=== PATIENT | female | born 1955 | race Caucasian/White ===

== ENCOUNTER 2024-04-05 13:51 | Emergency (ER) | payer MEDICARE, MEDICAID, SELFPAY ==
[2024-04-05] VITALS (39 sets, daily range): BP systolic 152–223; BP diastolic 64–164; PULSE 86–104; RESP 12–23; TEMP 37.2; O2SAT 88–97
--- NOTE | 2024-04-05 14:00 | RT.EKG_ITS ---
APPROVED REPORT Exam: Resting ECG Reason for Exam: General malaise Patient Location: E HR:95 bpm ECG Measurements Heart Rate 95 AXIS UT 147 P 59 QRSd 90 QRS -21 QT 387 T 25 QTc 485 Conclusion Sinus rhythm Rate 95 No STEMI
--- NOTE | 2024-04-05 14:08 | ED.GENADUL_ITS ---
Discharge Plan Disposition Patient Disposition: Home Condition: Stable Discharge Details Clinical Impression: Hypertension, Acute UTI, Candidal vulvovaginitis, Diabetes Primary Care Provider: Unknown,Unknown ED Provider: Bhumi Philip Home Meds and New Rx's Prescriptions: New cephalexin 500 mg capsule 500 mg PO QID 7 Days Qty: 28 0RF lisinopril 5 mg tablet 5 mg PO DAILY Qty: 30 0RF No Action CELEXA 40 MG tablet 40 mg PO DAILY Qty: 30 DESYREL 100 MG tablet 100 mg PO HS Qty: 30 GLUCOTROL 5 MG tablet 5 mg PO DAILY Qty: 30 GLUCOTROL 5 MG tablet 5 mg PO DAILY Qty: 30 HYDRODIURIL 25 MG tablet 25 mg PO DAILY Qty: 30 LEVOTHROID 125 MCG tablet 125 mcg PO DAILY Qty: 30 VALTREX 500 MG tablet 500 mg PO VALTREX 500 MG tablet 500 mg PO ZANTAC 150 MG capsule 150 mg PO ZANTAC 150 MG tablet 150 mg PO BID Qty: 30 ZESTRIL 20 MG tablet 20 mg PO DAILY Qty: 30 ZOCOR 20 MG tablet 20 mg PO HS Qty: 30 DETROL 1 MG tablet 1 mg PO BID Qty: 60 Discharge Instructions Instructions: Urinary tract infection - Discharge instructions Additional Instructions: You were seen in the emergency department today for vaginal discharge and urinary changes and were found to have have a vaginal yeast infection as well as a urinary tract infection. You also have uncontrolled diabetes and hypertension, though there was no evidence of damage to your heart or your kidneys on your workup today. You were provided with medications to treat your yeast infection, as well as the first dose of antibiotics for your urinary tract infection. You need to take all the antibiotics as prescribed, and take them until they are gone, even if you start to feel better. I have prescribed you lisinopril to start taking for your blood pressure, but you need to follow-up with your prima ry care provider in the next few days to discuss this visit and any symptoms that change, worsen, or persist. They will likely make changes to your medication regimen to get your blood pressure and diabetes back under control. You were given resources on aging from our care management team, and should utilize those as they are helpful to you. Thank you for allowing us to be part of your care. Discharge Data Discharge Date/Time-TO BE ENTERED AT DEPARTURE: 04/05/24 17:42 HPI General Mode of arrival: ambulatory . Date/Time Provider Initiated Documentation: 04/05/24 13:59 . Limitations to Documentation: no limitations . Information obtained by: patient, EMS and old records reviewed . HPI Narrative: MDM: This is a 68-year-old female patient presenting for evaluation of poor social supports and difficulty accessing the healthcare system, as well as vaginal discharge and blood from the perineum. My differential includes but is not limited to UTI, vaginitis/vaginosis, certainly considered sexually transmitted diseases, GI bleed/bloody stools including hemorrhoidal disease, diverticular bleed, AVM, colon cancer, diverticulitis. I considered metabolic electrolyte derangements, kidney injury, liver disease, anemia, poor nutritional status and dehydration. The patient's blood pressure is certainly quite elevated though she has no headache, changes in vision, neurodeficits to suggest CVA or intracranial hemorrhage, and no chest pain to suggest ACS. I also considered respiratory disease including pneumonia and upper respiratory sym ptoms, though the patient is without shortness of breath or new oxygen requirement to strongly suggest these etiologies. We will obtain laboratory studies to include CBC, CMP, magnesium, troponin, ur inalysis, and a vaginal pathogen's panel and GC/CT swab. We will obtain an EKG. I anticipate that this patient will require a care management consult pending completion of her workup given the poor living situation at home. ED Course: I independently interpreted the laboratory studies, which show no significant leukocytosis, anemia, or thrombocytopenia. The chemistry panel is without evidence of electrolyte abnormality, kidney dysfunction, or liver injury, with the exception of an elevated blood glucose of 362 and a low magnesium of 1.1. The patient's urinalysis is frankly positive with many bacteria, pyuria, and nitrites. I provided her with a dose of ceftriaxone and she will have a prescription for Keflex sent to her pharmacy. Her vaginal pathogen's panel was also positive for yeast, and she received a one-time dose of 150 mg fluconazole. Troponin was negative and I reviewed the EKG, which is nonischemic, and I have a low concern for endorgan damage after this workup due to her uncontrolled hypertension and diabetes. I did provide her with a dose of lisinopril, 10 mg, for management of her blood pressure as well as a prescription for this medication to be taken in the home environment. Care management met with the patient and provided her with resources on aging, and referral was placed to the [facility] for establishment of primary care. At this time, the patient has had a full medical evaluation and is safe for discharge to home. They are hemodynamically stable, ambulatory, and tolerating PO. They are understanding of the follow-up plan and return precautions. They left our facility without incident. Bhumi Philip MD HPI: This is a 68-year-old female patient with a past medical history significant for hypertension, hypothyroidism, presenting for evaluation of general malaise and vaginal discharge. The patient reports that she has been unable to access the healthcare system successfully for approximately 18 months. She is residing at a home with poor social supports, states that she has not been able to clean her home, clean herself, make it to medical appointments or access her prescriptions. She has noted for the past several months that sometimes when she wipes herself after using the bathroom she notes some blood, but is not sure if it is coming from her stool or from her vagina. She has noted a foul vaginal odor as well as new vaginal discharge and is concerned for a yeast infection. She reports that she is also unsure if she has a UTI. The patient reports that she is supposed to be cared for by her daughter, but states that her daughter is unwell. Her son, who resides in [place], plans to take her home after her visit to the hospital today. The patient specifically denies physical abuse or neglect in the outpatient environment. The patient reports that she just does not feel well but does not have any specific symptoms. Specifically she denies headache, chest pain, shortness of breath, abdominal pain, nausea or vomiting. She received 500 cc of fluid from EMS prior to arrival. The patient was noted to have a low-grade elevation in temperature to 99, no true fevers measured, and was hypertensive. Exam: Gen: Awake and alert, disheveled appearing adult patient with notable poor hygiene HEENT: Non-icteric sclera, pupils equal and reactive Neck: Supple Lungs: No apparent respiratory distress, normal respiratory effort. CV: Appears well perfused, strong and symmetrical distal pulses Abdomen: Non-distended, soft, nontender MSK: Moves 4 extremities without apparent limitation in ROM Skin: Visualized skin without rashes, cyanosis. Neuro: Slow but steady gait, no obvious focal deficits or facial asymmetry. Speaks in full, clear sentences. Psych: Appropriate for situation. Related Data Home Medications ?Medication ?Instructions ?Recorded ?Confirmed Celexa 40 mg PO DAILY ##30 09/16/12 Desyrel 100 mg PO HS ##30 09/16/12 Detrol 1 mg PO BID ##60 09/16/12 Glucotrol 5 mg PO DAILY ##30 09/16/12 Glucotrol 5 mg PO DAILY ##30 09/16/12 Hydrodiuril 25 mg PO DAILY ##30 09/16/12 Levothroid 125 mcg PO DAILY ##30 09/16/12 Valtrex 500 mg PO 09/16/12 Valtrex 500 mg PO 09/16/12 Zantac 150 mg PO 09/16/12 Zantac 150 mg PO BID ##30 09/16/12 Zestril 20 mg PO DAILY ##30 09/16/12 Zocor 20 mg PO HS ##30 09/16/12 cephalexin 500 mg capsule 500 mg PO QID 7 days #28 caps 04/05/24 lisinopril 5 mg tablet 5 mg PO DAILY #30 tabs 04/05/24 Previous Rx's ?Medication ?Instructions ?Recorded cephalexin 500 mg capsule 500 mg PO QID 7 days #28 caps 04/05/24 lisinopril 5 mg tablet 5 mg PO DAILY #30 tabs 04/05/24 General Stated Complaint: Urinary ADDY: 3 Course Vital Signs Vital signs: Vital Signs Temperature 37.2 C 04/05/24 13:50 Pulse 104 H 04/05/24 13:50 Respiratory Rate 20 04/05/24 13:50 Blood Pressure 196/91 H 04/05/24 13:50 Pulse Oximetry 95 04/05/24 13:50 Temperature 37.2 C 04/05/24 13:57 Temperature Source Oral 04/05/24 13:57 Pulse 104 H 04/05/24 13:57 Respiratory Rate 20 04/05/24 13:57 Respiratory Effort Normal 04/05/24 13:57 Blood Pressure 196/91 H 04/05/24 13:57 Blood Pressure Position Sitting 04/05/24 13:57 Pulse Oximetry 95 04/05/24 13:57 Oxygen Delivery Method Room Air 04/05/24 13:57 Oxygen Flow Rate 0 04/05/24 13:50 Pain Level 0 04/05/24 13:50 Medical Decision Making Quality:SDOH Health Related Social Needs: No Data to Display PFSH All Active Problems (Updated 04/05/24 @ 15:59 by Bhumi Philip MD) Diabetes (Chronic) Candidal vulvovaginitis (Acute) Acute UTI (Acute) Hypertension (Chronic) Social History Smoking risk assessment performed?: No
[2024-04-05 14:18] LABS: Abs Immature Grans 0.04 10^3/uL (0.0-0.06); Absolute Basophil Count 0.06 10^3/uL (0.0-0.2); Absolute Eosinophil Count 0.17 10^3/uL (0.0-0.7); Absolute Monocyte Count 0.76 10^3/uL (0.1-0.8); Absolute Neutrophil Count 5.78 10^3/uL (1.2-6.7); Basophils % 0.6 %; Eosinophils % 1.6 %; HGB 13.3 g/dL (11.2-15.7); Immature Grans % 0.4 %; Lymphocytes % 35.2 %; MCH 28.5 pg (27.0-33.0); MCHC 31.7 % (32.0-36.0); MCV 90 fL (80-95); MPV 9.6 fL (8.0-11.0); Monocytes % 7.2 %; Platelet Count 243 10^3/uL (130-400); RBC 4.66 10^6/uL (3.93-5.22); RDW 12.8 % (11.7-14.6); RDW-SD 42.4 fL; WBC 10.51 10^3/uL (4.4-10.8)
[2024-04-05 14:37] LABS: ALT 26 U/L (14-59); AST 13 U/L (15-37); Albumin 3.5 g/dL (3.4-5.0); Alkaline Phosphatase 155 U/L (46-116); BUN 12 mg/dL (7-18); Bilirubin, Total 0.56 mg/dL (0.2-1.0); CREATININE 0.9 mg/dL (0.55-1.02); Chloride 99 mmol/L (98-107); Estimated GFR 68.77 (mL/min/1.73m2); Glucose 362 mg/dL (74-106); Magnesium 1.1 mg/dL (1.8-2.4); Potassium 3.5 mmol/L (3.5-5.1); Sodium 136 mmol/L (136-145); Total Protein 7.6 g/dL (6.4-8.2); Troponin I < 50 ng/L (< or =60)
[2024-04-05 14:43] LABS: Bilirubin Negative (Negative); Blood Trace-intact (Negative); Clarity Cloudy (Clear); Glucose >=1000 mg/dL (Negative); Ketones Trace mg/dL (Negative); Leukocyte Esterase Negative (Negative); Nitrite Positive (Negative); Urobilinogen 0.2 mg/dL (Up to 0.2); pH 5.5 (5-8)
[2024-04-05] MEDS: MAGNESIUM SULFATE 2 GM/50 ML BAG IVINF (14:47)
[2024-04-05 14:49] LABS: Bacteria Many HPF (Negative); C & S Indicated? Yes; Crystals Negative HPF (Negative); Epithelial Cells Rare HPF (Negative); Mucus Negative (Negative)
[2024-04-05] MEDS: Fluconazole 150 MG TAB PO (16:16)
[2024-04-05] MEDS: Lisinopril 10 MG TAB PO (16:17)
--- NOTE | 2024-04-05 16:42 | NUR.NOTE ---
Referral faxed to [facility]; Graciela Justin managed care liaison for telephone call; needs PCP. Establish care, diabetes, HTN, within 1 week. Nursing Note:
[2024-04-05] MEDS: cefTRIAXone 1 GM/50 ML BAG IVPB (16:50)
[2024-04-07 12:55] LABS: Chlamydia Result Negative (Negative); GC Result Negative (Negative)
== END 2024-04-05 17:42 | disposition home or self-care (01) ==
LOC: ER 17:16
PROVIDERS: Emergency Medicine; Emergency Provider Emergency Medicine
DX: R53.1 Weakness; N39.0 Urinary tract infection, site not specified; B37.31 Acute candidiasis of vulva and vagina; I10 Essential (primary) hypertension; E11.9 Type 2 diabetes mellitus without complications; E03.9 Hypothyroidism, unspecified; Z79.899 Other long term (current) drug therapy
CPT/HCPCS: 36415; 80053; 87077; 87491; 87591; 93005; 96365; 96366; 96375; 99284; 81003; 81015; 83735; 84484; 85025; 87086; 87186; 87480; 87510; 87660; 93010; J0696; J3475

== ENCOUNTER 2024-04-08 16:58 | Outpatient (REF) | payer MEDICARE, MEDICAID, SELFPAY ==
[2024-04-08 17:42] LABS: Magnesium 1.2 mg/dL (1.8-2.4); TSH (W/Ref FT4) 8.94 uIU/mL (0.36-3.74)
[2024-04-08 18:05] LABS: FREE T4 1.26 ng/dL (0.76-1.46)
== END 2024-04-08 16:59 | disposition home or self-care (01) ==
LOC: NCHCN 16:58
PROVIDERS: Visit Provider Family Medicine
DX: E03.9 Hypothyroidism, unspecified (principal); E83.42 Hypomagnesemia
CPT/HCPCS: 83735; 84439; 84443

== ENCOUNTER 2024-04-28 17:58 | Outpatient (REF) | payer MEDICARE, MEDICAID, SELFPAY | END 2024-04-28 17:59 | disposition home or self-care (01) | LOC: NCHCN 17:58 | PROVIDERS: PCP Family Medicine; Visit Provider Family Medicine | DX: R31.9 Hematuria, unspecified (principal); R82.89 Other abnormal findings on cytological and histological examination of urine | CPT/HCPCS: 87077; 87086; 87186 ==

== ENCOUNTER 2024-06-18 11:31 | Outpatient (REF) | payer MEDICARE, MEDICAID, SELFPAY ==
[2024-06-18 14:54] LABS: Abs Immature Grans 0.03 10^3/uL (0.0-0.06); Absolute Basophil Count 0.05 10^3/uL (0.0-0.2); Absolute Eosinophil Count 0.17 10^3/uL (0.0-0.7); Absolute Lymphocyte Count 3.23 10^3/uL (1.2-3.4); Absolute Monocyte Count 0.73 10^3/uL (0.1-0.8); Absolute Neutrophil Count 6.14 10^3/uL (1.2-6.7); Basophils % 0.5 %; Eosinophils % 1.6 %; HCT 39.7 % (36.0-46.0); HGB 12.5 g/dL (11.2-15.7); Immature Grans % 0.3 %; Lymphocytes % 31.2 %; MCH 27.3 pg (27.0-33.0); MCHC 31.5 % (32.0-36.0); MCV 87 fL (80-95); MPV 10.1 fL (8.0-11.0); Monocytes % 7.1 %; Neutrophils % 59.3 %; Platelet Count 315 10^3/uL (130-400); RBC 4.58 10^6/uL (3.93-5.22); RDW 12.6 % (11.7-14.6); RDW-SD 39.6 fL; WBC 10.35 10^3/uL (4.4-10.8)
[2024-06-18 15:22] LABS: Magnesium 1.6 mg/dL (1.8-2.4); TSH (W/Ref FT4) 3.76 uIU/mL (0.36-3.74)
[2024-06-18 15:48] LABS: FREE T4 1.22 ng/dL (0.76-1.46)
== END 2024-06-18 11:32 | disposition home or self-care (01) ==
LOC: NCHCN 11:31
PROVIDERS: PCP Family Medicine; Visit Provider Family Medicine
DX: E03.9 Hypothyroidism, unspecified (principal)
CPT/HCPCS: 83735; 84439; 84443; 85025

== ENCOUNTER 2024-06-28 01:15 | Outpatient (CLI) | payer MEDICARE, MEDICAID, SELFPAY ==
--- NOTE | 2024-06-28 | DI.US_ITS ---
Exam(s) US PELVIS TRANSVAGINAL EXAM: US PELVIS TRANSVAGINAL CLINICAL HISTORY: Abnl uterine and vaginal bleeding, N93.9 TECHNIQUE: Transabdominal and transvaginal imaging was performed using standard protocol. COMPARISON: No exams were available for comparison FINDINGS: The exam is limited by patient body habitus. UTERUS: Anteverted. 9.1 x 4.7 x 5.7 cm Endometrium: Grossly thickened, proximally 2.1 mm. The endometrial borders are not well-defined. Myometrium: 5 centimeter fibroid near the fundus. Cervix: Unremarkable. OVARIES: Right: Cyst or mass: None. Left: Not visualized. CUL-DE-SAC: Free fluid: None. IMPRESSION: Ill-defined, thickened heterogeneous endometrium. MRI could be performed for further evaluation. 5 centimeter fibroid. Right ovary is grossly unremarkable. Left ovary not visualized. DATA REPOSITORY:
== END 2024-06-28 01:35 ==
PROVIDERS: PCP Family Medicine; Visit Provider Family Medicine
DX: N93.9 Abnormal uterine and vaginal bleeding, unspecified (principal)
CPT/HCPCS: 76830; 76856

== ENCOUNTER 2024-08-17 17:01 | Outpatient (REF) | payer MEDICARE, MEDICAID, SELFPAY ==
[2024-08-17 15:48] LABS: Abs Immature Grans 0.02 10^3/uL (0.0-0.06); Absolute Eosinophil Count 0.21 10^3/uL (0.0-0.7); Absolute Lymphocyte Count 3.31 10^3/uL (1.2-3.4); Absolute Monocyte Count 0.76 10^3/uL (0.1-0.8); Absolute Neutrophil Count 6.87 10^3/uL (1.2-6.7); Basophils % 0.4 %; Eosinophils % 1.9 %; HCT 41.2 % (36.0-46.0); HGB 12.8 g/dL (11.2-15.7); Immature Grans % 0.2 %; Lymphocytes % 29.5 %; MCH 27.1 pg (27.0-33.0); MCHC 31.1 % (32.0-36.0); MCV 87 fL (80-95); MPV 10.6 fL (8.0-11.0); Monocytes % 6.8 %; Neutrophils % 61.2 %; Platelet Count 261 10^3/uL (130-400); RBC 4.72 10^6/uL (3.93-5.22); RDW 13.4 % (11.7-14.6); RDW-SD 42.9 fL; WBC 11.22 10^3/uL (4.4-10.8)
[2024-08-17 15:52] LABS: Absolute Basophil Count 0.04 10^3/uL (0.0-0.2)
[2024-08-17 16:08] LABS: ALT 18 U/L (14-59); AST 13 U/L (15-37); Albumin 3.8 g/dL (3.4-5.0); Alkaline Phosphatase 143 U/L (46-116); Anion Gap 8.7 mmol/L (3-11); BUN 20 mg/dL (7-18); Bilirubin, Total 0.23 mg/dL (0.2-1.0); CO2 29.3 mmol/L (21.0-32.0); CREATININE 0.8 mg/dL (0.55-1.02); Calcium 9.8 mg/dL (8.5-10.1); Calculated LDL 71 mg/dL (<100); Chloride 107 mmol/L (98-107); Cholesterol 154 mg/dL (<200); Estimated GFR 78.72 (mL/min/1.73m2); Glucose 186 mg/dL (74-106); HDL Cholesterol 41 mg/dL (40-60); Magnesium 1.5 mg/dL (1.8-2.4); Potassium 3.7 mmol/L (3.5-5.1); Sodium 145 mmol/L (136-145); TSH (W/Ref FT4) 4.43 uIU/mL (0.36-3.74); Total Protein 7.6 g/dL (6.4-8.2); Triglyceride 212 mg/dL (<150)
[2024-08-17 16:38] LABS: FREE T4 1.07 ng/dL (0.76-1.46)
== END 2024-08-17 17:02 | disposition home or self-care (01) ==
LOC: NCHCN 17:01
PROVIDERS: PCP Family Medicine; Visit Provider Family Medicine
DX: E03.9 Hypothyroidism, unspecified (principal); N93.9 Abnormal uterine and vaginal bleeding, unspecified
CPT/HCPCS: 80053; 80061; 83735; 84439; 84443; 85025

== ENCOUNTER 2024-08-26 22:52 | Outpatient (REF) | payer MEDICARE, MEDICAID, SELFPAY ==
[2024-08-26 16:19] LABS: Bilirubin Negative (Negative); Blood Moderate (Negative); Clarity Cloudy (Clear); Glucose Negative (Negative); Ketones Negative (Negative); Leukocyte Esterase Trace (Negative); Nitrite Negative (Negative); Specific Gravity >= 1.030 (1.005-1.025); Urobilinogen 0.2 mg/dL (Up to 0.2); pH 5.5 (5-8)
[2024-08-26 17:16] LABS: Bacteria Many HPF (Negative); C & S Indicated? C&S Done As Ordered; Casts Negative LPF (Negative); Crystals Negative HPF (Negative); Epithelial Cells Many HPF (Negative); Mucus Negative (Negative)
== END 2024-08-26 22:53 | disposition home or self-care (01) ==
LOC: NCHCN 22:52
PROVIDERS: PCP Family Medicine; Visit Provider Nurse Practitioner Family
DX: R82.90 Unspecified abnormal findings in urine (principal)
CPT/HCPCS: 81003; 81015; 87086

== ENCOUNTER 2024-09-07 15:36 | Outpatient (REF) | payer MEDICARE, MEDICAID, SELFPAY ==
--- NOTE | 2024-09-07 15:00 | ENDOMET_PTH ---
PATIENT: Stephanie العراقي LOC: [facility] U#:[id number] AGE/SX: 69/F ROOM: RE09/07/[address]: Doris Mcbride MD : [id number] BED: DIS: 09/07/2024 SPEC #: [id number] RECD: 09/07/24 16:47 STATUS: AMBER REQ #: [id number] NANI: 09/07/24 15:[address]: Doris Mcbride DEPT: Surgical Specimen RECD BY: Michelle Malik ENTERED: 09/07/24 16:47 SP TYPE: Endomet OTHR DR: Kika Norman Tissues: 1 - ENDOMETRIUM BX/SALENA Procedures: GROSS AND MICRO LEVEL 4 IMMUNOPEROXIDASE STAIN Comments: [id number] (PLEASE [facility])
== END 2024-09-07 15:37 | disposition home or self-care (01) ==
LOC: LBN 15:36
PROVIDERS: PCP Family Medicine; Visit Provider Obstetrics & Gynecology
DX: N95.0 Postmenopausal bleeding (principal); C55 Malignant neoplasm of uterus, part unspecified
CPT/HCPCS: 88305; 88361

== ENCOUNTER 2024-10-03 18:12 | Inpatient (IN) | payer MEDICARE, MEDICAID, SELFPAY ==
[2024-10-03] VITALS (49 sets, daily range): BP systolic 100–206; BP diastolic 52–103; PULSE 94–138; RESP 16–33; TEMP 39.5; O2SAT 90–99
--- NOTE | 2024-10-03 18:00 | RT.EKG_ITS ---
APPROVED REPORT Exam: Resting ECG Reason for Exam: Increased Heart Rate Patient Location: E HR:129 bpm ECG Measurements Heart Rate 129 AXIS NC 145 P 67 QRSd 77 QRS -20 QT 312 T 56 QTc 458 Conclusion Sinus tachycardia...rate> 99 Probable LVH with secondary repol abnrm...multiple LVH criteria I have reviewed and interpreted ECG and agree with software generated interpretation. There are no significant changes compared to prior EKG performed on 04/05/2024 at 14:35.
--- NOTE | 2024-10-03 18:06 | W.ED.GENAD ---
Discharge Plan Disposition Condition: Stable Discharge Details Chief Complaint: RespSymp Clinical Impression: Serous carcinoma of body of uterus, Endometritis, Altered mental status, Severe sepsis Primary Care Provider: Kika Norman [facility] Prescriptions: No Action lisinopril 5 mg tablet 20 mg PO DAILY aspirin [Adult Aspirin Regimen] 81 mg tablet,delayed release (DR/EC) 81 mg PO DAILY glipizide 10 mg tablet 10 mg PO DAILY Januvia 100 mg tablet 100 mg PO DAILY levothyroxine 125 mcg capsule 125 mcg PO DAILY pantoprazole 40 mg tablet,delayed release (DR/EC) 40 mg PO DAILY simvastatin 20 mg tablet 20 mg PO DAILY tolterodine 1 mg tablet 1 mg PO BID citalopram 40 mg tablet 40 mg PO DAILY tolterodine [Detrol] 1 mg tablet 1 mg PO BID Januvia 100 mg tablet 100 mg PO DAILY magnesium oxide 400 mg magnesium tablet 400 mg PO DAILY (DME) Prevail Brief Large Misc See Rx Instructions .Route Qty: 64 6RF Rx Instructions: As directed ibuprofen 600 mg tablet 600 mg PO Q6H PRN (Reason: pain) Qty: 60 0RF HPI General Mode of arrival: EMS. Date/Time Provider Initiated Documentation: 10/03/24 18:20. Limitations to Documentation: no limitations. Information obtained by: patient, family, RN notes reviewed and old records reviewed. HPI Narrative: Patient presenting to ED from home with fever, chills, altered mental status. Patient apparently woke up this morning not feeling right. She has become worse over the course of today. She is reporting lower abdominal pain. Denies having a cough, chest pain, shortness of breath. Son reporting that she is not at her baseline mentally and seems very off. No report of any trauma. Patient without headache. Related Data Home Medications ?Medication ?Instructions ?Recorded ?Confirmed aspirin 81 mg tablet,delayed 81 mg PO DAILY 09/07/24 10/03/24 release (Adult Aspirin Regimen) citalopram 40 mg tablet 40 mg PO DAILY 09/07/24 10/03/24 glipizide 10 mg tablet 10 mg PO DAILY 09/07/24 10/03/24 levothyroxine 125 mcg capsule 125 mcg PO DAILY 09/07/24 10/03/24 lisinopril 5 mg tablet 20 mg PO DAILY 09/07/24 10/03/24 magnesium oxide 400 mg PO DAILY 09/07/24 10/03/24 pantoprazole 40 mg tablet,delayed 40 mg PO DAILY 09/07/24 10/03/24 release simvastatin 20 mg tablet 20 mg PO DAILY 09/07/24 10/03/24 sitagliptin phosphate 100 mg 100 mg PO DAILY 09/07/24 10/03/24 tablet (Januvia) sitagliptin phosphate 100 mg 100 mg PO DAILY 09/07/24 10/03/24 tablet (Januvia) tolterodine 1 mg tablet 1 mg PO BID 09/07/24 10/03/24 tolterodine 1 mg tablet (Detrol) 1 mg PO BID 09/07/24 10/03/24 diaper,brief,adult,disposable #64 ea 09/30/24 (Prevail Brief Large) ibuprofen 600 mg tablet 600 mg PO Q6H PRN pain #60 tabs 09/30/24 10/03/24 Previous Rx's ?Medication ?Instructions ?Recorded diaper,brief,adult,disposable #64 ea 09/30/24 (Prevail Brief Large) ibuprofen 600 mg tablet 600 mg PO Q6H PRN pain #60 tabs 09/30/24 Allergies Allergy/AdvReac Type Severity Reaction Status Date / Time sulfamethoxazole (From Allergy Hives Verified 10/03/24 18:19 Bactrim) trimethoprim (From Bactrim) Allergy Hives Verified 10/03/24 18:19 General ADDY: 3 Exam Narrative Exam Narrative: Const: WDWN elderly female in NAD. VS per triage. HEENT: NC/AT. Normal facial exam. Neck: Supple. Trachea midline. Lungs: Normal respiratory effort. Lungs are clear. Cor: RRR without murmur. Good radial pulses. GI: Soft/ND/NT. Neuro: A+O x 3. Normal speech. Cranial nerves II - XII grossly intact. No gross motor or sensory deficit. Ext: No C/C/E. Medical Decision Making Patient presenting to ED from home with fever and altered mental status. She is restless and per the son not at baseline but does not appear overly confused. Complains of low abdominal pain. 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 Complains of abdominal pain but appears to have a benign abdomen. IV is in place but she is received very minimal fluid during transport. She is tachycardic and febrile here. Blood pressures are soft but not truly hypotensive. Second IV established and laboratory studies sent. Blood cultures and nasal swab obtained. Straight cath urine ordered. Initial fluid bolus of 1500 total ordered. Patient's lactate came back elevated greater than 4. Second liter of fluids to be given for a total of 2500 mL, just under the 30 cc/kg range. She was given IV acetaminophen for fever. Her white count is elevated to 14. Chemistries unremarkable except for slight gap of 15 and a glucose of almost 300. Magnesium is low and has been previously. She will be repleted as she is 1.3 today. Liver function and lipase are fine. Urinalysis with red cells but no evidence of infection. Nasal swab has returned negative. Currently pending CT scans which are difficult to obtain due to restlessness. Will try IV lorazepam to help with obtaining images. Only able to obtain CT head which was limited but negative per preliminary radiology read. Has also not received much of her fluid bolus due to repeatedly bending her arm. 14-gauge ultrasound-guided IV placed by nursing. Will resume fluid bolus. Will give 2.5 mg haloperidol IV in an attempt to obtain CT of the body given negative urine and negative swab. Able to obtain CT after Haldol. Received a call directly from radiologist. Patient has noted to have an enlarged uterus with evidence of debris and air in the endometrium and uterus itself highly suggestive of infection. No other findings noted. Patient started on IV Zosyn. Heart rate and blood pressure improved with fluid bolus which is still ongoing. Discussed with Dr. Wheat from [facility] here. Recommend transfer to higher level of care. Call placed to [facility]. Discussed with patient and family who is aware of diagnosis and need for transfer and consents to same. Repeat lactate now normal after fluids and heart rate/BP now normal. [facility] is at capacity and cannot take patient. [facility] has been contacted. Care turned over to Dr. Card pending transfer. Medical Records Medical records reviewed: Yes I reviewed the patient's medical records. Medical records narrative: Supervisor Mails notes/Pathology Report Lab Data Lab results reviewed: Yes I reviewed the patient's lab results. Lab results narrative: see [facility] ECG Data Attestation: I personally reviewed and interpreted this ECG (s) as follows: Prior ECG tracings: available for review Interpretation: see EKG/MDM Critical Care Time Critical Care Time Critical Care Time: Yes Total Critical Care Time: 60 Attestation: Upon my evaluation, this patient had a high probability of imminent or life-threatening deterioration, which required my direct attention, intervention, and personal management. I have personally provided 60 minutes of critical care time exclusive of time spent on separately billable procedures. Time includes monitoring for potential decompensation, ordering of tests and medications, review of laboratory and radiology results, discussion with consultants and documentation . Interventions were performed as documented above in procedures. PFSH All Active Problems (Updated 10/03/24 @ 21:46 by Sebastien Hensley MD) Severe sepsis (Acute) Altered mental status (Acute) Endometritis (Acute) Serous carcinoma of body of uterus (Acute) Endometrial cancer determined by uterine biopsy (Acute) Postmenopausal bleeding (Acute) thickened endometrium Endo bx 09/07/24 Medical History Psoriasis Vitamin D deficiency Anemia Steatosis of liver Hypomagnesemia Panic disorder Urinary incontinence Diplegic cerebral palsy GERD (gastroesophageal reflux disease) Hypothyroidism Hyperlipidemia Diabetes Hypertension Social History Smoking/Tobacco Use Status: Never Smoking risk assessment performed?: Yes Alcohol Intake: former Substance use type: does not use Female Reproductive History Menstrual Age of Menarche: 8 History History Para 8 Hx # Term Pregnancies Multiple births Hx # Pregnancies Ectopic pregnancies AB induced Hx Number of Living Children AB spontaneous
--- NOTE | 2024-10-03 18:20 | DI.CT_ITS ---
Exam(s) CT CHEST/ABD/PEL W EXAM: CT CHEST/ABD/PEL W CLINICAL HISTORY: fever, abdominal pain. TECHNIQUE: Imaging Protocol: Axial computed tomography images with coronal and sagittal reformatted images were created and reviewed. Computer aided detection (CAD) was utilized. CONTRAST MATERIAL: Intravenous: Omnipaque 350 Contrast volume:100 ml Oral: no COMPARISON: Pelvic ultrasound 28 June 2024 FINDINGS: CHEST: Tracheobronchial tree: Patent. Pulmonary parenchyma: No consolidation or dominant measurable mass. Dependent changes. Pleura: No effusion or pneumothorax. Mediastinum: Small hiatal hernia. Aorta: Thoracic portion non-dilated. Pulmonary arteries: Not dilated. No visible emboli. Heart: No pericardial effusion. Bones: Prominent endplate osteophytes. No lytic or blastic lesions.No compression fractures. Soft tissues: Unremarkable. ABDOMEN and PELVIS: Liver: Normal density. No measurable mass. Gallbladder and biliary tract: Not visualized. No biliary dilatation. Pancreas: Normal density, no abnormal calcifications or inflammatory process. Spleen: Normal. Kidneys: Normal size, contour and axis. Tiny nonobstructing stone lower pole left kidney. No obstruc tive uropathy. No suspicious masses seen. Adrenal glands: No masses seen. Aorta: Abdominal portion non-dilated. Lymph nodes: Within normal limits. Soft tissues: Unremarkable. Bladder: Nearly empty. Unremarkable. Bowel: No obstruction or bowel wall thickening. Peritoneal cavity: No ascites. No focal collection. No mesenteric inflammatory response. No free ai r. Bones: Degenerative changes and mild scoliosis. Reproductive organs: The endometrium is markedly thickened up to 5 cm. There is heterogeneous high a ttenuation material which could represent hemorrhage. The endometrium was thickened on the prior ult rasound and was ill-defined. There is also air suspicious for infection. Small contour deformity an terior lower uterine segment could represent a small fibroid. IMPRESSION: No acute abnormality in the chest. Marked endometrial thickening high-density and air which could indicate infection and hemorrhage.. P rior pelvic ultrasound also show marked endometrial thickening. Findings are suspicious for underlyi ng malignancy. Unexpected findings RADIATION DOSE DELIVERED: 544.58mGy.cm Total DLP DATA REPOSITORY: All CT scans at this facility are submitted to the National Radiology Data Registry (NRDR) Dose Index Registry (DIR) with the [employer] ([employer]). RADIATION OPTIMIZATION: All CT scans at this facility use at least one of these dose optimization te chniques: automated exposure control; mA and/or kV adjustment per patient size (includes targeted exa ms where dose is matched to clinical indication); or iterative reconstruction.
[2024-10-03 18:36] LABS: Absolute Basophil Count 0.07 10^3/uL (0.0-0.2); Absolute Eosinophil Count 0.08 10^3/uL (0.0-0.7); Absolute Monocyte Count 0.38 10^3/uL (0.1-0.8); Basophils % 0.5 %; Eosinophils % 0.6 %; HCT 37.2 % (36.0-46.0); HGB 11.5 g/dL (11.2-15.7); Immature Grans % 0.7 %; Lactate 4.6 mmol/L (<or=2.0); Lymphocytes % 11.4 %; MCH 26.9 pg (27.0-33.0); MCHC 30.9 % (32.0-36.0); MCV 87 fL (80-95); MPV 8.9 fL (8.0-11.0); Monocytes % 2.7 %; Neutrophils % 84.1 %; Platelet Count 347 10^3/uL (130-400); RBC 4.27 10^6/uL (3.93-5.22); RDW 14.4 % (11.7-14.6); RDW-SD 46.2 fL; WBC 13.99 10^3/uL (4.4-10.8)
[2024-10-03 18:37] LABS: Absolute Lymphocyte Count 1.59 10^3/uL (1.2-3.4); Absolute Neutrophil Count 11.77 10^3/uL (1.2-6.7)
[2024-10-03 18:52] LABS: ALT 39 U/L (14-59); AST 25 U/L (15-37); Albumin 3.3 g/dL (3.4-5.0); Alkaline Phosphatase 179 U/L (46-116); BUN 12 mg/dL (7-18); Bilirubin, Total 0.32 mg/dL (0.2-1.0); Calcium 9.6 mg/dL (8.5-10.1); Chloride 100 mmol/L (98-107); Estimated GFR 60.23 (mL/min/1.73m2); Glucose 298 mg/dL (74-106); Lipase 25 U/L (<78); Magnesium 1.3 mg/dL (1.8-2.4); Potassium 4.3 mmol/L (3.5-5.1); Sodium 138 mmol/L (136-145); Total Protein 8.2 g/dL (6.4-8.2)
[2024-10-03 18:55] LABS: Bilirubin Negative (Negative); Blood Large (Negative); Clarity Clear (Clear); Glucose 500 mg/dL (Negative); Ketones Negative (Negative); Leukocyte Esterase Negative (Negative); Nitrite Negative (Negative); Specific Gravity 1.025 (1.005-1.025); Urobilinogen 0.2 mg/dL (Up to 0.2); pH 5.5 (5-8)
--- NOTE | 2024-10-03 19:00 | DI.CT_ITS ---
Exam(s) CT HEAD WO EXAM: CT HEAD WO CLINICAL HISTORY: AMS. TECHNIQUE: Imaging Protocol: Axial computed tomography images with coronal and sagittal reformatted images were created and reviewed COMPARISON: CT HEAD WITHOUT CONTRAST from 03/04/2011 FINDINGS: The exam is significantly limited by motion. Ventricles and Extra axial spaces: Normal in size and morphology for the patient's age. Hemorrhage: No large hemorrhage. Cerebral parenchyma: No gross evidence of acute infarct or mass. Midline shift: None. Brainstem/Cerebellum: Normal. Calvarium: Normal. Visualized Paranasal sinuses:Clear. Mastoids: Clear. Soft Tissues: Unremarkable. ORBITS: Unremarkable. PITUITARY: Not enlarged. IMPRESSION: Extremely limited exam. No gross evidence of an acute intracranial process. RADIATION DOSE DELIVERED: 2,114.26mGy.cm Total DLP DATA REPOSITORY: All CT scans at this facility are submitted to the National Radiology Data Registry (NRDR) Dose Index Registry (DIR) with the [employer] (A[employer]). RADIATION OPTIMIZATION: All CT scans at this facility use at least one of these dose optimization te chniques: automated exposure control; mA and/or kV adjustment per patient size (includes targeted exa ms where dose is matched to clinical indication); or iterative reconstruction.
[2024-10-03 19:01] LABS: Bacteria Negative HPF (Negative); C & S Indicated? No; Crystals Negative HPF (Negative); Epithelial Cells Moderate HPF (Negative); Mucus Negative (Negative); RBC 20-50 HPF (0-2)
[2024-10-03] MEDS: LORazepam 2 MG/ML VIAL 0.5 MG IVP ×2 (19:20→19:52)
[2024-10-03 19:27] LABS: COVID-19 PCR Negative (Negative); Influenza A PCR Negative (Negative); Influenza B PCR Negative (Negative); RSV PCR Negative (Negative)
[2024-10-03 19:28] LABS: Source NASOPHARYNX
[2024-10-03] MEDS: Acetaminophen 500 MG TAB 1000 MG PO (19:50)
[2024-10-03] MEDS: Normal Saline 500 ML IV (19:50)
[2024-10-03] MEDS: Normal Saline 1,000 ML 1000 ML IV (20:30)
[2024-10-03] MEDS: MAGNESIUM SULFATE 2 GM/50 ML BAG IV_INF (20:30)
[2024-10-03] MEDS: Haloperidol 5 MG/ML VIAL 2.5 MG IV (20:33)
--- NOTE | 2024-10-03 20:36 | DI.VRAD_ITS ---
PROCEDURE INFORMATION: Exam: CT Head Without Contrast Exam date and time: 10/03/2024 7:17 PM Age: 69 years old Clinical indication: Other: AMS; Additional info: Multiple attempts made for head CT, all images sent, best possible TECHNIQUE: Imaging protocol: Computed tomography of the head without contrast. COMPARISON: No relevant prior studies available. FINDINGS: Brain: Motion significantly limits the exam. There is no gross intracranial hemorrhage. Cisterns and sulci appear intact without significant mass effect. No evidence for ventricular distension. Cerebral ventricles: See Brain finding. Paranasal sinuses: Visualized sinuses are unremarkable. No fluid levels. Mastoid air cells: Visualized mastoid air cells are well aerated. Bones: Unremarkable. No acute fracture. Soft tissues: Unremarkable. IMPRESSION: Limited exam. No gross acute abnormality evident. Dictated and Authenticated by: Cristal Wright MD. Orderin Ayden Crowe MD
[2024-10-03] MEDS: Omnipaque 350 MG/ML 100 ML BTL IJ (20:59)
[2024-10-03] MEDS: Normal Saline - Diluent 50 ML VIAL IJ (20:59)
--- NOTE | 2024-10-03 21:23 | DI.VRAD_ITS ---
PROCEDURE INFORMATION: Exam: CT Chest With Contrast; Diagnostic Exam date and time: 10/03/2024 8:53 PM Age: 69 years old Clinical indication: Other: Fever, abdominal pain TECHNIQUE: Imaging protocol: Diagnostic computed tomography of the chest with contrast. 3D rendering (Not supervised by radiologist): MIP and/or 3D reconstructed images were created by the technologist. Contrast material: 350; Contrast volume: 100 ml; Contrast route: INTRAVENOUS (IV); COMPARISON: No relevant prior studies available. FINDINGS: Lungs: Unremarkable. No consolidation. No masses. Pleural spaces: Unremarkable. No pneumothorax. No pleural effusion. Heart: Unremarkable. No cardiomegaly. No pericardial effusion. Lymph nodes: Unremarkable. No enlarged lymph nodes. Vasculature: Unremarkable. No aortic aneurysm. Diaphragm: Small hiatal hernia. Bones/joints: Unremarkable. No acute fracture. Soft tissues: Unremarkable. Other findings: Impression new no evidence for acute abnormality in the chest. IMPRESSION: PROCEDURE INFORMATION: Exam: CT Abdomen And Pelvis With Contrast Exam date and time: 10/03/2024 8:53 PM Age: 69 years old Clinical indication: Other: Fever, abdominal pain TECHNIQUE: Imaging protocol: Computed tomography of the abdomen and pelvis with contrast. 3D rendering (Not supervised by radiologist): MIP and/or 3D reconstructed images were created by the technologist. Contrast material: 350; Contrast volume: 100 ml; Contrast route: INTRAVENOUS (IV); COMPARISON: US PELVIS TRANSVAGINAL 06/28/2024 2:04 PM FINDINGS: Liver: Normal. No mass. Gallbladder and biliary ducts: Gallbladder absent. Pancreas: Normal. No ductal dilation. Spleen: Normal. No splenomegaly. Adrenal glands: Normal. No mass. Kidneys and ureters: Small bilateral renal cysts. Renal perfusion is symmetric without hydronephrosis or hydroureter. Stomach and bowel: Unremarkable. No obstruction. No mucosal thickening. Appendix: No evidence of appendicitis. Intraperitoneal space: Unremarkable. No free air. No significant fluid collection. Vasculature: Unremarkable. No abdominal aortic aneurysm. Lymph nodes: Unremarkable. No enlarged lymph nodes. Urinary bladder: The bladder is not well distended. Reproductive: The uterus is enlarged. The endometrium is markedly thickened measuring up to 5.6 cm. The uterus measures up to 12.7 cm cc and nearly 9 cm transverse. Small amounts of air as well as high density material are present within the uterus of concern for possible hemorrhage and anaerobic infection. Appreciated on coronal evaluation series 11 image 250 there is the suggestion for possible mass at the lower uterine segment measuring up to 3.6 cm. Bones/joints: There is heterotopic bone adjacent to both hips, left worse than right suggesting prior trauma. Soft tissues: Unremarkable. IMPRESSION: Markedly abnormal uterine findings of concern for endometrial outlet obstruction, superimposed infection, probable blood products and possible underlying neoplasm. I discussed case findings with HANNY KENDRICK 10/03/2024 9:20 PM EST. Dictated and Authenticated by: Cristal Wright MD. Orderin Ayden Crowe MD
[2024-10-03] MEDS: Lactated Ringers 1,000 ML 1000 ML IV (21:27)
[2024-10-03 22:48] LABS: Lactate 1.7 mmol/L (<or=2.0)
[2024-10-04] VITALS (27 sets, daily range): BP systolic 121–150; BP diastolic 53–89; PULSE 82–100; RESP 12–23; TEMP 36.1–36.8; O2SAT 92–98
--- NOTE | 2024-10-04 01:39 | ED.PROG_ITS ---
Date of service: 10/04/24 Time of Service: 01:39 Medical Decision Making Patient was signed out to me by Antonio Hensley. Please refer to his HPI, physical exam, assessment and plan. Prior to signout the following occurred, patient has known endometrial cancer, she came in today feeling unwell and was noted to be i n severe sepsis with heart rate in the 140s, low blood pressure at 100 systolic, elevated white count and a lactate greater than 4. She was resuscitated with IV fluids, Zosyn, and medically managed. She had a notable medical improvement, heart rate came down to the 80s to low 90s, blood pressure increased to the 150 systolic, mental status improved. Elevated lactate completely resolved and it i s now 1.7. COVID flu and RSV negative. CT of the chest negative for acute process, CT of the abdomen pelvis shows evidence of endometritis, which Dr. Hensley felt this appropriately to be the source of the symptoms and sepsis. He did contact Dr. Wheat, who recommended further discussion with [facility]. Both of these facilities are at capacity, however there [facility] oncology services spoke with Dr. Hensley, specifically Dr. Stark spoke with Dr. Hensley and stated that she did not believe that the patient required surgical intervention immediately at this time, but rather needed to be medically managed. She recommended admission at our facility for continued medical management and then subsequent outpatient gynecological oncology follow-up. We discussed this with Dr. Wheat, and she is happy to be on consult as needed. We discussed this with the hospitalist Dr. Siddiqui, and he accepts the patient for admission. At this time with the patient's complete improvement of vital signs, she does not necessitate ICU admission currently. As she has demonstrated notable improvement and now shows hemodynamic stability. Patient will be placed on [facility] with telemetry for continued admission and medical management. I did place admission orders on Dr. Tate's behalf at his request. Patient states that she is also full code. I have extensively reviewed the treatment plan with the patient. I have addressed all patient concerns at this time. I have also discussed the plan with the admitting physician and they agree with the current assessment and plan and have agreed to assume responsibility for the patient. All parties demonstrate verbal understanding and agreement with our assessment and plan at this time. The documentation in this chart was dictated using [employer] dictation software. Please excuse any dictation errors. Quality:SDHI Health Related Social Needs: No Data to Display Discharge Plan Disposition Patient Disposition: Admit to [facility] Condition: Improving Discharge Details Chief Complaint: RespSymp Clinical Impression: Serous carcinoma of body of uterus, Endometritis, Altered mental status, Severe sepsis Primary Care Provider: Kika Norman ED Provider: Sebastien Hensley Parkin Damien and New Rx's Prescriptions: No Action lisinopril 5 mg tablet 20 mg PO DAILY aspirin [Adult Aspirin Regimen] 81 mg tablet,delayed release (DR/EC) 81 mg PO DAILY glipizide 10 mg tablet 10 mg PO DAILY Januvia 100 mg tablet 100 mg PO DAILY levothyroxine 125 mcg capsule 125 mcg PO DAILY pantoprazole 40 mg tablet,delayed release (DR/EC) 40 mg PO DAILY simvastatin 20 mg tablet 20 mg PO DAILY tolterodine 1 mg tablet 1 mg PO BID citalopram 40 mg tablet 40 mg PO DAILY tolterodine [Detrol] 1 mg tablet 1 mg PO BID Januvia 100 mg tablet 100 mg PO DAILY magnesium oxide 400 mg magnesium tablet 400 mg PO DAILY (DME) Prevail Brief Large Misc See Rx Instructions .Route Qty: 64 6RF Rx Instructions: As directed ibuprofen 600 mg tablet 600 mg PO Q6H PRN (Reason: pain) Qty: 60 0RF
--- NOTE | 2024-10-04 01:46 | W.PM.HP.N ---
Date of service: 10/04/24 Time of Service: 01:46 Assessment and Plan Assessment and plan (1) Severe sepsis: Status: Acute Assessment and plan: Positive SIRs- with endometritis source. Treated with Sepsis bundle including 2.5 L crystaliod & Zosyn in ED. (see endometritis below). (2) Altered mental status: Status: Acute Assessment and plan: Acute, from severe sepsis- greatly improved in ED with Sepsis treatment. (3) Endometritis: Status: Acute Assessment and plan: Evidenced on CT A/P. Neg Chest CT. Associated with endometrial CA. Zosyn & IVF (see also severe sepsis above). (4) Serous carcinoma of body of uterus: Status: Acute Assessment and plan: Prior dx by biopsy. (5) Diplegic cerebral palsy: Assessment and plan: Complicates care. History of Present Illness Narrative: 73 yo wf with a PMH that includes diplegia cerebral palsy, panic disorder, DM, HTN, HLD, Hepatic steatosis, psoriasis, GERD presents with chief complaint of altered mental status. Patient noted by son to have altered mental status, so he brought her to the emergency room. This is associated with fever and chills and generally not feeling right, that was first noted upon awakening this morning, and has been progressive throughout the day. She reports associated lower abdominal pain. Son notes that this is an acute change from her baseline, and seems very confused today. Denies any known trauma, head injury, loss of consciousness. No known vomiting. Denies chest pain, shortness of breath, URI symptoms. Workup in emergency room revealed CT of the chest abdomen pelvis showing findings consistent with serous carcinoma of the body of the uterus, acute endometritis with a thickened endometrial stripe associated with inflammation and air, and severe sepsis. Again the lower abdomin was tender to palpation. She was found to have an white blood cell count of 13.9 and a lactate of over 4. Negative UA. Blood pressure 100/74 with a pulse in the 140s. After 2.5 L of crystalloid, patient's systolic blood pressure increased to 140, and her pulse dropped to the 80s, and she was noted to be feeling better. Attempts were made to transfer the patient to [facility] and [facility], both of which refused patient's based on no capacity. Patient was started on Zosyn and affirmed her full CODE STATUS wishes. She was recommended for inpatient admission. Negative VRP. Review of Systems Narrative: Review of Systems See also HPI above. Const: Positive for fever, chills. HENT: Negative for acute hearing changes. Eyes: Negative for acute visual disturbance. Resp: Positive for shortness of breath- initially, anxiety-related according to patient. CV: Negative for chest pain. Abd: Positive for abdominal pain. GI: Negative for bowel changes. : Negative for changes in urination. MSK: Positive for chronic, unchanged focal weakness (cerebral palsy). Skin: Negative for rash. Neuro: Negative for numbness. Heme: Negative for leg edema. PFSH All Active Problems Severe sepsis (Acute) Altered mental status (Acute) Endometritis (Acute) Serous carcinoma of body of uterus (Acute) Endometrial cancer determined by uterine biopsy (Acute) Postmenopausal bleeding (Acute) thickened endometrium Endo bx 09/07/24 Medical History Psoriasis Vitamin D deficiency Anemia Steatosis of liver Hypomagnesemia Panic disorder Urinary incontinence Diplegic cerebral palsy GERD (gastroesophageal reflux disease) Hypothyroidism Hyperlipidemia Diabetes Hypertension Surgical History History of cholecystectomy Social History Smoking/Tobacco Use Status: Never Smoking risk assessment performed?: Yes Alcohol Intake: former Substance use type: does not use Female Reproductive History Menstrual Age of Menarche: 8 History History Para 8 Hx # Term Pregnancies Multiple births Hx # Pregnancies Ectopic pregnancies AB induced Hx Number of Living Children AB spontaneous Meds Allergies and Home Medications Allergies Allergy/AdvReac Type Severity Reaction Status Date / Time sulfamethoxazole (From Allergy Hives Verified 10/03/24 18:19 Bactrim) trimethoprim (From Bactrim) Allergy Hives Verified 10/03/24 18:19 Home Medications ?Medication ?Instructions ?Recorded ?Confirmed ?Type aspirin 81 mg tablet,delayed 81 mg PO DAILY 09/07/24 10/03/24 History release (Adult Aspirin Regimen) citalopram 40 mg tablet 40 mg PO DAILY 09/07/24 10/03/24 History glipizide 10 mg tablet 10 mg PO DAILY 09/07/24 10/03/24 History levothyroxine 125 mcg capsule 125 mcg PO DAILY 09/07/24 10/03/24 History lisinopril 5 mg tablet 20 mg PO DAILY 09/07/24 10/03/24 History magnesium oxide 400 mg PO DAILY 09/07/24 10/03/24 History pantoprazole 40 mg tablet,delayed 40 mg PO DAILY 09/07/24 10/03/24 History release simvastatin 20 mg tablet 20 mg PO DAILY 09/07/24 10/03/24 History sitagliptin phosphate 100 mg 100 mg PO DAILY 09/07/24 10/03/24 History tablet (Januvia) sitagliptin phosphate 100 mg 100 mg PO DAILY 09/07/24 10/03/24 History tablet (Januvia) tolterodine 1 mg tablet 1 mg PO BID 09/07/24 10/03/24 History tolterodine 1 mg tablet (Detrol) 1 mg PO BID 09/07/24 10/03/24 History diaper,brief,adult,disposable #64 ea 09/30/24 10/04/24 Rx (Prevail Brief Large) ibuprofen 600 mg tablet 600 mg PO Q6H PRN pain #60 tabs 09/30/24 10/03/24 Rx Exam Narrative Exam Narrative: Constitutional: NAD. Head/Face: NCAT. Eyes: PERRL. Nl appearing eyes. ENT: Nl appearing external ears, nose, and oropharynx. No exudates. Mallampati 4. Neck: Supple, non-tender to palpation. No obvious mass. Chest: Chest wall non-tender to palpation. Resp: CTAB. Equal BS. No wheezes, rhonchi, crackles, rales. CV: RRR. No rubs, or gallops. Abd/GI: Soft, mild supra-pubic tenderness. No rebound, guarding, rigidity. No organomegaly or masses palpated. Back/: No spinal tenderness. No CVA tenderness. Skin: Warm & dry. No clinically significant rash noted on exposed skin. MSK/Ext: GUDINO. Non-tender. 4/5 motor in LE ext bilaterally. Heme/Lymph: No leg edema. Neuro: A&O. Nl speech. Sensory grossly intact. Capacity intact. Appropriate judgment. Psych: Appropriate mood, manner, and affect. SIRS Screen: Positive SIRS Criteria (at least 2 of the following): Temp (+ mode) (>101 (38.3), <96.8 (36))- Positive Pulse (>90/min)- Positive (or) Resp (>20/min)- Negative (or) WBC (>12K, <4K) or Bandemia (>10%)- Positive Source of Infection?: Yes- uterus. Antibiotics Indicated?: Yes- Zosyn. Results Imaging Abdomen CT scan report/results: report reviewed Labs 10/03/24 18:25 10/03/24 18:25 Labs: Laboratory Results - last 24 hr 10/03/24 10/03/24 10/03/24 18: 18:46 22:45 WBC 13.99 H RBC 4.27 Hgb 11.5 Hct 37.2 MCV 87 MCH 26.9 L MCHC 30.9 L RDW 14.4 Plt Count 347 MPV 8.9 Immature Gran % 0.7 Neutrophils % 84.1 Lymphocytes % 11.4 Monocytes % 2.7 Eosinophils % 0.6 Basophils % 0.5 Nucleated RBC % 0.0 Absolute Neutrophils 11.77 H Absolute Lymphocytes 1.59 Absolute Monocytes 0.38 Absolute Eosinophils 0.08 Absolute Basophils 0.07 VBG Lactate 4.6 H* 1.7 Sodium 138 Potassium 4.3 Chloride 100 Carbon Dioxide 23.0 Anion Gap 15.0 H BUN 12 Creatinine 1.0 Est GFR (CKD-EPI 2020) 60.23 Glucose 298 H Calcium 9.6 Magnesium 1.3 L Total Bilirubin 0.32 AST 25 ALT 39 Alkaline Phosphatase 179 H Total Protein 8.2 Albumin 3.3 L Lipase 25 Urine Color Yellow Urine Clarity Clear Urine pH 5.5 Ur Specific [place] 1.025 Urine Protein >=300 H Urine Ketones Negative Urine Blood Large H Urine Nitrite Negative Urine Bilirubin Negative Urine Urobilinogen 0.2 Ur Leukocyte Esterase Negative Urine RBC 20-50 H Urine WBC 3-5 Ur Epithelial Cells Moderate Urine Crystals Negative Urine Bacteria Negative Urine Mucus Negative Ur Culture Indicated? No Urine Glucose 500 H COVID-19 Source NASOPHARYNX SARS-CoV-2 (PCR) Negative Influenza Type A (PCR) Negative Influenza Type B (PCR) Negative RSV (PCR) Negative Last Vital Signs Temp 39.5 C H 10/03/24 21:28 Pulse 98 H 10/04/24 01:31 Resp 14 02/24/25 01:31 BP 150/68 H 10/04/24 01:30 Pulse Ox 96 10/04/24 01:31 Time Spent Time spent with Patient: >75 minutes Time was spent: preparing to see the patient(eg.review tests), obtaining and/or reviewing separately otained hiistory, ordering medications,tests, procedures, referring, communicating with other health career professional, indepentently interpreting results, counseling the patient, care coordination and other
--- NOTE | 2024-10-04 04:31 | W.PC.ACHO ---
Registration Status: Primary Language: Preferred Language: ED Information & Data Chief Complaint RespSymp 10/03/24 21:28 Chief Complaint RespSymp 10/03/24 18:13 Triage Note started today shaking chills 10/03/24 18:13 , vomited, cough, hurts when voiding, temp at home, heavy bleeding HX ovarian CA with vag bleeding Medical / Surgical History (Last Reviewed 10/03/24 @ 19:33 by Sebastien Hensley MD) Psoriasis Vitamin D deficiency Anemia Steatosis of liver Hypomagnesemia Panic disorder Urinary incontinence Diplegic cerebral palsy GERD (gastroesophageal reflux disease) Hypothyroidism Hyperlipidemia Diabetes Hypertension Most Recent Vital Signs Temperature 39.5 C H 10/03/24 21:28 Temperature Source Temporal Artery Scan 10/03/24 18:13 Pulse 82 10/04/24 02:30 Pulse 85 10/04/24 02:01 Respiratory Rate 20 10/04/24 02:30 Respiratory Effort Normal, Non-Labored 10/03/24 21:28 Blood Pressure 141/66 H 10/04/24 02:30 Blood Pressure Mean 71 10/04/24 02:01 Pulse Oximetry 96 10/04/24 02:30 Oxygen Delivery Method Nasal Cannula 10/04/24 02:30 Oxygen Flow Rate 2 10/04/24 02:30 Comment 2lpm nc 10/04/24 01:31 Allergies sulfamethoxazole (From Bactrim) Allergy (Verified 10/03/24 18:19) Hives trimethoprim (From Bactrim) Allergy (Verified 10/03/24 18:19) Hives Precautions Isolation PUI 10/03/24 21:28 Active Medications Generic Name Dose Route Start Last Admin Trade Name Stuartq PRN Reason Stop Dose Admin Iohexol 100 ml 10/03/24 21:00 10/03/24 20:59 Omnipaque 350 Mg/Ml 100 Ml Btl IJ 11/02/24 23:59 100 ml DIRECTED DARLING Administration Sodium Chloride 50 ml 10/03/24 21:00 10/03/24 20:59 Normal Saline - Diluent 50 Ml Vial IJ 50 ml .FOR DI USE DARLING Administration IV IV Catheter Type [Right Upper Saline Lock arm] IV Catheter Type [Left Peripheral IV Antecubital] IV Catheter Type [Right Peripheral IV Antecubital] IV Catheter Gauge [Right Upper 14 arm] IV Catheter Gauge [Left 18 Antecubital] IV Catheter Gauge [Right 18 Antecubital] Diagnostics 10/03/24 10/03/24 10/03/24 Range/Units 22:45 18:46 18:25 WBC 13.99 H (4.4-10.8) 10^3/uL RBC 4.27 (3.93-5.22) 10^6/uL Hgb 11.5 (11.2-15.7) g/dL Hct 37.2 (36.0-46.0) % MCV 87 (80-95) fL MCH 26.9 L (27.0-33.0) pg MCHC 30.9 L (32.0-36.0) % RDW 14.4 (11.7-14.6) % Plt Count 347 (130-400) 10^3/uL MPV 8.9 (8.0-11.0) fL Immature Gran % 0.7 % Neutrophils % 84.1 % Lymphocytes % 11.4 % Monocytes % 2.7 % Eosinophils % 0.6 % Basophils % 0.5 % Nucleated RBC % 0.0 (0.0-0.3) % Absolute Neutrophils 11.77 H (1.2-6.7) 10^3/uL Absolute Lymphocytes 1.59 (1.2-3.4) 10^3/uL Absolute Monocytes 0.38 (0.1-0.8) 10^3/uL Absolute Eosinophils 0.08 (0.0-0.7) 10^3/uL Absolute Basophils 0.07 (0.0-0.2) 10^3/uL VBG Lactate 1.7 4.6 H* (<or=2.0) mmol/L Sodium 138 (136-145) mmol/L Potassium 4.3 (3.5-5.1) mmol/L Chloride 100 (98-107) mmol/L Carbon Dioxide 23.0 (21.0-32.0) mmol/L Anion Gap 15.0 H (3-11) mmol/L BUN 12 (7-18) mg/dL Creatinine 1.0 (0.55-1.02) mg/dL Est GFR (CKD-EPI 2020) 60.23 (mL/min/1.73m2) Glucose 298 H (74-106) mg/dL Calcium 9.6 (8.5-10.1) mg/dL Magnesium 1.3 L (1.8-2.4) mg/dL Total Bilirubin 0.32 (0.2-1.0) mg/dL AST 25 (15-37) U/L ALT 39 (14-59) U/L Alkaline Phosphatase 179 H (46-116) U/L Total Protein 8.2 (6.4-8.2) g/dL Albumin 3.3 L (3.4-5.0) g/dL Lipase 25 (<78) U/L Urine Color Yellow (Yellow) Urine Clarity Clear (Clear) Urine pH 5.5 (5-8) Ur Specific [place] 1.025 (1.005-1.025) Urine Protein >=300 H (Neg-Trace) mg/dL Urine Ketones Negative (Negative) mg/dL Urine Blood Large H (Negative) Urine Nitrite Negative (Negative) Urine Bilirubin Negative (Negative) Urine Urobilinogen 0.2 (Up to 0.2) mg/dL Ur Leukocyte Esterase Negative (Negative) Urine RBC 20-50 H (0-2) HPF Urine WBC 3-5 (0-5) HPF Ur Epithelial Cells Moderate (Negative) HPF Urine Crystals Negative (Negative) HPF Urine Bacteria Negative (Negative) HPF Urine Mucus Negative (Negative) Ur Culture Indicated? No Urine Glucose 500 H (Negative) mg/dL COVID-19 Source NASOPHARYNX SARS-CoV-2 (PCR) Negative (Negative) Influenza Type A (PCR) Negative (Negative) Influenza Type B (PCR) Negative (Negative) RSV (PCR) Negative (Negative) 10/03/24 18:27 Blood Culture - Pending Blood 10/03/24 18:25 Blood Culture - Pending Blood Intake and Output - 24 Hour Total 10/03/24 17:57 thru 10/03/24 22:20 Intake Total 2670 Balance 2670 Weight 95.6 kg Intake: IV 2670 Falls Risk Assessment History of Falls Previous History 10/03/24 21:28 Contributing Factors Confusion,Unstable 10/03/24 21:28 Ambulatory Aids Uses ambulatory device + 10/03/24 21:28 Tubes/Lines With any additional score 10/03/24 21:28 Gait Evaluation W/any additional score 10/03/24 21:28 Cognition Cognitive impairment 10/03/24 21:28 Fall Total Score 106 10/03/24 21:28 Level of Risk Maximum Risk 10/03/24 21:28 Problems (Last Reviewed 10/03/24 @ 19:33 by Sebastien Hensley MD) Severe sepsis (Acute) Altered mental status (Acute) Endometritis (Acute) Serous carcinoma of body of uterus (Acute) v v v v v v v v v Sending and/or Receiving Nurses: Please use comment section below to note any information pertinent to the patient hand-off not included above. Information / Comments: Report received from: William Murguia x 4, who came in the ER from home. she lives at home with her son and nephew with tod dennis patient. came in to the er w/ c/o fever, A[place], [place]. [place] 27653 ml, zosyn.patient is able to Lactic is improving from10/02. offered fluids and drinks. call jonas within reach.
[2024-10-04] MEDS: Levothyroxine 25 MCG TAB PO (05:56)
[2024-10-04] MEDS: Levothyroxine 100 MCG TAB PO (05:57)
--- NOTE | 2024-10-04 09:36 | INITIAL_ITS ---
Date of service: 10/04/24 Time of Service: 09:36 Care Management Initial Assmt Initial Assessment Reason for Hospitalization: severe sepsis Functional Status/Living Situation Patient Presentation: Stephanie was lying in bed when CM met with her. She had been dozing but woke up to the sound of her name. Initially she stated she was really tired and had spent most of the morning asleep. As the conversation progressed however, she engaged well and was more alert and talkative. Stephanie was admitted with sever sepsis. She recently had an endometrial biopsy which showed she has endometrial cancer. On imaging she was found to have endometritis which is likely the cause of her sepsis. Her WBC is 13.99, her lactate is 4.6 and she had a fever of 39.5 last evening. Stephanie is now receiving IV antibiotics (Zosyn) and has been afebrile today. She lives in a mobile home in [place] with her son Gee and her nephew Skylar. She has 8 children in all, but is only close to 2 of her sons, Gee and Hamzah. She is essentially estranged from the rest and does not even know where some of them are living. Stephanie has cerebral palsy and has been disabled since the age of 16. She can stand and pivot to her chair but is mostly wheelchair bound. She has an essential person who provides services daily. The amount of time he spends is dependent on what Stephanie needs for the day. He helps with harness preparer, such as dishes and laundry and is usually there for 6-8 hours a day. Stephanie has a wheelchair, crutches, a commode and a shower chair. She relies on friends and family for transportation. Stephanie commented to that she would like to change her Healthcare Agent. She currently has Gee designated as her HCA but would like to change it to Hamzah. She shared that she feels he would be better able to honor her healthcare wishes. Town of Residence: [place] Resides with: Child (son Gee and nephew Skylar) Significant Other/Family: Local Natural Supports: sons Hamzah and Gee Employment Status: Disabled Instrumental Activities of Daily Living (ADLs): Requires support Medications Medication Management: No Issues/Barriers identified Physical Functioning/Mobility Assistive Device: w/c, crutches, commode, shower chair Advance Directives Advance Directives: Do you have an Advance Directive: Y 02/12/13 11:16 AD On File at [facility]: Y 11/03/12 17:42 Date Asked 09/03/24 10/04/24 07:41 AD Date Reviewed 10/04/24 10/04/24 02:16 COLST On File at [facility] COLST Date Scanned Code Status Resuscitation Status Full Code Portal Pt does not currently have a portal and education provided: Yes Insurance Coverage/Financial Issues Insurance: Medicare Part B Medicaid Care Team Visit Care Team Role Provider Type Janina Cobos NP MD [facility] STAFF PHYSICIAN Kiak Norman Primary Care Provider NON-[facility] STAFF PHYSICIAN Sebastien Hensley MD Emergency Provider [facility] STAFF PHYSICIAN Bull Avila MD Admit Provider [facility] STAFF PHYSICIAN Attending Provider Discharge Potential Discharge Needs: PCP F/U Appt Anticipated Barriers to Discharge: None Identified Patient/Family Education Needs: Review discharge instructions, discuss Ask Me Three Transportation: Private vehicle Plan: Anticipate Stephanie will be discharged home with no new services when medically stable. Her essential person will resume services upon her discharge.She will follow up with her PCP and plan of care and transport with family. CM will follow and continue to assess for discharge concerns. Social Determinants of Health Screening Social Determinants of Health last assessed: 10/04/24 Will the Patient Participate in the Screening?: Yes Do you worry about having a steady place to live?: no Problems where you live: no known problems In the past 12 months, have you had to go without electric, gas, oil or water in your home?: no Have you or anyone in your house had to go without enough food to eat?: no Has lack of transportation kept you from medical appointments or from doing things needed for daily living?: no Has anyone in your life made you feel unsafe or unsupported?: no How hard is it for you to pay for the very basics like food, housing, medical care, and heating? 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) Endometrial cancer determined by uterine biopsy (Acute) Postmenopausal bleeding (Acute) thickened endometrium Endo bx 09/07/24 Medical History Psoriasis Vitamin D deficiency Anemia Steatosis of liver Hypomagnesemia Panic disorder Urinary incontinence Diplegic cerebral palsy GERD (gastroesophageal reflux disease) Hypothyroidism Hyperlipidemia Diabetes Hypertension Surgical History History of cholecystectomy Social History Smoking/Tobacco Use Status: Never Smoking risk assessment performed?: Yes Alcohol Intake: former Substance use type: does not use Housing: other Female Reproductive History Menstrual Age of Menarche: 8 History History Para 8 Hx # Term Pregnancies Multiple births Hx # Pregnancies Ectopic pregnancies AB induced Hx Number of Living Children AB spontaneous
[2024-10-04] MEDS: Lisinopril 5 MG TAB 20 MG PO (10:42)
[2024-10-04] MEDS: SITagliptin 100 MG TAB PO (10:43)
[2024-10-04] MEDS: glipiZIDE 10 MG TAB PO (10:43)
[2024-10-04] MEDS: Simvastatin 20 MG TAB PO (10:44)
[2024-10-04] MEDS: Magnesium Oxide 400 MG TAB PO (10:44)
[2024-10-04] MEDS: Citalopram 20 MG TAB 40 MG PO (10:44)
[2024-10-04] MEDS: Normal Saline Flush 10 ML SYR IVP ×2 (10:45→20:28)
[2024-10-04] MEDS: PIPERACILLIN/TAZO 4.5 GM in Normal Saline 100 ML IVPB ×2 (12:06→18:35)
[2024-10-04] MEDS: Insulin Aspart 300 UNITS/3 ML PEN SC ×2 (12:33→20:51)
--- NOTE | 2024-10-04 16:03 | OBCE_ITS ---
Date of service: 10/04/24 Time of Service: 15:30 Assessment and Plan Assessment and plan (1) Serous carcinoma of body of uterus: Status: Acute Assessment and plan: Spoke to box worker/onc at [facility] and arranged for pt to have an appt Thurs at 1pm. She insists her son can bring her and she does not need transportation there. (2) Postmenopausal bleeding: Status: Acute Assessment and plan: Bleeding is not too heavy right now. Had nausea with aygestin in the past. If heavier bleeding can consider trying norethindrone. Please feel free to reach out with further questions. (3) Severe sepsis: Status: Acute Assessment and plan: Pt seems to be doing better today, afebrile with wbc down a tad, lactate back to normal. On IV zosyn. Continue plan per the medicine team who are also managing her other comorbidities such as DM. History of Present Illness History of Present Illness Chief Complaint: Endometrial cancer Narrative: Stephanie was admitted to the hospitalist service through the ED last night. Sales Planning Coordinator was consulted because she has biopsy confirmed endometrial cancer and suspected endometritis as a source of sepsis. She was brought to the ED due to altered mental status. Last night she was febrile but has been afebrile today. She is having some vaginal bleeding but nothing very heavy. She reports only mild abdominal pain today but better then it was. She denies having blood in her stool anymore - she thinks it was just one day when she ate too much licorice. It is uncertain how long she has been bleeding for but she was first referred to box worker from [facility] in June, no showed 2 appts with box worker and then when she was finally seen, had an endometrial biopsy that confirmed serous carcinoma. She was unable to make her box worker/onc appt about 2wks ago due to transportation issues. She has been difficult to reach from our office but we finally spoke with her last week and assured her that we can get her transportation if that is an issue again. She insists that her son can bring her to an appt. She did not yet call to reschedule her appt. Last week she was having more significant abdominal cramping but that seems to have improved. Several weeks ago she talked to Dr. Wheat about her bleeding and cramping and was started on aygesting. However, she felt nauseous with it and so she stopped. She says she is not bleeding that much, sometimes just dark discharge. Today she is feeling much better then when she came in. No fever/chills. 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) Postmenopausal bleeding (Acute) thickened endometrium Endo bx 09/07/24 Medical History (Updated 10/04/24 @ 17:20 by Doris Mcbride MD) Psoriasis Vitamin D deficiency Anemia Steatosis of liver Hypomagnesemia Panic disorder Urinary incontinence Diplegic cerebral palsy GERD (gastroesophageal reflux disease) Hypothyroidism Hyperlipidemia Diabetes Hypertension Surgical History History of cholecystectomy Social History Smoking/Tobacco Use Status: Never Smoking risk assessment performed?: Yes Alcohol Intake: former Substance use type: does not use Housing: other Female Reproductive History Menstrual Age of Menarche: 8 History History 2 Para 8 Hx # Term Pregnancies Multiple births Hx # Pregnancies Ectopic pregnancies AB induced Hx Number of Living Children AB spontaneous Exam Narrative Exam Narrative: Pt sitting up in chair by the bed Const General: cooperative, healthy appearing and no acute distress HENMT Head: normocephalic and atraumatic Ears: hearing grossly normal bilaterally Resp Effort & Inspection: normal respiratory effort and able to speak in complete sentences Neuro General: patient alert and patient awake Psych Appearance: grossly normal Mental Status: mental status grossly normal Speech and Movement: speech and movement normal Affect: normal affect Attitude: cooperative Thought Process: normal Thought Content: normal Results Last Vital Signs Temp 98.2 F 10/04/24 15:17 Pulse 97 H 10/04/24 15:17 Resp 17 10/04/24 15:17 BP 139/72 10/04/24 15:17 Pulse Ox 95 10/04/24 15:17 Labs 10/03/24 18:25 10/03/24 18:25 Labs: Laboratory Results - last 24 hr 10/03/24 10/03/24 10/03/24 18:25 18:46 22:45 WBC 13.99 H RBC 4.27 Hgb 11.5 Hct 37.2 MCV 87 MCH 26.9 L MCHC 30.9 L RDW 14.4 Plt Count 347 MPV 8.9 Immature Gran % 0.7 Neutrophils % 84.1 Lymphocytes % 11.4 Monocytes % 2.7 Eosinophils % 0.6 Basophils % 0.5 Nucleated RBC % 0.0 Absolute Neutrophils 11.77 H Absolute Lymphocytes 1.59 Absolute Monocytes 0.38 Absolute Eosinophils 0.08 Absolute Basophils 0.07 VBG Lactate 4.6 H* 1.7 Sodium 138 Potassium 4.3 Chloride 100 Carbon Dioxide 23.0 Anion Gap 15.0 H BUN 12 Creatinine 1.0 Est GFR (CKD-EPI 2020) 60.23 Glucose 298 H Calcium 9.6 Magnesium 1.3 L Total Bilirubin 0.32 AST 25 ALT 39 Alkaline Phosphatase 179 H Total Protein 8.2 Albumin 3.3 L Lipase 25 Urine Color Yellow Urine Clarity Clear Urine pH 5.5 Ur Specific [place] 1.025 Urine Protein >=300 H Urine Ketones Negative Urine Blood Large H Urine Nitrite Negative Urine Bilirubin Negative Urine Urobilinogen 0.2 Ur Leukocyte Esterase Negative Urine RBC 20-50 H Urine WBC 3-5 Ur Epithelial Cells Moderate Urine Crystals Negative Urine Bacteria Negative Urine Mucus Negative Ur Culture Indicated? No Urine Glucose 500 H COVID-19 Source NASOPHARYNX SARS-CoV-2 (PCR) Negative Influenza Type A (PCR) Negative Influenza Type B (PCR) Negative RSV (PCR) Negative
[2024-10-04 16:20] LABS: Abs Immature Grans 0.07 10^3/uL (0.0-0.06); Absolute Basophil Count 0.05 10^3/uL (0.0-0.2); Absolute Eosinophil Count 0.09 10^3/uL (0.0-0.7); Absolute Lymphocyte Count 2.09 10^3/uL (1.2-3.4); Absolute Monocyte Count 1.09 10^3/uL (0.1-0.8); Basophils % 0.4 %; Eosinophils % 0.7 %; HGB 10.8 g/dL (11.2-15.7); Immature Grans % 0.6 %; Lymphocytes % 16.5 %; MCH 26.9 pg (27.0-33.0); MCHC 30.9 % (32.0-36.0); MCV 87 fL (80-95); Monocytes % 8.6 %; Neutrophils % 73.2 %; Platelet Count 291 10^3/uL (130-400); RBC 4.02 10^6/uL (3.93-5.22); RDW 14.6 % (11.7-14.6); RDW-SD 47.1 fL; WBC 12.69 10^3/uL (4.4-10.8)
[2024-10-04 16:34] LABS: Absolute Neutrophil Count 9.29 10^3/uL (1.2-6.7)
[2024-10-04 16:55] LABS: C-Reactive Protein 17.82 mg/dL (<or=0.5); Magnesium 1.7 mg/dL (1.8-2.4)
[2024-10-04 16:57] LABS: ALT 36 U/L (14-59); AST 23 U/L (15-37); Albumin 2.8 g/dL (3.4-5.0); Alkaline Phosphatase 142 U/L (46-116); BUN 14 mg/dL (7-18); Bilirubin, Total 0.25 mg/dL (0.2-1.0); CREATININE 0.7 mg/dL (0.55-1.02); Calcium 9.6 mg/dL (8.5-10.1); Chloride 104 mmol/L (98-107); Estimated GFR 92.41 (mL/min/1.73m2); Glucose 130 mg/dL (74-106); Sodium 139 mmol/L (136-145); Total Protein 7.4 g/dL (6.4-8.2)
--- NOTE | 2024-10-04 19:53 | PGE_ITS ---
Date of Service Date of service: 10/04/24 Time of Service: 19:53 Assessment and Plan Assessment and plan (1) Serous carcinoma of body of uterus: Status: Acute Assessment and plan: Consulted waiter/waitress tavern here - they spoke with [facility] and arranged for pt to have an appt at 1pm. She insists her son can bring her and she does not need transportation there. bleeding duration is uncertain, but she was first referred to head concierge in June, missed two appointments, and was later diagnosed with serous carcinoma via biopsy. She missed a head concierge/onc appointment two weeks ago due to transportation issues but assures us her son can assist with future visits. She has not yet rescheduled the appointment. (2) Postmenopausal bleeding: Status: Acute Assessment and plan: Bleeding is currently not too heavy. The patient experienced nausea with aygestin in the past and discontinued it. If bleeding increases, norethindrone can be considered. Please contact waiter/waitress tavern for further guidance. (3) Severe sepsis: Status: Acute Assessment and plan: The patient appears improved today, afebrile with a slight decrease in WBC and lactate levels returning to normal. She is on IV Zosyn. Discussed with Dr Mcbride ([facility]) Discussed with Dr Orr Subjective Subjective Patient reports: no new complaints, tolerating liquids well, tolerating a regular diet, voiding w/o difficulty, bowel movement and afebrile; denies diarrhea, nausea, vomiting or shortness of breath Interval history since last seen: awake, alert, pleasant. Seen in consult by [employer] - they spoke with tar pot man/onc at [facility] and arranged for pt to have an appt 10/07 at 1pm. She insists her son can bring her and she does not need transportation there. Patient reports feeling better today. She has not had fever and labs are improving. Exam Narrative Exam Narrative: * General: Elderly female of stated age, no acute distress. * Head: Atraumatic. * Eyes: Non-icteric, non-injected. * Oral Mucosa: Moist. * Neck: Supple, full range of motion, no jugular venous distention . * Respiratory: Even and unlabored respirations, no wheezing no rales * Cardiovascular: Regular rate and rhythm. * Abdomen: Benign. * Extremities: No edema, moves all extremities. * Neurologic: Awake, alert, oriented, no focal deficits. * Psychiatric: Appropriate mood and affect. * Skin: No rashes or lesions. Objective Last Vital Signs Temp 36.1 C L 10/04/24 19:45 Pulse 87 10/04/24 19:45 Resp 17 10/04/24 19:45 BP 132/72 10/04/24 19:45 Pulse Ox 95 10/04/24 19:45 Laboratory Results - last 24 hr 10/03/24 10/04/24 22:45 16:12 WBC 12.69 H RBC 4.02 Hgb 10.8 L Hct 35.0 L MCV 87 MCH 26.9 L MCHC 30.9 L RDW 14.6 Plt Count 291 MPV 9.0 Immature Gran % 0.6 Neutrophils % 73.2 Lymphocytes % 16.5 Monocytes % 8.6 Eosinophils % 0.7 Basophils % 0.4 Nucleated RBC % 0.0 Absolute Neutrophils 9.29 H Absolute Lymphocytes 2.09 Absolute Monocytes 1.09 H Absolute Eosinophils 0.09 Absolute Basophils 0.05 VBG Lactate 1.7 Sodium 139 Potassium 4.0 Chloride 104 Carbon Dioxide 27.0 Anion Gap 8.0 BUN 14 Creatinine 0.7 Est GFR (CKD-EPI 2020) 92.41 Glucose 130 H Calcium 9.6 Magnesium 1.7 L Total Bilirubin 0.25 AST 23 ALT 36 Alkaline Phosphatase 142 H C-Reactive Protein 17.82 H Total Protein 7.4 Albumin 2.8 L Time Spent with Patient Time Spent with Patient: 25-34 minutes Time was spent: preparing to see the patient(eg.review tests), ordering medications,tests, procedures, referring, communicating with other health critical care unit manager, indepentently interpreting results, counseling the patient and care coordination
[2024-10-04] MEDS: Calcium Carbonate *TUMS* 500 MG CHEW 1000 MG PO (20:26)
[2024-10-04] MEDS: MAGNESIUM SULFATE 1 GM/100 ML BAG IV_INF (20:27)
[2024-10-05] MEDS: Acetaminophen 325 MG TAB 650 MG PO ×3 (00:23→17:37)
[2024-10-05] MEDS: PIPERACILLIN/TAZO 4.5 GM in Normal Saline 100 ML IVPB ×4 (00:37→18:11)
[2024-10-05 04:00] VITALS: BP 142/91; PULSE 73; RESP 19; TEMP 35.5; O2SAT 97
[2024-10-05] MEDS: Levothyroxine 25 MCG TAB PO (06:13)
[2024-10-05] MEDS: Levothyroxine 100 MCG TAB PO (06:13)
[2024-10-05 07:05] LABS: Abs Immature Grans 0.08 10^3/uL (0.0-0.06); Absolute Basophil Count 0.05 10^3/uL (0.0-0.2); Absolute Eosinophil Count 0.22 10^3/uL (0.0-0.7); Absolute Lymphocyte Count 3.76 10^3/uL (1.2-3.4); Absolute Monocyte Count 1.12 10^3/uL (0.1-0.8); Absolute Neutrophil Count 7.11 10^3/uL (1.2-6.7); Basophils % 0.4 %; Eosinophils % 1.8 %; HCT 32.7 % (36.0-46.0); HGB 10.2 g/dL (11.2-15.7); Immature Grans % 0.6 %; Lymphocytes % 30.5 %; MCH 27.1 pg (27.0-33.0); MCHC 31.2 % (32.0-36.0); MCV 87 fL (80-95); MPV 9.4 fL (8.0-11.0); Monocytes % 9.1 %; Neutrophils % 57.6 %; Platelet Count 316 10^3/uL (130-400); RBC 3.77 10^6/uL (3.93-5.22); RDW 14.7 % (11.7-14.6); RDW-SD 47.4 fL; WBC 12.34 10^3/uL (4.4-10.8)
[2024-10-05 07:21] LABS: Anion Gap 6.7 mmol/L (3-11); BUN 14 mg/dL (7-18); C-Reactive Protein 12.69 mg/dL (<or=0.5); CO2 27.3 mmol/L (21.0-32.0); CREATININE 0.8 mg/dL (0.55-1.02); Calcium 9.4 mg/dL (8.5-10.1); Chloride 106 mmol/L (98-107); Estimated GFR 78.72 (mL/min/1.73m2); Glucose 177 mg/dL (74-106); Magnesium 1.9 mg/dL (1.8-2.4); Sodium 140 mmol/L (136-145)
[2024-10-05 07:55] VITALS: BP 124/78; PULSE 83; RESP 18; TEMP 37; O2SAT 94
[2024-10-05] MEDS: Insulin Aspart 300 UNITS/3 ML PEN SC ×4 (09:00→22:06)
[2024-10-05] MEDS: SITagliptin 100 MG TAB PO (09:01)
[2024-10-05] MEDS: Lisinopril 5 MG TAB 20 MG PO (09:01)
[2024-10-05] MEDS: glipiZIDE 10 MG TAB PO (09:01)
[2024-10-05] MEDS: Normal Saline Flush 10 ML SYR IVP ×2 (09:01→19:12)
[2024-10-05] MEDS: Citalopram 20 MG TAB 40 MG PO (09:02)
[2024-10-05] MEDS: Simvastatin 20 MG TAB PO (09:02)
[2024-10-05] MEDS: Pantoprazole 40 MG TABCR PO (09:02)
[2024-10-05] MEDS: Magnesium Oxide 400 MG TAB PO (09:03)
[2024-10-05 11:51] VITALS: BP 130/68; PULSE 68; RESP 20; TEMP 36.6; O2SAT 95
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
[2024-10-05 14:49] VITALS: BP 145/56; PULSE 70; RESP 20; TEMP 36.4; O2SAT 96
--- NOTE | 2024-10-05 15:51 | CHAPLAIN ---
I had a brief visit with Stephanie, who was sitting up in the chair when I visited. She started to tell me about her recent diagnosis when her physician from [facility] arrived. I will plan to visit again tomorrow.
--- NOTE | 2024-10-05 16:39 | W.PM.PROGNOT ---
Date of Service Date of service: 10/05/24 Time of Service: 16:39 Assessment and Plan Assessment and plan (1) Serous carcinoma of body of uterus: Status: Acute Assessment and plan: Consulted aeronautical engineer here - they spoke with [facility] and arranged for pt to have an appt at 1pm. She insists her son can bring her and she does not need transportation there. Seen by NURSES SUPERVISOR again today - see their note (2) Postmenopausal bleeding: Status: Acute Assessment and plan: Bleeding is currently not too heavy. The patient experienced nausea with aygestin in the past and discontinued it. If bleeding increases, norethindrone can be considered. Please contact aeronautical engineer for further guidance. (3) Severe sepsis: Status: Acute Assessment and plan: The patient appears improved today, afebrile with a slight decrease in WBC and lactate levels returning to normal. She is on IV Zosyn. BC + gm - rods and gm + cocci - afebrile for 24h+' continue zosyn Discussed with Dr Mcbride ([facility]) Discussed with Dr rOr Subjective Subjective Patient reports: no new complaints, voiding w/o difficulty, bowel movement and afebrile; denies flatus, diarrhea, nausea, vomiting or shortness of breath Interval history since last seen: Stephanie states she has some cramping that is relieved by tylenol. She continues to state her son will bring her to [facility] on . Objective Last Vital Signs Temp 36.4 C L 10/05/24 14:49 Pulse 70 10/05/24 14:49 Resp 20 10/05/24 14:49 BP 145/56 H 10/05/24 14:49 Pulse Ox 96 10/05/24 14:49 Laboratory Results - last 24 hr 10/04/24 10/05/24 16:12 05:50 WBC 12.34 H RBC 3.77 L Hgb 10.2 L Hct 32.7 L MCV 87 MCH 27.1 MCHC 31.2 L RDW 14.7 H Plt Count 316 MPV 9.4 Immature Gran % 0.6 Neutrophils % 57.6 Lymphocytes % 30.5 Monocytes % 9.1 Eosinophils % 1.8 Basophils % 0.4 Nucleated RBC % 0.0 Absolute Neutrophils 7.11 H Absolute Lymphocytes 3.76 H Absolute Monocytes 1.12 H Absolute Eosinophils 0.22 Absolute Basophils 0.05 Sodium 139 140 Potassium 4.0 4.0 Chloride 104 106 Carbon Dioxide 27.0 27.3 Anion Gap 8.0 6.7 BUN 14 14 Creatinine 0.7 0.8 Est GFR (CKD-EPI 2020) 92.41 78.72 Glucose 130 H 177 H Calcium 9.6 9.4 Magnesium 1.7 L 1.9 Total Bilirubin 0.25 AST 23 ALT 36 Alkaline Phosphatase 142 H C-Reactive Protein 17.82 H 12.69 H Total Protein 7.4 Albumin 2.8 L Time Spent with Patient Time Spent with Patient: 25-34 minutes Time was spent: preparing to see the patient(eg.review tests), ordering medications,tests, procedures, referring, communicating with other health outdoor emergency care technician, indepentently interpreting results, counseling the patient and care coordination
--- NOTE | 2024-10-05 17:01 | CMPROGNOTE_ITS ---
Date of service: 10/05/24 Time of Service: 17:01 Care Management Progress Note Progress Note Text Progress Note Text: Stephanie was sitting in a chair when CM met with her. CM will check in with Stephanie at a later time, as she needed assistance from the CHIEF PORT DIRECTOR. Fortunately, she was able to meet with palliative this afternoon. Per Dr. Encarnacion, pt may want to add an alternate agent to the Adv. Directives she did yesterday. CM will follow and let the CM that assisted with the forms know. Discharge Potential Discharge Needs: PCP F/U Appt Anticipated Barriers to Discharge: None Identified Patient/Family Education Needs: Review discharge instructions, discuss Ask Me Three Transportation: Private vehicle Plan: Anticipate Stephanie will be discharged home with no new services when medically stable. Her essential person will resume services upon her discharge.She will follow up with her PCP and plan of care and transport with family. CM will follow and continue to assess for discharge concerns. Social Determinants of Health Screening Social Determinants of Health last assessed: 10/05/24 Will the Patient Participate in the Screening?: Yes Do you worry about having a steady place to live?: no Problems where you live: no known problems In the past 12 months, have you had to go without electric, gas, oil or water in your home?: no Have you or anyone in your house had to go without enough food to eat?: no Has lack of transportation kept you from medical appointments or from doing things needed for daily living?: no Has anyone in your life made you feel unsafe or unsupported?: no How hard is it for you to pay for the very basics like food, housing, medical care, and heating? Would you say it is:: Not hard at all Do you want help finding or keeping work or a job?: I do not need or want help If for any reason you need help with day-to-day activities such as bathing, preparing meals, shopping, managing finances, etc., do you get the help you need?: I don?t need any help How often do you feel lonely or isolated from those around you?: Never Do you speak a language other than Greenlandic at home?: No Does the patient want assistance with any of the above?: No
--- NOTE | 2024-10-05 17:04 | PGE_ITS ---
Date of Service Date of service: 10/05/24 Time of Service: 13:00 Assessment and Plan Assessment and plan (1) Serous carcinoma of body of uterus: Status: Acute Assessment and plan: Pt's training and quality manager/onc appt moved to Friday at 13:00. She is aware to contact allergy nurse if she needs any assistance with transportation. Bleeding is very minimal at this time. No significant pain. Contact training and quality manager if further consult necessary. (2) Severe sepsis: Status: Acute Assessment and plan: Pt stable. Blood cultures positive but she seems to be responding well to the zosyn, remaining afebrile >24hrs now. Continue management per hospitalist team. Subjective Subjective Interval history since last seen: Pt says she is having less bleeding today then yesterday, mostly darker. Very minimal pain. Feeling ok overall. She says that [facility] called her and had to reschedule her appt to next friday at 1. She insists that she has transportation there. Exam Const General: cooperative, healthy appearing and no acute distress HENMN Head: normocephalic and atraumatic Ears: hearing grossly normal bilaterally Resp Effort & Inspection: normal respiratory effort and able to speak in complete sentences Neuro General: patient alert and patient awake Psych Appearance: grossly normal Mental Status: mental status grossly normal Speech and Movement: speech and movement normal Affect: normal affect Attitude: cooperative Thought Process: normal Thought Content: normal Objective Last Vital Signs Temp 97.5 F L 10/05/24 14:49 Pulse 70 10/05/24 14:49 Resp 20 10/05/24 14:49 BP 145/56 H 10/05/24 14:49 Pulse Ox 96 10/05/24 14:49 Laboratory Results - last 24 hr 10/05/24 05:50 WBC 12.34 H RBC 3.77 L Hgb 10.2 L Hct 32.7 L MCV 87 MCH 27.1 MCHC 31.2 L RDW 14.7 H Plt Count 316 MPV 9.4 Immature Gran % 0.6 Neutrophils % 57.6 Lymphocytes % 30.5 Monocytes % 9.1 Eosinophils % 1.8 Basophils % 0.4 Nucleated RBC % 0.0 Absolute Neutrophils 7.11 H Absolute Lymphocytes 3.76 H Absolute Monocytes 1.12 H Absolute Eosinophils 0.22 Absolute Basophils 0.05 Sodium 140 Potassium 4.0 Chloride 106 Carbon Dioxide 27.3 Anion Gap 6.7 BUN 14 Creatinine 0.8 Est GFR (CKD-EPI 2020) 78.72 Glucose 177 H Calcium 9.4 Magnesium 1.9 C-Reactive Protein 12.69 H Time Spent with Patient Time Spent with Patient: <25 minutes Time was spent: preparing to see the patient(eg.review tests), referring, communicating with other health child caregiver and counseling the patient
[2024-10-05 19:40] VITALS: BP 138/62; PULSE 69; RESP 17; TEMP 36.1; O2SAT 95
[2024-10-05 23:06] VITALS: BP 139/74; PULSE 71; RESP 14; TEMP 36.4; O2SAT 95
[2024-10-06] MEDS: PIPERACILLIN/TAZO 4.5 GM in Normal Saline 100 ML IVPB ×4 (00:30→18:32)
[2024-10-06] MEDS: Melatonin 3 MG TAB 9 MG PO ×2 (02:33→21:52)
[2024-10-06 03:23] VITALS: BP 128/75; PULSE 72; RESP 18; TEMP 36; O2SAT 96
[2024-10-06] MEDS: Levothyroxine 100 MCG TAB PO (06:01)
[2024-10-06] MEDS: Levothyroxine 25 MCG TAB PO (06:01)
[2024-10-06 06:52] VITALS: BP 129/71; PULSE 65; RESP 16; TEMP 35.8; O2SAT 95
[2024-10-06 07:05] LABS: Abs Immature Grans 0.07 10^3/uL (0.0-0.06); Absolute Basophil Count 0.05 10^3/uL (0.0-0.2); Absolute Lymphocyte Count 3.93 10^3/uL (1.2-3.4); Absolute Monocyte Count 0.85 10^3/uL (0.1-0.8); Absolute Neutrophil Count 7.06 10^3/uL (1.2-6.7); Basophils % 0.4 %; HCT 32.5 % (36.0-46.0); HGB 10.2 g/dL (11.2-15.7); Immature Grans % 0.6 %; Lymphocytes % 32.2 %; MCH 26.9 pg (27.0-33.0); MCHC 31.4 % (32.0-36.0); MCV 86 fL (80-95); MPV 9.4 fL (8.0-11.0); Neutrophils % 57.8 %; Platelet Count 325 10^3/uL (130-400); RBC 3.79 10^6/uL (3.93-5.22); RDW 14.6 % (11.7-14.6); WBC 12.21 10^3/uL (4.4-10.8)
[2024-10-06 07:14] LABS: Absolute Eosinophil Count 0.24 10^3/uL (0.0-0.7)
[2024-10-06 07:21] LABS: Anion Gap 10.3 mmol/L (3-11); BUN 16 mg/dL (7-18); CO2 26.7 mmol/L (21.0-32.0); Calcium 9.4 mg/dL (8.5-10.1); Chloride 103 mmol/L (98-107); Estimated GFR 60.23 (mL/min/1.73m2); Glucose 248 mg/dL (74-106); Magnesium 1.6 mg/dL (1.8-2.4); Potassium 3.9 mmol/L (3.5-5.1); Sodium 140 mmol/L (136-145)
[2024-10-06] MEDS: SITagliptin 100 MG TAB PO (08:41)
[2024-10-06] MEDS: Simvastatin 20 MG TAB PO (08:41)
[2024-10-06] MEDS: Lisinopril 5 MG TAB 20 MG PO (08:41)
[2024-10-06] MEDS: Pantoprazole 40 MG TABCR PO (08:41)
[2024-10-06] MEDS: Insulin Aspart 300 UNITS/3 ML PEN SC ×4 (08:41→21:48)
[2024-10-06] MEDS: Magnesium Oxide 400 MG TAB PO (08:41)
[2024-10-06] MEDS: Citalopram 20 MG TAB 40 MG PO (08:42)
[2024-10-06] MEDS: glipiZIDE 10 MG TAB PO (08:42)
[2024-10-06] MEDS: Normal Saline Flush 10 ML SYR IVP ×4 (08:42→18:31)
--- NOTE | 2024-10-06 09:44 | DM INPTCON_ITS ---
Date of service: 10/06/24 Time of Service: 09:45 Diabetes Inpatient Consult Reason for Visit: received consult request re: diabetes mgt/education DESCRIPTION/ASSESSMENT: Pt is a 69yo female who came in after chills,vomiting, cough, temp at home. Admitted and being treated for sever sepsis, bleeding associated with dx of ovarian ca/endometriosis. Ordered for heart health, consistent carb diet with normal consistencies with good reported intake this admission. Weight hx appears fairly stable. Last recorded A1C was 6.6% february 2015. Fasting glucose 248 this morning, 177 yesterday. mealtime capillary glucose jumping around 129 to high 250's. Home diabetes meds include 10mg glipizide daily, sitagliptin 100mg daily. sensitive sliding scale with novolog ordered at meals and 2200 Lytes wnl today with magnesium at 1.6 - she is currently ordered for 400MgO d aily. 10/04 total protein wnl with albumin at 2.8 - more reflective of inflammation than protein status. PT lives at home with someone who cares takes care of most of her needs. INTERVENTION: REcommend curent A1c would recommend vtiamin D lab considering geographical location in winter and pt age and not supplementing or recent labwork. With high fasting glucose would consider adding/titrating insulin glargine starting at 10u HS. PLAN: will monitor weight, po intake, labs/glucose mgt. Time Spent in Nutritional Counseling and Treatment: 5
[2024-10-06] MEDS: MAGNESIUM SULFATE 1 GM/100 ML BAG IV_INF (10:48)
[2024-10-06] MEDS: Acetaminophen 325 MG TAB 650 MG PO ×2 (11:02→20:03)
[2024-10-06 11:31] VITALS: BP 125/73; PULSE 64; RESP 15; TEMP 36.7; O2SAT 97
--- NOTE | 2024-10-06 14:08 | PDOC.CMDIS ---
Date of service: 10/06/24 Time of Service: 14:08 LACE Index Scoring Tool Questions: Length of Stay (in days): 2 Was the patient admitted via the E.D.?: Yes Comorbidities: Diabetes w/o Complication, Any Tumor and Liver or Renal Disease E.D. Visits: 2 Answers: Total Score: 12 Risk of Readmission: High Risk Care Management Discharge Plan Reason for Hospitalization: sepsis Discharge Plan: Stephanie will be discharged home with no new services. Her essential person will resume services upon her discharge. She will follow up with her PCP and plan of care and transport with family. Stephanie is scheduled to have a hysterectomy at [facility] on Friday10/11/24 at 1300. Patient/Family Education Needs: Review discharge instructions, limitations, follow up plan and discuss Ask Me Three Services Needed at Discharge: Homemaking Services SDOH Health Related Social Needs: No Data to Display
[2024-10-06 15:34] VITALS: BP 123/62; PULSE 63; RESP 15; TEMP 36.6; O2SAT 95
--- NOTE | 2024-10-06 19:20 | PDOC.CMPRO ---
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 Her original surgery date was for tomorrow, 10/07/24. She was notified that it has been rescheduled for Friday10/11/24. There was some discussion that she would be able to go home for the weekend but unfortunately she now has positive blood cultures and cannot be discharged until more is known. When colby Nugent met with Stephanie she stated that she really wante to go home., She is disappointed that this cannnote happen at this time. Stephanie continues to have vaginal bleeding, however her H&H remain stable at 10.2/32.5. Discharge Potential Discharge Needs: PCP F/U Appt Anticipated Barriers to Discharge: Medical Status Patient/Family Education Needs: Review discharge instructions, discuss Ask Me Three Transportation: Other (to be determined) Plan: 11/02. Social Determinants of Health Screening Social Determinants of Health last assessed: 10/06/24 Will the Patient Participate in the Screening?: Yes Do you worry about having a steady place to live?: no Problems where you live: no known problems In the past 12 months, have you had to go without electric, gas, oil or water in your home?: no Have you or anyone in your house had to go without enough food to eat?: no Has lack of transportation kept you from medical appointments or from doing things needed for daily living?: no Has anyone in your life made you feel unsafe or unsupported?: no How hard is it for you to pay for the very basics like food, housing, medical care, and heating? Would you say it is:: Not hard at all Do you want help finding or keeping work or a job?: I do not need or want help If for any reason you need help with day-to-day activities such as bathing, preparing meals, shopping, managing finances, etc., do you get the help you need?: I don?t need any help How often do you feel lonely or isolated from those around you?: Never Do you speak a language other than Italian at home?: No Does the patient want assistance with any of the above?: No
[2024-10-06 19:29] VITALS: BP 138/67; PULSE 67; RESP 19; TEMP 36; O2SAT 94
--- NOTE | 2024-10-06 20:24 | PGE_ITS ---
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 She insists her son can bring her and she does not need transportation there. Seen by ANSWERING SERVICE AGENT again today - see their note (3) Postmenopausal bleeding: Status: Acute Assessment and plan: Bleeding is currently not too heavy. The patient experienced nausea with aygestin in the past and discontinued it. If bleeding increases, norethindrone can be considered. Please contact duplicate maker for further guidance. (4) Severe sepsis: Status: Acute Assessment and plan: The patient appears improved today, afebrile with a slight decrease in WBC and lactate levels returning to normal. She is on IV Zosyn. BC + gm - rods and gm + cocci - afebrile for 24h+' continue zosyn BC rechecked Continue abx as planned with bacteremia -- consult ID @ [facility] on 10/[address] Mcbride ([facility]) Discussed with Dr Orr (5) Hypomagnesemia: Status: Acute Assessment and plan: 1.6 repleted - trend Subjective Subjective Patient reports: no new complaints, pain is less, tolerating liquids well, tolerating a regular diet, voiding w/o difficulty, bowel movement and afebrile; denies flatus, diarrhea, nausea or vomiting Interval history since last seen: Alert, sitting in the chair in the room, patient reports [facility] called and changed her appt from this to Next October 11 @ 1PM Exam Narrative Exam Narrative: * General: Elderly female of stated age, no acute distress. * Head: Atraumatic. * Eyes: Non-icteric, non-injected. * Oral Mucosa: Moist. * Neck: Supple, full range of motion, no jugular venous distention . * Respiratory: Even and unlabored respirations, no wheezing no rales * Cardiovascular: Regular rate and rhythm. * Abdomen: Benign. * Extremities: No edema, moves all extremities. * Neurologic: Awake, alert, oriented, no focal deficits. * Psychiatric: Appropriate mood and affect. * Skin: No rashes or lesions. Objective Last Vital Signs Temp 36 C L 10/06/24 19:29 Pulse 67 10/06/24 19:29 Resp 19 10/06/24 19:29 BP 138/67 10/06/24 19:29 Pulse Ox 94 10/06/24 19:29 Laboratory Results - last 24 hr 10/06/24 06:11 WBC 12.21 H RBC 3.79 L Hgb 10.2 L Hct 32.5 L MCV 86 MCH 26.9 L MCHC 31.4 L RDW 14.6 Plt Count 325 MPV 9.4 Immature Gran % 0.6 Neutrophils % 57.8 Lymphocytes % 32.2 Monocytes % 7.0 Eosinophils % 2.0 Basophils % 0.4 Nucleated RBC % 0.0 Absolute Neutrophils 7.06 H Absolute Lymphocytes 3.93 H Absolute Monocytes 0.85 H Absolute Eosinophils 0.24 Absolute Basophils 0.05 Sodium 140 Potassium 3.9 Chloride 103 Carbon Dioxide 26.7 Anion Gap 10.3 BUN 16 Creatinine 1.0 Est GFR (CKD-EPI 2020) 60.23 Glucose 248 H Calcium 9.4 Magnesium 1.6 L Time Spent with Patient Time Spent with Patient: 35-49 minutes Time was spent: preparing to see the patient(eg.review tests), ordering medications,tests, procedures, referring, communicating with other health daytime caregiver, indepentently interpreting results, counseling the patient and care coordination
[2024-10-06 22:53] VITALS: BP 134/77; PULSE 72; RESP 17; TEMP 35.2; O2SAT 95
[2024-10-07] MEDS: PIPERACILLIN/TAZO 4.5 GM in Normal Saline 100 ML IVPB ×4 (00:23→17:32)
[2024-10-07 03:03] VITALS: BP 123/70; PULSE 65; RESP 17; TEMP 35.5; O2SAT 97
[2024-10-07] MEDS: Levothyroxine 25 MCG TAB PO (06:12)
[2024-10-07] MEDS: Levothyroxine 100 MCG TAB PO (06:12)
[2024-10-07 06:53] LABS: Abs Immature Grans 0.07 10^3/uL (0.0-0.06); Absolute Basophil Count 0.05 10^3/uL (0.0-0.2); Absolute Eosinophil Count 0.24 10^3/uL (0.0-0.7); Absolute Monocyte Count 0.73 10^3/uL (0.1-0.8); Absolute Neutrophil Count 6.55 10^3/uL (1.2-6.7); Basophils % 0.4 %; Eosinophils % 2.1 %; HCT 32.6 % (36.0-46.0); HGB 10.3 g/dL (11.2-15.7); Immature Grans % 0.6 %; Lymphocytes % 33.8 %; MCH 26.8 pg (27.0-33.0); MCHC 31.6 % (32.0-36.0); MCV 85 fL (80-95); MPV 9.1 fL (8.0-11.0); Monocytes % 6.3 %; Neutrophils % 56.8 %; Platelet Count 344 10^3/uL (130-400); RBC 3.85 10^6/uL (3.93-5.22); RDW 14.5 % (11.7-14.6); RDW-SD 44.6 fL; WBC 11.54 10^3/uL (4.4-10.8)
[2024-10-07 07:23] LABS: Anion Gap 7.6 mmol/L (3-11); BUN 16 mg/dL (7-18); C-Reactive Protein 3.48 mg/dL (<or=0.5); CO2 27.4 mmol/L (21.0-32.0); CREATININE 1.1 mg/dL (0.55-1.02); Calcium 9.9 mg/dL (8.5-10.1); Chloride 105 mmol/L (98-107); Estimated GFR 53.72 (mL/min/1.73m2); Glucose 160 mg/dL (74-106); Magnesium 1.8 mg/dL (1.8-2.4); Potassium 4.1 mmol/L (3.5-5.1); Sodium 140 mmol/L (136-145)
[2024-10-07 07:46] LABS: Procalcitonin 2.21 ng/mL
[2024-10-07 08:03] VITALS: BP 148/64; PULSE 60; RESP 19; TEMP 36.7; O2SAT 95
[2024-10-07] MEDS: Pantoprazole 40 MG TABCR PO (08:53)
[2024-10-07] MEDS: Magnesium Oxide 400 MG TAB PO (08:53)
[2024-10-07] MEDS: SITagliptin 100 MG TAB PO (08:53)
[2024-10-07] MEDS: Lisinopril 5 MG TAB 20 MG PO (08:54)
[2024-10-07] MEDS: Citalopram 20 MG TAB 40 MG PO (08:54)
[2024-10-07] MEDS: glipiZIDE 10 MG TAB PO (08:54)
[2024-10-07] MEDS: Simvastatin 20 MG TAB PO (08:55)
[2024-10-07] MEDS: Insulin Aspart 300 UNITS/3 ML PEN SC ×4 (08:55→21:34)
[2024-10-07] MEDS: Normal Saline Flush 10 ML SYR IVP ×5 (08:56→21:33)
[2024-10-07] MEDS: Melatonin 3 MG TAB 9 MG PO (09:30)
[2024-10-07 11:43] VITALS: BP 127/70; PULSE 69; RESP 19; TEMP 36; O2SAT 96
[2024-10-07 14:59] VITALS: BP 133/66; PULSE 63; RESP 19; TEMP 36.7; O2SAT 94
[2024-10-07] MEDS: Acetaminophen 325 MG TAB 650 MG PO (15:11)
--- NOTE | 2024-10-07 17:27 | CMPROGNOTE_ITS ---
Date of service: 10/07/24 Time of Service: 17:27 Care Management Progress Note Progress Note Text Progress Note Text: Stephanie was sitting up in a chair when CM met with her. She was pleasant in manner and easily engaged with CM. Stephanie was again hoping to be able to be discharged today however the bacteria in her blood cultures have not been identified and susceptibilities are not known. Repeat blood cultures were drawn yesterday which are negative at 24 hours. Stephanie is currently receiving Zosyn . She remqains afebrile and her vital signs are stable. Stephanie is scheduled to have a hysterectomy at [facility] on Friday. The fact that she has positive blood cultures may affect that plan. CM will follow. Yesterday Stephanie asked for assistance with the revision of her Healthcare Agent Forms. The forms were revised and appropriately witnessed and faxed to the [place] [employer]. This morning Stephanie asked if she could add one of her sons, so the forms were redone. Discharge Potential Discharge Needs: PCP F/U Appt Anticipated Barriers to Discharge: Medical Status Patient/Family Education Needs: Review discharge instructions, discuss Ask Me Three Transportation: Private vehicle Plan: Anticipate Stephanie will be discharged home, possibly with home health services, when medically cleared. She will follow up with her community providers and plan of care and transport with family. Stephanie is scheduled to have a hysterectomy at [facility] on Friday. The fact that she is bacteremic may affect that plan. CM will continue to assess for discharge needs. Social Determinants of Health Screening Social Determinants of Health last assessed: 10/07/24 Will the Patient Participate in the Screening?: Yes Do you worry about having a steady place to live?: no Problems where you live: no known problems In the past 12 months, have you had to go without electric, gas, oil or water in your home?: no Have you or anyone in your house had to go without enough food to eat?: no Has lack of transportation kept you from medical appointments or from doing things needed for daily living?: no Has anyone in your life made you feel unsafe or unsupported?: no How hard is it for you to pay for the very basics like food, housing, medical care, and heating? Would you say it is:: Not hard at all Do you want help finding or keeping work or a job?: I do not need or want help If for any reason you need help with day-to-day activities such as bathing, preparing meals, shopping, managing finances, etc., do you get the help you need?: I don?t need any help How often do you feel lonely or isolated from those around you?: Never Do you speak a language other than Icelandic at home?: No Does the patient want assistance with any of the above?: No
--- NOTE | 2024-10-07 19:44 | W.PM.PROGNOT ---
Date of Service Date of service: 10/07/24 Time of Service: 10:00 Assessment and Plan Assessment and plan (1) Bacteremia: Status: Acute Assessment and plan: Gram-positive cocci and gram-negative rods following blood on 10/05/2024 Will continue continue pip meliza; trend WBC Awaiting further result from initial blood cultures to be more specific on antibiotic Will consult with [facility] ID in a.m. 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 She insists her son can bring her and she does not need transportation there. Seen by STATISTICAL METHODS TEACHER again today - see their note (3) Postmenopausal bleeding: Status: Acute Assessment and plan: Ongoing bleeding is currently not too heavy. Trend H&H The patient experienced nausea with aygestin in the past and discontinued it. Consider norethindrone if increased bleeding And contact refrigerating engineer for further guidance. (4) Hypomagnesemia: Status: Acute Assessment and plan: Resolved magnesium level 1.8 - trend (5) Severe sepsis: Status: Acute Assessment and plan: The patient appears improved today, afebrile with a slight decrease in WBC and lactate levels returning to normal. She is on IV Zosyn. BC + gm - rods and gm + cocci - afebrile for 24h+' continue zosyn BC rechecked Continue abx as planned with bacteremia --still no further detail on species of GNR and GPC, we will contact consult ID @ [facility] with further results available Previous discussion with Dr Mcbride ([facility]) Plan to DC on oral antibiotic on Sunday 10/[address] Orr Subjective Subjective Patient reports: no new complaints, feels better, tolerating liquids well, tolerating a regular diet and voiding w/o difficulty (Seems to be incontinent of urine and as a brief with reported vaginal bleed due to CA); denies diarrhea, blood in stool, nausea, vomiting, shortness of breath or fever Exam Narrative Exam Narrative: Alert and oriented x 4, nonfocal, S1-S2, no murmur, clear lungs, abdomen is nondistended soft nontender, no CVA tenderness moves all 4 extremities Objective Last Vital Signs Temp 36.7 C 10/07/24 14:59 Pulse 63 02/27/25 14:59 Resp 19 10/07/24 14:59 BP 133/66 10/07/24 14:59 Pulse Ox 94 10/07/24 14:59 Laboratory Results - last 24 hr 10/07/24 06:08 WBC 11.54 H RBC 3.85 L Hgb 10.3 L Hct 32.6 L MCV 85 MCH 26.8 L MCHC 31.6 L RDW 14.5 Plt Count 344 MPV 9.1 Immature Gran % 0.6 Neutrophils % 56.8 Lymphocytes % 33.8 Monocytes % 6.3 Eosinophils % 2.1 Basophils % 0.4 Nucleated RBC % 0.0 Absolute Neutrophils 6.55 Absolute Lymphocytes 3.90 H Absolute Monocytes 0.73 Absolute Eosinophils 0.24 Absolute Basophils 0.05 Sodium 140 Potassium 4.1 Chloride 105 Carbon Dioxide 27.4 Anion Gap 7.6 BUN 16 Creatinine 1.1 H Est GFR (CKD-EPI 2020) 53.72 Glucose 160 H Calcium 9.9 Magnesium 1.8 C-Reactive Protein 3.48 H Procalcitonin 2.21 Time Spent with Patient Time Spent with Patient: >50 minutes Time was spent: preparing to see the patient(eg.review tests), obtaining and/or reviewing separately otained hiistory, ordering medications,tests, procedures, referring, communicating with other health care connector, indepentently interpreting results, counseling the patient and care coordination
[2024-10-08] MEDS: PIPERACILLIN/TAZO 4.5 GM in Normal Saline 100 ML IVPB ×3 (00:55→12:27)
[2024-10-08 01:39] VITALS: BP 121/60; PULSE 61; RESP 18; TEMP 36.5; O2SAT 96
[2024-10-08 05:27] VITALS: BP 119/53; PULSE 61; RESP 16; TEMP 36.3; O2SAT 95
[2024-10-08] MEDS: Levothyroxine 25 MCG TAB PO (05:28)
[2024-10-08] MEDS: Levothyroxine 100 MCG TAB PO (05:28)
[2024-10-08 06:26] LABS: Abs Immature Grans 0.11 10^3/uL (0.0-0.06); Absolute Basophil Count 0.07 10^3/uL (0.0-0.2); Absolute Lymphocyte Count 3.92 10^3/uL (1.2-3.4); Absolute Monocyte Count 0.88 10^3/uL (0.1-0.8); Basophils % 0.6 %; HCT 31.7 % (36.0-46.0); Immature Grans % 0.9 %; MCH 26.7 pg (27.0-33.0); MCHC 31.5 % (32.0-36.0); MCV 85 fL (80-95); MPV 9.1 fL (8.0-11.0); Monocytes % 7.2 %; Neutrophils % 57.3 %; Platelet Count 359 10^3/uL (130-400); RBC 3.74 10^6/uL (3.93-5.22); RDW 14.4 % (11.7-14.6); RDW-SD 44.7 fL; WBC 12.25 10^3/uL (4.4-10.8)
[2024-10-08 06:27] LABS: Absolute Eosinophil Count 0.25 10^3/uL (0.0-0.7); Absolute Neutrophil Count 7.02 10^3/uL (1.2-6.7)
[2024-10-08 06:37] LABS: Anion Gap 7.2 mmol/L (3-11); BUN 19 mg/dL (7-18); CO2 27.8 mmol/L (21.0-32.0); Calcium 9.4 mg/dL (8.5-10.1); Chloride 104 mmol/L (98-107); Estimated GFR 60.23 (mL/min/1.73m2); Glucose 172 mg/dL (74-106); Magnesium 1.7 mg/dL (1.8-2.4); Sodium 139 mmol/L (136-145)
[2024-10-08 06:55] LABS: Iron 40 ug/dL (50-170); Total Iron Binding Capacity 345 ug/dL (250-450); Transferrin Sat 12 % (15-50)
[2024-10-08] MEDS: SITagliptin 100 MG TAB PO (07:58)
[2024-10-08] MEDS: Citalopram 20 MG TAB 40 MG PO (07:58)
[2024-10-08] MEDS: glipiZIDE 10 MG TAB PO (07:58)
[2024-10-08] MEDS: Magnesium Oxide 400 MG TAB PO (07:58)
[2024-10-08] MEDS: Lisinopril 5 MG TAB 20 MG PO (07:58)
[2024-10-08] MEDS: Pantoprazole 40 MG TABCR PO (07:58)
[2024-10-08] MEDS: Simvastatin 20 MG TAB PO (07:59)
[2024-10-08] MEDS: Insulin Aspart 300 UNITS/3 ML PEN SC ×2 (07:59→12:28)
[2024-10-08] MEDS: Normal Saline Flush 10 ML SYR IVP (07:59)
[2024-10-08 08:08] VITALS: BP 169/84; PULSE 81; RESP 16; TEMP 36.8; O2SAT 98
--- NOTE | 2024-10-08 09:41 | PDOC.CMPRO ---
Date of service: 10/08/24 Time of Service: 09:41 Care Management Progress Note Discharge Potential Discharge Needs: PCP F/U Appt Anticipated Barriers to Discharge: None Identified Patient/Family Education Needs: Review discharge instructions, discuss Ask Me Three Transportation: Private vehicle Plan: Anticipate Stephanie will be discharged home, possibly with home health services, when medically cleared. She will follow up with her community providers and plan of care and transport with family. Stephanie is scheduled to have a hysterectomy at [facility] on Friday. The fact that she is bacteremic may affect that plan. CM will continue to assess for discharge needs. Social Determinants of Health Screening Social Determinants of Health last assessed: 10/08/24 Will the Patient Participate in the Screening?: Yes Do you worry about having a steady place to live?: no Problems where you live: no known problems In the past 12 months, have you had to go without electric, gas, oil or water in your home?: no Have you or anyone in your house had to go without enough food to eat?: no Has lack of transportation kept you from medical appointments or from doing things needed for daily living?: no Has anyone in your life made you feel unsafe or unsupported?: no How hard is it for you to pay for the very basics like food, housing, medical care, and heating? Would you say it is:: Not hard at all Do you want help finding or keeping work or a job?: I do not need or want help If for any reason you need help with day-to-day activities such as bathing, preparing meals, shopping, managing finances, etc., do you get the help you need?: I don?t need any help How often do you feel lonely or isolated from those around you?: Never Do you speak a language other than Armenian at home?: No Does the patient want assistance with any of the above?: No
--- NOTE | 2024-10-08 10:46 | DSE_ITS ---
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: Status: Acute (3) Postmenopausal bleeding: Status: Acute (4) Hypomagnesemia: (5) Severe sepsis: Status: Resolved Discharge Plan Disposition Patient Disposition: Home Condition: Improving Discharge Details Reason For Visit: Severe Sepsis Admit Date/Time: 10/04/24 01:34 Admit Provider: Bull Avila Attending Provider: Bull Avila Primary Care Provider: Kika Norman Hospital Course Hospital Course: This 73-year-old female patient with a past medical history cerebral palsy disorder, diabetes, hypertension, hyperlipidemia, hepatic steatosis, psoriasis, GERD presented to the ED for evaluation of altered mental status with lower abdominal pain, fevers, chills. Workup in the ED revealed a CT of the chest abdomen pelvis with findings serous carcinoma of the body of the uterus) with thickening of the endometrial stripe associated with inflammation and air and severe sepsis. Blood work revealed leukocytosis at 13.9 and a lactate over 4. At the time the patient had a blood pressure of 100/74 responding to IV crystalloid resuscitation. At that made for transfer to [facility] were not successful due to capacity. Treatment was initiated with piperacillin/tazobactam and the patient was admitted to the hospitalist service for evaluation and management of severe sepsis with pending blood culture results. Consultation with EDIPHONE OPERATOR at [facility] which was completed resulting in an appointment at [facility] on Friday, October 11, 2024 for surgical intervention. Initial blood cultures grew anaerobic GNR and GPC with repeated blood cultures on subsequent day were negative. The patient was transitioned to oral Flagyl and Augmentin. H&H remained stable with moderate vaginal bleeding. [facility] ID consult: Anaerobes GNR and GPC since 10/05/24 unable to differentiate at this time d/t slow growth- repeat blood cultures negative > 24hours. [facility] infectious disease consulted and in agreement with plan for discharging patient on oral Flagyl and Augmentin to complete the 10-day course of treatment s/p negative blood cultures. They are also recommending source control mostly if endometrial cancer lesion was thought to be the source of the bacteremia. The patient might need further cultures from ciro-operative specimen and prolonged course of antibiotics. The patient will need to follow-up with her primary care practitioner within 7 days of discharge. discussed with Dr Orr Home Meds and New Rx's Prescriptions: New amoxicillin-pot clavulanate 875-125 mg Tablet 1 tab PO BID Qty: 16 0RF metronidazole 500 mg Tablet 500 mg PO Q8H Qty: 24 0RF Continued lisinopril 5 mg tablet 20 mg PO DAILY aspirin [Adult Aspirin Regimen] 81 mg tablet,delayed release (DR/EC) 81 mg PO DAILY glipizide 10 mg tablet 10 mg PO DAILY Januvia 100 mg tablet 100 mg PO DAILY levothyroxine 125 mcg capsule 125 mcg PO DAILY pantoprazole 40 mg tablet,delayed release (DR/EC) 40 mg PO DAILY simvastatin 20 mg tablet 20 mg PO DAILY tolterodine 1 mg tablet 1 mg PO BID citalopram 40 mg tablet 40 mg PO DAILY tolterodine [Detrol] 1 mg tablet 1 mg PO BID Januvia 100 mg tablet 100 mg PO DAILY magnesium oxide 400 mg magnesium tablet 400 mg PO DAILY (DME) Prevail Brief Large Misc See Rx Instructions .Route Qty: 64 6RF Rx Instructions: As directed ibuprofen 600 mg tablet 600 mg PO Q6H PRN (Reason: pain) Qty: 60 0RF Discharge Instructions Stand Alone Forms: Nursing Discharge Form Referrals: EDIPHONE OPERATOR,[facility] [OTHER] - 10/11/24 (Please call to clarify appointment time.) Kika Norman [Primary Care Provider] - (Please call to schedule a follow-up appointment for 1 week post DC.) Activity:: Activity as Tolerated Equipment/Supplies:: No Equipment Needed Diet:: Heart healthy diabetic Discharge Orders Discharge Orders: Discharge Order (Routine); Ordered 10/08/24 Ordered By: Allyson Zurita Discharge Data Discharge Date/Time-TO BE ENTERED AT DEPARTURE: 10/08/24 18:48 DS: Summary Time Spent with Patient providing and/or coordinating discharge services: Greater than 30 minutes Status at Discharge Functional status at discharge: independent ambulation Overall status at discharge: patient is progressing back to baseline Mental Status: mental status grossly normal Speech and Movement: speech and movement normal Mood: congruent mood Affect: normal affect Quality:SDOH Health Related Social Needs: No Data to Display Exam Narrative Exam Narrative: Alert and oriented x 4, nonfocal, S1-S2, no murmur, clear lungs, abdomen is nondistended soft nontender, no CVA tenderness moves all 4 extremities Psych Mental Status: mental status grossly normal Speech and Movement: speech and movement normal Mood: congruent mood Affect: normal affect DS: Data Vitals/I&O Vitals and I&O: Vital Signs Temperature 36.8 C 10/08/24 08:08 Temperature Source Temporal Artery Scan 10/08/24 08:08 Pulse 81 10/08/24 08:08 Pulse Rhythm Regular 10/04/24 03:45 Pulse 85 10/04/24 02:01 Respiratory Rate 16 10/08/24 08:08 Respiratory Effort Normal 10/04/24 03:45 Respiratory Depth Normal 10/04/24 03:45 Respiratory Pattern Normal 10/04/24 03:45 Blood Pressure 169/84 H 10/08/24 08:08 Blood Pressure Mean 71 10/04/24 02:01 Pulse Oximetry 98 10/08/24 08:08 Oxygen Delivery Method Room Air 10/08/24 08:08 Oxygen Flow Rate 0 10/08/24 08:08 Pain Level 0 10/08/24 09:37 Comment 2lpm nc 10/04/24 01:31 Intake & Output 10/07/24 10/07/24 10/08/24 11:59 23:59 11:59 Intake Total 320 / 760 440 / 760 450 / 450 Balance 320 / 760 440 / 760 450 / 450 Intake: IV 200 / 400 200 / 400 210 / 210 Oral 120 / 360 240 / 360 240 / 240 Other: Urine Color Delaplaine Delaplaine Yellow Urine Appearance Clear Clear Clear Urine Odor Normal Normal Comment INCONTINENT OVERNIGHT mixed with blood Stool Size Moderate Stool Characteristics Soft Formed Brown Data Completed and Pending Labs on day of discharge: Labs from last 24 hours 10/08/24 10/08/24 05:42 05:35 WBC 12.25 H RBC 3.74 L Hgb 10.0 L Hct 31.7 L MCV 85 MCH 26.7 L MCHC 31.5 L RDW 14.4 Plt Count 359 MPV 9.1 Immature Gran % 0.9 Neutrophils % 57.3 Lymphocytes % 32.0 Monocytes % 7.2 Eosinophils % 2.0 Basophils % 0.6 Nucleated RBC % 0.0 Absolute Neutrophils 7.02 H Absolute Lymphocytes 3.92 H Absolute Monocytes 0.88 H Absolute Eosinophils 0.25 Absolute Basophils 0.07 Sodium 139 Potassium 4.0 Chloride 104 Carbon Dioxide 27.8 Anion Gap 7.2 BUN 19 H Creatinine 1.0 Est GFR (CKD-EPI 2020) 60.23 Glucose 172 H Calcium 9.4 Magnesium 1.7 L Iron 40 L TIBC 345 Transferrin % Sat 12 L Preliminary micro results at discharge 10/06/24 15:15 Blood Culture - Preliminary Blood NO GROWTH 24 HOURS 10/06/24 15:08 Blood Culture - Preliminary Blood NO GROWTH 24 HOURS 10/03/24 18:25 Blood Culture - Preliminary Blood Gram positive cocci Gram negative rosalind 10/03/24 18:27 Blood Culture - Preliminary Blood Gram negative rosalind Gram positive cocci PFSH All Active Problems (Updated 10/09/24 @ 00:01 by LOUISE LARKIN) Bacteremia (Acute) Endometritis (Acute) Serous carcinoma of body of uterus (Acute) Postmenopausal bleeding (Acute) thickened endometrium Endo bx 09/07/24 Medical History (Updated 10/09/24 @ 00:01 by LOUISE LARKIN) Advanced care planning/counseling discussion Palliative care encounter Hypomagnesemia Psoriasis Vitamin D deficiency Anemia Steatosis of liver Panic disorder Urinary incontinence Diplegic cerebral palsy GERD (gastroesophageal reflux disease) Hypothyroidism Hyperlipidemia Diabetes Hypertension Surgical History History of cholecystectomy Social History Smoking/Tobacco Use Status: Never Smoking risk assessment performed?: Yes Alcohol Intake: former Substance use type: does not use Housing: other Female Reproductive History Menstrual Age of Menarche: 8 History History Para 8 Hx # Term Pregnancies Multiple births Hx # Pregnancies Ectopic pregnancies AB induced Hx Number of Living Children AB spontaneous Time Spent with Patient Time Spent with Patient: 45-69 minutes Time was spent: preparing to see the patient(eg.review tests), referring, communicating with other health health care facilities inspector, indepentently interpreting results, counseling the patient and care coordination
[2024-10-08 11:35] VITALS: BP 125/84; PULSE 68; RESP 16; TEMP 37; O2SAT 95
[2024-10-08] MEDS: metroNIDAZOLE 500 MG TAB PO (14:28)
[2024-10-08 16:26] VITALS: BP 134/82
--- NOTE | 2024-10-08 18:52 | CMDISCH_ITS ---
Date of service: 10/08/24 Time of Service: 18:52 LACE Index Scoring Tool Questions: Length of Stay (in days): 4 - 6 Was the patient admitted via the E.D.?: Yes Comorbidities: Diabetes w/o Complication, Any Tumor and Liver or Renal Disease E.D. Visits: 2 Answers: Total Score: 14 Risk of Readmission: High Risk Care Management Discharge Plan Reason for Hospitalization: severe sepsis Discharge Plan: Stephanie will be discharged home and her essential person will resume services. Stephanie will follow up with her PCP and plan of care and transport with family. She is scheduled to have a hysterectomy at [facility] on Friday. Patient/Family Education Needs: Review discharge instructions, limitations, follow up plan and discuss Ask Me Three [facility] Health Related Social Needs: No Data to Display
== END 2024-10-08 18:48 | disposition home or self-care (01) | DRG 872 ==
LOC: ER 10-04 02:16 → MS 10-04 03:20
PROVIDERS: Nurse Practitioner Family; Admitting Provider Emergency Medicine; Emergency Provider Emergency Medicine; PCP Family Medicine; Responsible Provider Nurse Practitioner Acute Care; Visit Provider Emergency Medicine
DX: A41.9 Sepsis, unspecified organism (principal); N71.0 Acute inflammatory disease of uterus; R65.20 Severe sepsis without septic shock; R41.82 Altered mental status, unspecified; G80.8 Other cerebral palsy; E83.42 Hypomagnesemia; C54.1 Malignant neoplasm of endometrium; F41.0 Panic disorder [episodic paroxysmal anxiety]; E11.9 Type 2 diabetes mellitus without complications; I10 Essential (primary) hypertension; E78.5 Hyperlipidemia, unspecified; K76.0 Fatty (change of) liver, not elsewhere classified; K21.9 Gastro-esophageal reflux disease without esophagitis; L40.9 Psoriasis, unspecified; N95.0 Postmenopausal bleeding; D64.9 Anemia, unspecified; R32 Unspecified urinary incontinence; E03.9 Hypothyroidism, unspecified; Z79.84 Long term (current) use of oral hypoglycemic drugs
CPT/HCPCS: 00123; 36415; 74177; 80048; 80053; 83690; 84145; 87040; 87637; 93005; 94761; 96365; 96366; 96375; 96376; 99291; 70450; 71260; 81003; 81015; 83540; 83550; 83605; 83735; 85025; 86140; 93010; 99223; 99232; 99233; 99239; J1630; J1815; J2060; J2543; J3475; J3490

== ENCOUNTER 2024-11-22 12:13 | Outpatient (REF) | payer MEDICARE, MEDICAID, SELFPAY ==
[2024-11-22 14:40] LABS: HCT 36.2 % (36.0-46.0); HGB 11.3 g/dL (11.2-15.7); MCH 26.4 pg (27.0-33.0); MCHC 31.2 % (32.0-36.0); MCV 85 fL (80-95); MPV 10.2 fL (8.0-11.0); Platelet Count 379 10^3/uL (130-400); RBC 4.28 10^6/uL (3.93-5.22); RDW 13.7 % (11.7-14.6); RDW-SD 42.5 fL; WBC 10.44 10^3/uL (4.4-10.8)
[2024-11-22 15:07] LABS: Hemoglobin A1C 7.4 % (<5.7)
[2024-11-22 15:16] LABS: ALT 27 U/L (14-59); AST 20 U/L (15-37); Albumin 3.7 g/dL (3.4-5.0); Alkaline Phosphatase 155 U/L (46-116); BUN 15 mg/dL (7-18); Bilirubin, Total 0.3 mg/dL (0.2-1.0); CREATININE 0.8 mg/dL (0.55-1.02); Calcium 9.9 mg/dL (8.5-10.1); Chloride 101 mmol/L (98-107); Estimated GFR 78.72 (mL/min/1.73m2); Glucose 189 mg/dL (74-106); Potassium 4.1 mmol/L (3.5-5.1); Sodium 138 mmol/L (136-145); TSH (W/Ref FT4) 39.18 uIU/mL (0.36-3.74); Total Protein 7.9 g/dL (6.4-8.2)
[2024-11-22 16:35] LABS: FREE T4 0.95 ng/dL (0.76-1.46)
== END 2024-11-22 12:14 | disposition home or self-care (01) ==
LOC: NCHCN 12:13
PROVIDERS: PCP Family Medicine; Visit Provider Family Medicine
DX: Z01.818 Encounter for other preprocedural examination (principal); E03.9 Hypothyroidism, unspecified
CPT/HCPCS: 80053; 85027; 83036; 84439; 84443

== ENCOUNTER 2025-01-21 15:48 | Outpatient (REF) | payer MEDICARE, MEDICAID, SELFPAY ==
[2025-01-21 14:12] LABS: TSH (W/Ref FT4) 67.62 uIU/mL (0.36-3.74)
[2025-01-21 14:29] LABS: FREE T4 0.75 ng/dL (0.76-1.46)
== END 2025-01-21 15:49 | disposition home or self-care (01) ==
LOC: LBN 15:48
PROVIDERS: PCP Family Medicine; Visit Provider Family Medicine
DX: E03.9 Hypothyroidism, unspecified (principal)
CPT/HCPCS: 84439; 84443

== ENCOUNTER 2025-01-25 14:53 | Emergency (ER) | payer MEDICARE, MEDICAID, SELFPAY ==
[2025-01-25] VITALS (45 sets, daily range): BP systolic 87–207; BP diastolic 42–125; PULSE 78–104; RESP 8–27; TEMP 36.6; O2SAT 92–98
--- NOTE | 2025-01-25 16:00 | W.ED.GENAD ---
Discharge Plan Disposition Patient Disposition: Home Condition: Stable Discharge Details Clinical Impression: Hypomagnesemia, Hypokalemia, Acute UTI Primary Care Provider: Kika Norman ED Provider: Bhumi Philip Recommendations for Follow Up Recommended tests to be ordered by follow up provider: mag kaylie in 3-5 days Home Meds and New Rx's Prescriptions: New cephalexin 500 mg capsule 500 mg PO QID 7 Days Qty: 28 0RF No Action lisinopril 5 mg tablet 40 mg PO DAILY aspirin [Adult Aspirin Regimen] 81 mg tablet,delayed release (DR/EC) 81 mg PO DAILY glipizide 10 mg tablet 10 mg PO DAILY Januvia 100 mg tablet 100 mg PO DAILY levothyroxine 125 mcg capsule 150 mcg PO DAILY pantoprazole 40 mg tablet,delayed release (DR/EC) 40 mg PO DAILY simvastatin 20 mg tablet 20 mg PO DAILY tolterodine 1 mg tablet 1 mg PO BID citalopram 40 mg tablet 40 mg PO DAILY magnesium oxide 400 mg magnesium tablet 400 mg PO DAILY (DME) Prevail Brief Large Misc See Rx Instructions .Route Qty: 64 6RF Rx Instructions: As directed ibuprofen 600 mg tablet 600 mg PO Q6H PRN (Reason: pain) Qty: 60 0RF Discharge Instructions Instructions: Hypomagnesemia Additional Instructions: You were seen in the emergency department today for evaluation of urinary tract infection symptoms, and were found to have concerning laboratory studies for UTI. You were also found to have very low magnesium and potassium, which were repleted in the emergency department. I recommend that you continue to take your supplementation, you have a magnesium supplement and can use dietary supplementation such as potatoes and bananas for your potassium. You need to be seen in the outpatient environment in the next few days to have your levels rechecked to ensure that they are getting better not worse. You have been prescribed an antibiotic, please take all this medication until it is gone, even if you start to feel better. Please follow-up with your primary care provider in the next few days to discuss this visit and any symptoms that change, worsen, or persist. Thank you for allowing us to be part of your care. HPI General Mode of arrival: ambulatory. Date/Time Provider Initiated Documentation: 01/25/25 15:03. Limitations to Documentation: no limitations. Information obtained by: patient, family and old records reviewed. HPI Narrative: This is a 69-year-old female patient presenting for evaluation given concern for urinary tract infection. She reports that she has noted a bad smell, which happens when she gets urinary tract infections. She also noted that her blood pressure was quite high this morning with home health, over 200 initially and then down to the 160s. She reports that she gets chemotherapy for uterine cancer, last treatment 3 weeks ago. The patient has been tolerating oral intake, and is otherwise in her normal state of health without complaint of chest pain, abdominal pain, nausea or vomiting. Related Data Home Medications ?Medication ?Instructions ?Recorded ?Confirmed aspirin 81 mg tablet,delayed 81 mg PO DAILY 09/07/24 01/25/25 release (Adult Aspirin Regimen) Held on 01/25/25. Instructions: Pt Stopped/Never Started citalopram 40 mg tablet 40 mg PO DAILY 09/07/24 01/25/25 glipizide 10 mg tablet 10 mg PO DAILY 09/07/24 01/25/25 levothyroxine 125 mcg capsule 150 mcg PO DAILY 09/07/24 01/25/25 lisinopril 5 mg tablet 40 mg PO DAILY 09/07/24 01/25/25 magnesium oxide 400 mg PO DAILY 09/07/24 01/25/25 pantoprazole 40 mg tablet,delayed 40 mg PO DAILY 09/07/24 01/25/25 release simvastatin 20 mg tablet 20 mg PO DAILY 09/07/24 01/25/25 sitagliptin phosphate 100 mg 100 mg PO DAILY 09/07/24 01/25/25 tablet (Januvia) tolterodine 1 mg tablet 1 mg PO BID 09/07/24 01/25/25 diaper,brief,adult,disposable #64 ea 09/30/24 01/25/25 (Prevail Brief Large) ibuprofen 600 mg tablet 600 mg PO Q6H PRN pain #60 tabs 09/30/24 01/25/25 cephalexin 500 mg capsule 500 mg PO QID 7 days #28 caps 01/25/25 Previous Rx's ?Medication ?Instructions ?Recorded diaper,brief,adult,disposable #64 ea 09/30/24 (Prevail Brief Large) ibuprofen 600 mg tablet 600 mg PO Q6H PRN pain #60 tabs 09/30/24 cephalexin 500 mg capsule 500 mg PO QID 7 days #28 caps 01/25/25 Allergies Allergy/AdvReac Type Severity Reaction Status Date / Time sulfamethoxazole (From Allergy Hives Verified 01/25/25 14:59 Bactrim) trimethoprim (From Bactrim) Allergy Hives Verified 01/25/25 14:59 General Stated Complaint: GenMedical ADDY: 3 Exam Narrative Exam Narrative: Gen: Awake and alert, in no apparent distress HEENT: Non-icteric sclera Neck: Supple Lungs: No apparent respiratory distress, normal respiratory effort. Lung sounds clear and equal bilaterally CV: Appears well perfused, heart with regular rate and rhythm at the time of this provider's examination Abdomen: Non-distended, soft, nontender MSK: Moves 4 extremities without apparent limitation in ROM, no peripheral edema Skin: Visualized skin without rashes, cyanosis. Neuro: No obvious focal deficits or facial asymmetry from patient's baseline, deferred ambulation as patient typically utilizes crutches due to her cerebral palsy. Speaks in full, clear sentences. Psych: Appropriate for situation. Course Vital Signs Vital signs: Vital Signs Temperature 36.6 C 01/25/25 14:54 Pulse 104 H 01/25/25 14:54 Respiratory Rate 18 01/25/25 14:54 Blood Pressure 122/65 01/25/25 14:54 Pulse Oximetry 94 01/25/25 14:54 Temperature 36.6 C 01/25/25 14:56 Temperature Source Oral 01/25/25 14:54 Pulse 104 H 01/25/25 14:56 Respiratory Rate 18 01/25/25 14:56 Blood Pressure 122/65 01/25/25 14:56 Blood Pressure Position Sitting 01/25/25 14:56 Pulse Oximetry 94 01/25/25 14:56 Oxygen Delivery Method Room Air 01/25/25 14:56 Oxygen Flow Rate 0 01/25/25 14:56 Medical Decision Making This is a 69-year-old female patient presenting for evaluation of foul-smelling urine and high blood pressure. My differential includes but is not limited to urinary tract infection, including pyelonephritis, kidney stone, metabolic electrolyte derangement, dehydration, anemia or liver injury. She is reassuringly afebrile, though I considered neutropenic fever. No systemic symptoms to significantly increase my concern for sepsis or bacteremia other than the slightly high heart rate. The patient's blood pressure has improved on its own, 122/65, and I have a low concern for hypertensive urgency or emergency, ACS, intracranial abnormality, proteinuria. We will obtain laboratory studies to include CBC, CMP, magnesium, troponin, and urinalysis. - I independently interpreted the laboratory studies, which show no significant leukocytosis, anemia, or thrombocytopenia. The chemistry panel is without evidence of kidney dysfunction or liver injury. She is, however, noted to have a slightly low potassium to 3.3, and a very low magnesium of 0.7. She has an elevated blood glucose of 313 without associated decrease in her bicarb to suggest DKA. Troponin was negative and without interval increase on 1 hour recheck. Urinalysis is unfortunately contaminated, but nitrite positive and with pyuria, and in the setting of symptoms I think it is reasonable to initiate treatment. I provided the patient with a dose of ceftriaxone and a course of Keflex was sent to her pharmacy. I gave her oral potassium as well as 4 g of intravenous magnesium. The patient reports that she supplements her magnesium orally, the source of her hypomagnesemia is not entirely clear to me. I recommended admission for this finding and the patient declines, I do not see that this truly represents an AGAINST MEDICAL ADVICE decision as she is without significant cardiac abnormalities, and has the ability to have her magnesium rechecked in the outpatient environment in the next few days. I stressed the importance of outpatient follow-up, and taking off her antibiotics until they are gone, even if she started to feel better. At this time, the patient has had a full medical evaluation and is safe for discharge to home. They are hemodynamically stable, ambulatory, and tolerating PO. They are understanding of the follow-up plan and return precautions. They left our facility without incident. 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) Postmenopausal bleeding (Acute) thickened endometrium Endo bx 09/07/24 Medical History (Updated 06/17/25 @ 18:17 by Bhumi Philip MD) Advanced care planning/counseling discussion Palliative care encounter Hypomagnesemia Psoriasis Vitamin D deficiency Anemia Steatosis of liver Urinary incontinence GERD (gastroesophageal reflux disease) Hyperlipidemia Diabetes Hypertension Surgical History History of cholecystectomy Social History Smoking/Tobacco Use Status: Never Smoking risk assessment performed?: Yes Alcohol Intake: former Drug use: Never Substance use type: does not use Housing: other Do you feel safe at home: Yes Do you feel safe in your relationship?: Yes Female Reproductive History Menstrual Age of Menarche: 8 History History Para 8 Hx # Term Pregnancies Multiple births Hx # Pregnancies Ectopic pregnancies AB induced Hx Number of Living Children AB spontaneous
[2025-01-25 16:05] LABS: Abs Immature Grans 0.01 10^3/uL (0.0-0.06); Absolute Basophil Count 0.02 10^3/uL (0.0-0.2); Absolute Eosinophil Count 0.06 10^3/uL (0.0-0.7); Absolute Lymphocyte Count 2.27 10^3/uL (1.2-3.4); Absolute Monocyte Count 0.49 10^3/uL (0.1-0.8); Absolute Neutrophil Count 2.33 10^3/uL (1.2-6.7); Basophils % 0.4 %; Eosinophils % 1.2 %; HCT 32.7 % (36.0-46.0); Immature Grans % 0.2 %; Lymphocytes % 43.8 %; MCH 25.3 pg (27.0-33.0); MCHC 30.6 % (32.0-36.0); MCV 83 fL (80-95); MPV 9.9 fL (8.0-11.0); Monocytes % 9.5 %; Neutrophils % 44.9 %; Platelet Count 165 10^3/uL (130-400); RBC 3.95 10^6/uL (3.93-5.22); RDW-SD 43.6 fL; WBC 5.18 10^3/uL (4.4-10.8)
[2025-01-25 16:21] LABS: Bilirubin Small (Negative); Blood Negative (Negative); Clarity Clear (Clear); Glucose 500 mg/dL (Negative); Ketones Trace mg/dL (Negative); Leukocyte Esterase Negative (Negative); Nitrite Positive (Negative); Specific Gravity 1.025 (1.005-1.025); Urobilinogen 0.2 mg/dL (Up to 0.2); pH 5.5 (5-8)
[2025-01-25 16:30] LABS: Bacteria Packed HPF (Negative); C & S Indicated? No/Sq. Contamination; Crystals Negative HPF (Negative); Epithelial Cells Moderate HPF (Negative); Mucus Moderate (Negative); RBC 0-2 HPF (0-2); WBC >50 HPF (0-5)
[2025-01-25 16:34] LABS: ALT 28 U/L (14-59); AST 14 U/L (15-37); Albumin 3.5 g/dL (3.4-5.0); Alkaline Phosphatase 131 U/L (46-116); Anion Gap 11.4 mmol/L (3-11); BUN 14 mg/dL (7-18); Bilirubin, Total 0.2 mg/dL (0.2-1.0); CO2 27.6 mmol/L (21.0-32.0); CREATININE 0.8 mg/dL (0.55-1.02); Calcium 8.2 mg/dL (8.5-10.1); Chloride 101 mmol/L (98-107); Estimated GFR 78.72 (mL/min/1.73m2); Glucose 313 mg/dL (74-106); Potassium 3.3 mmol/L (3.5-5.1); Sodium 140 mmol/L (136-145); Total Protein 7.4 g/dL (6.4-8.2); Troponin I 12 ng/L (<or=51)
[2025-01-25 16:40] LABS: Magnesium 0.7 mg/dL (1.8-2.4)
[2025-01-25] MEDS: Potassium Chloride 20 MEQ TABCR 40 MEQ PO (17:05)
[2025-01-25] MEDS: cefTRIAXone 1 GM/50 ML BAG IVPB (17:06)
[2025-01-25] MEDS: MAGNESIUM SULFATE 4 GM/100 ML BAG IV_INF (17:34)
[2025-01-25 18:02] LABS: Troponin I 11 ng/L (<or=51)
--- NOTE | 2025-01-27 13:06 | NUR.NOTE ---
Nursing Note: The patient's son called and stated that he called both Petrona Alfred in [facility] and [place] have not received a prescription for antibiotics for the patient's UTI. I attempted to call but they are closed for lunch so I will call back when they have returned to confirm that they have not received the order and to give them a verbal per the patient's discharge instructions.
== END 2025-01-25 20:03 | disposition home or self-care (01) ==
PROVIDERS: Emergency Provider Emergency Medicine; PCP Family Medicine
DX: N39.0 Urinary tract infection, site not specified (principal); E87.6 Hypokalemia; E83.42 Hypomagnesemia
CPT/HCPCS: 99284 ×2; 51701; 36415; 80053; 96365; 96366; 96367; 81003; 81015; 83735; 84484; 85025; J0696; J3475

== ENCOUNTER 2025-01-28 15:14 | Outpatient (REF) | payer MEDICARE, MEDICAID, SELFPAY ==
[2025-01-28 16:36] LABS: Anion Gap 9.6 mmol/L (3-11); BUN 13 mg/dL (7-18); CO2 28.4 mmol/L (21.0-32.0); CREATININE 0.8 mg/dL (0.55-1.02); Calcium 7.8 mg/dL (8.5-10.1); Chloride 97 mmol/L (98-107); Estimated GFR 78.72 (mL/min/1.73m2); Glucose 306 mg/dL (74-106); Potassium 3.6 mmol/L (3.5-5.1); Sodium 135 mmol/L (136-145)
== END 2025-01-28 15:15 | disposition home or self-care (01) ==
LOC: NCHCN 15:14
PROVIDERS: PCP Family Medicine; Visit Provider Family Medicine
DX: E83.42 Hypomagnesemia (principal)
CPT/HCPCS: 80048; 83735

== ENCOUNTER 2025-02-01 08:57 | Day surgery (SDC) | payer MEDICARE, MEDICAID, SELFPAY ==
--- NOTE | 2025-02-01 | DI.RAD_ITS ---
Exam(s) XR PORTABLE CHEST AP EXAM: XR PORTABLE CHEST AP CLINICAL HISTORY: Rule out pneumothorax after Mediport TECHNIQUE: 2D digital imaging was performed. COMPARISON: CT CT CHEST/ABD/PEL W from 10/03/2024 XA RF LINE PLACEMENT OR from 02/01/2025 FINDINGS: A port has been placed via the right jugular. The tip lies in the lower SVC. LUNGS: Clear. No pleural abnormality seen. HEART: Normal size. AORTA: Normal diameter. BONES: Unremarkable for age. Soft tissues: Unremarkable. IMPRESSION: Satisfactory port placement. No evidence of pneumothorax. DATA REPOSITORY: RADIATION DOSE DELIVERED:
[2025-02-01 09:19] VITALS: BP 164/96; PULSE 98; RESP 18; TEMP 36.6; O2SAT 94
[2025-02-01] MEDS: Lactated Ringers 1,000 ML 80 ML IV (09:32)
--- NOTE | 2025-02-01 10:04 | W.ANESPRE ---
General Info Date of Service Date Performed: 02/01/25 Height: 5 ft 2 in Weight: 91.172 kg Body Mass Index (BMI): 36.7 Surgical Procedure: Operation Date: 02/01/25 10:10 Proposed Procedure Side Surgeon p Medi-port Placement Left Blade Arredondo MD Actual Procedure Side Surgeon p Medi-port Placement Left Blade Arredondo MD Meds Allergies and Home Medications Allergies Allergy/AdvReac Type Severity Reaction Status Date / Time sulfamethoxazole (From Allergy Hives Verified 02/01/25 09:14 Bactrim) trimethoprim (From Bactrim) Allergy Hives Verified 02/01/25 09:14 Home Medication ?Medication ?Instructions ?Recorded aspirin 81 mg tablet,delayed 81 mg PO DAILY 09/07/24 release (Adult Aspirin Regimen) Held on 01/25/25. Instructions: Pt Stopped/Never Started citalopram 40 mg tablet 40 mg PO DAILY 09/07/24 glipizide 10 mg tablet 10 mg PO DAILY 09/07/24 levothyroxine 125 mcg capsule 150 mcg PO DAILY 09/07/24 lisinopril 5 mg tablet 40 mg PO DAILY 09/07/24 magnesium oxide 400 mg PO DAILY 09/07/24 pantoprazole 40 mg tablet,delayed 40 mg PO DAILY 09/07/24 release simvastatin 20 mg tablet 20 mg PO DAILY 09/07/24 Held on 02/01/25. Instructions: Pt Stopped/Never Started sitagliptin phosphate 100 mg 100 mg PO DAILY 09/07/24 tablet (Januvia) tolterodine 1 mg tablet 1 mg PO BID 09/07/24 diaper,brief,adult,disposable #64 ea 09/30/24 (Prevail Brief Large) ibuprofen 600 mg tablet 600 mg PO Q6H PRN pain #60 tabs 09/30/24 Current Visit Medications: Current Medications Generic Name Dose Route Start Last Admin Trade Name Freq PRN Reason Stop Dose Admin Ringer's Solution 1,000 mls @ 80 mls/hr 02/01/25 06:00 02/01/25 09:32 IV 02/01/25 23:59 80 mls/hr INFUSION DARLING Administration Cefazolin Sodium/Dextrose 2 gm in 50 mls @ 100 mls/hr 02/01/25 06:00 Ancef Duplex IVPB 02/01/25 23:59 PREOP DARLING IV Miscellaneous Supplies 1 each 02/01/25 06:00 Iv Access IV 02/01/25 23:59 DIRECTED DARLING Sodium Chloride 0 ml 02/01/25 06:00 Normal Saline Flush 10 Ml Syr IV 02/01/25 23:59 PRN PRN Sodium Chloride 0 ml 02/01/25 06:00 Normal Saline 10 Ml Vial IJ 02/01/25 23:59 DIRECTED PRN Sterile Water 0 ml 02/01/25 06:00 Water,Injection,Sterile 10 Ml Vial IJ 02/01/25 23:59 DIRECTED PRN PFSH Active Problems Active Problems: Problem Status Onset Code Acute UTI Acute N39.0 Hypokalemia Acute E87.6 Hypomagnesemia Acute E83.42 Sleep disturbance Acute G47.9 Palliative care patient Acute Z51.5 Transportation insecurity Acute Z59.82 Panic disorder Acute F41.0 Diplegic cerebral palsy Acute G80.8 Hypothyroidism Chronic E03.9 Type 2 diabetes mellitus Acute E11.9 Bacteremia Acute R78.81 Endometritis Acute N71.9 Serous carcinoma of body of uterus Acute C54.9 Postmenopausal bleeding Acute N95.0 Medical History Medical History Advanced care planning/counseling discussion Palliative care encounter Hypomagnesemia Psoriasis Vitamin D deficiency Anemia Steatosis of liver Urinary incontinence GERD (gastroesophageal reflux disease) Hyperlipidemia Diabetes Hypertension Surgical History Surgical History History of cholecystectomy Tobacco Smoking/Tobacco Use Status: Never Alcohol Alcohol Intake: former Substance Use Substance use: Never Substance use type: does not use Prental History History Para 8 Hx # Term Pregnancies Multiple births Hx # Pregnancies Ectopic pregnancies AB induced Hx Number of Living Children AB spontaneous Vital Signs and Lab Results Vital Signs Most Recent Vital Signs in EMR: Most Recent Vital Signs Temp Pulse Resp BP Pulse Ox 36.6 C 98 H 18 164/96 H 94 02/01/25 09:19 02/01/25 09:19 02/01/25 09:19 02/01/25 09:19 02/01/25 09:19 Point of Care Results Point of Care Results: Finger Stick Blood Glucose 232 02/01/25 09:06 Lab Results Complete Blood Count: WBC, (4.4-10.8) 5.18 10^3/uL 01/25/25, 15:55 RBC, (3.93-5.22) 3.95 10^6/uL 01/25/25, 15:55 Hgb, (11.2-15.7) 10.0 g/dL L 01/25/25, 15:55 Hct, (36.0-46.0) 32.7 % L 01/25/25, 15:55 Plt Count, (130-400) 165 10^3/uL 01/25/25, 15:55 Complete Metabolic Panel: Sodium, (136-145) 135 mmol/L L 01/28/25, 11:40 Potassium, (3.5-5.1) 3.6 mmol/L 01/28/25, 11:40 Chloride, (98-107) 97 mmol/L L 01/28/25, 11:40 Carbon Dioxide, (21.0-32.0) 28.4 mmol/L 01/28/25, 11:40 BUN, (7-18) 13 mg/dL 01/28/25, 11:40 Creatinine, (0.55-1.02) 0.8 mg/dL 01/28/25, 11:40 Est GFR (CKD-EPI 2020), (mL/min/1.73m2) 78.72 01/28/25, 11:40 Magnesium, (1.8-2.4) 1.0 mg/dL L 01/28/25, 11:40 Calcium, (8.5-10.1) 7.8 mg/dL L 01/28/25, 11:40 Albumin, (3.4-5.0) 3.5 g/dL 01/25/25, 15:55 Glucose, (74-106) 306 mg/dL H 01/28/25, 11:40 Liver Function Panel: ALT, (14-59) 28 U/L 01/25/25, 15:55 AST, (15-37) 14 U/L L 01/25/25, 15:55 Cardiac Panel: Troponin I, (<or=51) 11 ng/L 01/25/25 Thyroid Panel: TSH, (0.36-3.74) 67.62 uIU/mL H 01/21/25, 10:55 Anesthesia Assessment and Plan Anesthesia History Personal History: PONV Family History: No Family History of Anesthesia Complications Exercise Tolerance Exercise Tolerance: Metabolic Equivalents>4 Pertinent Negatives Pertinent Negatives: No Symptoms of GERD, No Major Cardiovascular Symptoms or Complaints, No Major Pulmonary Symptoms or Complaints and No History of CVA/TIA Cardiac & Pulmonary Exam Cardiac Exam: Normal S1/S2 Heart Sounds Pulmonary Exam: Clear Bilateral Breath Sounds Implantable Cardiac Device Does patient have a Pacemaker or an ICD?: No Airway Exam Known Difficult Airway: No Mallampati Class: 3 Mouth Opening: Narrow (< 3cm) Thyromental Distance: Greater than 3 cm Neck Range of Motion: Limited ROM Neck Circumference: Normal Teeth Condition: Generalized Poor Dentition ASA Classification ASA Score: ASA 3 Emergency Case?: No NPO Status NPO Status: NPO Clears >2 hours, Solids >8 hours Anesthesia Plan Resuscitation Status: Full Code Anesthesia Technique: General Anesthesia Airway Planned: Natural Airway Monitors Used: Standard Monitors
[2025-02-01 10:05] VITALS: BMI 36.7
--- NOTE | 2025-02-01 10:30 | W.PREOPHP ---
Assessment and Plan Assessment and plan (1) Serous carcinoma of body of uterus: Status: Acute Assessment and plan: We reviewed the plan for insert Tatian of a subcutaneous Mediport catheter for chemotherapy. I explained the risks and benefits of the procedure to Stephanie and her son. I think she has a good understanding of this. She is able to provide informed consent. We can proceed with attempted left subclavian Mediport access as planned. History of Present Illness History of Present Illness Chief Complaint: Uterine cancer Narrative: Stephanie is 69 years old, and she has a new diagnosis of serous carcinoma of the uterus requiring chemotherapy. She needs durable intravenous access. 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) Postmenopausal bleeding (Acute) thickened endometrium Endo bx 09/07/24 Medical History Advanced care planning/counseling discussion Palliative care encounter Hypomagnesemia Psoriasis Vitamin D deficiency Anemia Steatosis of liver Urinary incontinence GERD (gastroesophageal reflux disease) Hyperlipidemia Diabetes Hypertension Surgical History History of cholecystectomy Social History Smoking/Tobacco Use Status: Never Smoking risk assessment performed?: Yes Alcohol Intake: former Drug use: Never Substance use type: does not use Housing: other Do you feel safe at home: Yes Do you feel safe in your relationship?: Yes Female Reproductive History Menstrual Age of Menarche: 8 History History Para 8 Hx # Term Pregnancies Multiple births Hx # Pregnancies Ectopic pregnancies AB induced Hx Number of Living Children AB spontaneous Meds Allergies and Home Medications Allergies Allergy/AdvReac Type Severity Reaction Status Date / Time sulfamethoxazole (From Allergy Hives Verified 02/01/25 09:14 Bactrim) trimethoprim (From Bactrim) Allergy Hives Verified 02/01/25 09:14 Home Medications ?Medication ?Instructions ?Recorded ?Confirmed ?Type aspirin 81 mg tablet,delayed 81 mg PO DAILY 09/07/24 02/01/25 History release (Adult Aspirin Regimen) Held on 01/25/25. Instructions: Pt Stopped/Never Started citalopram 40 mg tablet 40 mg PO DAILY 09/07/24 02/01/25 History glipizide 10 mg tablet 10 mg PO DAILY 09/07/24 02/01/25 History levothyroxine 125 mcg capsule 150 mcg PO DAILY 09/07/24 02/01/25 History lisinopril 5 mg tablet 40 mg PO DAILY 09/07/24 02/01/25 History magnesium oxide 400 mg PO DAILY 09/07/24 02/01/25 History pantoprazole 40 mg tablet,delayed 40 mg PO DAILY 09/07/24 01/25/25 History release simvastatin 20 mg tablet 20 mg PO DAILY 09/07/24 02/01/25 History Held on 02/01/25. Instructions: Pt Stopped/Never Started sitagliptin phosphate 100 mg 100 mg PO DAILY 09/07/24 02/01/25 History tablet (Januvia) tolterodine 1 mg tablet 1 mg PO BID 09/07/24 02/01/25 History diaper,brief,adult,disposable #64 ea 09/30/24 01/25/25 Rx (Prevail Brief Large) ibuprofen 600 mg tablet 600 mg PO Q6H PRN pain #60 tabs 09/30/24 02/01/25 Rx Exam Const General: cooperative and not in acute distress Neck Neck: normal visual inspection, no lymphadenopathy and supple Resp Effort & Inspection: normal respiratory effort Auscultation: clear to auscultation bilaterally Cardio Jugular venous pressure: no JVD Rate: regular rate Rhythm: regular rhythm Heart Sounds: S1 normal and S2 normal Neuro General: patient alert, patient awake and patient oriented x3 Psych Appearance: grossly normal Results Last Vital Signs Temp 97.9 F 02/01/25 09:19 Pulse 98 H 02/01/25 09:19 Resp 18 02/01/25 09:19 BP 164/96 H 02/01/25 09:19 Pulse Ox 94 02/01/25 09:19
--- NOTE | 2025-02-01 10:32 | ROE_ITS ---
Operative Note Operative Note PRE-OP DIAGNOSIS: Cancer requiring Mediport access for chemotherapy POST-OP DIAGNOSIS: same PROCEDURE: Insertion of right internal jugular Mediport SURGEON: Blade Arredondo ANESTHESIA TYPE: Local By Surgeon and General:No Airway Refer to Anesthesia Record ESTIMATED BLOOD LOSS: 10 PATHOLOGY: none sent COMPLICATIONS: None Patient was transported to: same day Patient's condition: stable Implants: Bard 8 Indonesian Port-A-Cath Indications: Stephanie is 69 years old, she was diagnosed with serous uterine carcinoma. She is undergoing chemotherapy, and needs durable central venous access. Procedure Description: I met with Stephanie and her son in the preoperative area, and reviewed the plan for the Port-A-Cath insertion. She was able to provide consent. We moved back to the operating room, she was assisted onto the OR table. She was padded and supported appropriately. Arms were tucked at her side, taking great care to ensure that they were appropriately positioned. I prepped both sides of the neck and chest, and draped out the left IJ and subclavian approach. I then performed a limited ultrasound of the left subclavian. The vein itself is extremely small, and her anatomy appears quite challenging. Therefore, I felt an internal jugular was the safest approach. This was widely patent, and a suitable target for cannulation. Therefore, I anesthetized the skin with local anesthetic, and under the direct vision of the ultrasound, cannulated the base of the left internal jugular. Images were not saved for this. The guidewire was advanced down towards the heart. Fluoroscopy was used to assist with guidance. Unfortunately, despite several attempts at repositioning, the wire continued to coursed into the right subclavian system. I was not able to get it into the atriocaval junction. Therefore, I felt that switching over to a right IJ approach was probably the safest and most efficient course of action. The drape was extended over, and the area was reprepped. Again, local anesthetic was used to anesthetize the base of the right neck, and with the assistance of the ultrasound, I cannulated the base of the right internal jugular vein. Guidewire was advanced down to the atriocaval junction with ease. Positioning was confirmed with fluoroscopy. I anesthetized the skin of the right anterior chest wall for the pocket of the Port-A-Cath. Small skin incision was made, and the pocket was dissected free. Next, the peel-away introducer was advanced over the guidewire, and again confirmed to be in appropriate position with fluoroscopy. The catheter was measured out on the chest wall, and the tunneler was used to deliver the proximal site from the access site to the pocket. Again, great care was taken to ensure appropriate length for positioning. The catheter was flushed with saline, then advanced down through the peel-away introducer which was removed in its entirety. The catheter was then affixed to the access port after flushing the port in accordance with the manufactures instructions. Another fluoroscopic image was obtained. Tip of the catheter appeared towards the atriocaval junction. The port was then aspirated with ease, and flushed with saline once again. It was affixed into the pocket prior to aspiration 1 more time. Again, it aspirated with ease. Finally, the port was flushed with heparin. The overlying skin was reapproximated with interrupted Vicryl sutures, and skin glue was used to close the incision site. Date of Procedure: 02/01/25
--- NOTE | 2025-02-01 10:32 | W.PM.DSUDISC ---
Date of service: 02/01/25 Discharge Plan Disposition Patient Disposition: Home Condition: Good Discharge Details Reason For Visit: Insertion of Mediport Attending Provider: Blade Arredondo Primary Care Provider: Kika Norman Home Meds and New Rx's Prescriptions: Continued lisinopril 5 mg tablet 40 mg PO DAILY aspirin [Adult Aspirin Regimen] 81 mg tablet,delayed release (DR/EC) 81 mg PO DAILY glipizide 10 mg tablet 10 mg PO DAILY Januvia 100 mg tablet 100 mg PO DAILY levothyroxine 125 mcg capsule 150 mcg PO DAILY pantoprazole 40 mg tablet,delayed release (DR/EC) 40 mg PO DAILY simvastatin 20 mg tablet 20 mg PO DAILY tolterodine 1 mg tablet 1 mg PO BID citalopram 40 mg tablet 40 mg PO DAILY magnesium oxide 400 mg magnesium tablet 400 mg PO DAILY (DME) Prevail Brief Large Misc See Rx Instructions .Route Qty: 64 6RF Rx Instructions: As directed ibuprofen 600 mg tablet 600 mg PO Q6H PRN (Reason: pain) Qty: 60 0RF Discharge Instructions Additional Instructions: Stephanie, it was very nice meeting you and your son today, and I hope things go well for you. I did have to place the Mediport on the right side, because of the anatomy of the veins on your left neck and shoulder. We actually started at the bottom portion of your left neck, so you may have some soreness and bruising there, but I was not able to get the guidewire down into the appropriate location from that spot, so I had to switch to the right side. Once we transitioned over, everything sat very nicely. The port withdrawals blood, and flushes with the ease, and hopefully will provide you good access for your chemotherapy. As we talked about beforehand, there is a little lump buried under the skin of your chest wall. You can probably also feel the catheter coming up over your collarbone, and tucking down into the vein at the bottom portion of your neck. This tract will develop some bruising over the next 24 to 48 hours. Do not be alarmed by that. Ice packs will help with swelling and discomfort in the area. And as we talked about beforehand, alternating Tylenol and ibuprofen every 6 hours for the first day or 2 is probably a good strategy. As I mentioned beforehand, the port could be accessed and used tomorrow. If you need anything, or have any questions at all, please feel free to call my office at [phone] Activity:: Activity as Tolerated Shower/Bathe:: 24 hours Diet:: As Tolerated Discharge Orders Discharge Orders: Discharge Order (Routine); Ordered 02/01/25 Ordered By: Blade Arredondo DS: Diagnosis Discharge Diagnosis (1) Serous carcinoma of body of uterus: Status: Acute Asessment and Plan: Status post insertion of right internal jugular Mediport. Okay to use within 24 hours
[2025-02-01] MEDS: ceFAZolin 2 GM/50 ML BAG IVPB (10:48)
[2025-02-01] MEDS: Bupivacaine 0.5% Pres-Free W/EPI 30 ML VIAL (11:02)
--- NOTE | 2025-02-01 11:35 | DI.RAD_ITS ---
Exam(s) RF LINE PLACEMENT OR EXAM: RF LINE PLACEMENT OR CLINICAL HISTORY: mediport placement. TECHNIQUE: 2D and realtime digital imaging was performed. COMPARISON: No exams were available for comparison FINDINGS: Fluoroscopy was provided for Dr. Arredondo for guidance with placing a port. Please see procedure note for details. Fluoro time: 20.3seconds RADIATION DOSE DELIVERED: mi Castro=2.39 mGy
[2025-02-01 11:46] VITALS: BP 98/59; PULSE 80; RESP 18; TEMP 35.9; O2SAT 95
[2025-02-01] MEDS: Heparin 500 UNITS/5 ML SYRINGE (11:54)
[2025-02-01 12:22] VITALS: BP 111/60; PULSE 88; RESP 16; TEMP 36.1; O2SAT 97
--- NOTE | 2025-02-01 14:33 | W.ANESPOSTOP ---
Postoperative Evaluation Date, Time and Location Date Performed: 02/01/25 Time Performed: 14:33 Patient Location: Day Surgery Unit Vital Signs Most Recent Imported Vital Signs: Most Recent Vital Signs Temp Pulse Resp BP Pulse Ox 36.1 C L 88 16 111/60 97 02/01/25 12:22 02/01/25 12:22 02/01/25 12:22 02/01/25 12:22 02/01/25 12:22 Pain Score Most Recent Pain Score: Most Recent Pain Score Pain Level 0 02/01/25 12:22 Assessment Mental Status: Awake (Alert & Oriented to Patient Baseline) Airway and Respiratory Function: Patent airway with normal (patient baseline) respiratory exam Cardiovascular Function: Hemodynamically Stable Hydration Status: Adequately Hydrated Nausea & Vomiting: No Nausea or Vomiting Pain: Pt. Denies Any Pain Peripheral Nerve Block: Patient did not receive a nerve block
== END 2025-02-01 13:09 | disposition home or self-care (01) ==
PROVIDERS: PCP Family Medicine; Visit Provider Surgery
PROC: (CPT 36561; principal; 2025-02-01 10:00)
DX: C54.9 Malignant neoplasm of corpus uteri, unspecified (principal)
CPT/HCPCS: 36561; 77001; 71045; C1788; J0131; J0690; J1642; J2003; J2405; J2704; J3010; J3475

== ENCOUNTER 2025-02-15 03:11 | Outpatient (CLI) | payer MEDICARE, MEDICAID, SELFPAY ==
[2025-02-15 09:54] LABS: Abs Immature Grans 0.03 10^3/uL (0.0-0.06); HCT 34.6 % (36.0-46.0); HGB 10.5 g/dL (11.2-15.7); Immature Grans % 0.4 %; MCH 26.1 pg (27.0-33.0); MCHC 30.3 % (32.0-36.0); MCV 86 fL (80-95); MPV 9.1 fL (8.0-11.0); Platelet Count 428 10^3/uL (130-400); RBC 4.03 10^6/uL (3.93-5.22); RDW 20.3 % (11.7-14.6); RDW-SD 61.8 fL; WBC 8.23 10^3/uL (4.4-10.8)
[2025-02-15 10:15] LABS: Anisocytosis 2+
[2025-02-15 10:39] LABS: ALT 32 U/L (14-59); AST 17 U/L (15-37); Albumin 3.7 g/dL (3.4-5.0); Alkaline Phosphatase 153 U/L (46-116); Anion Gap 12.4 mmol/L (3-11); BUN 27 mg/dL (7-18); Bilirubin, Total 0.2 mg/dL (0.2-1.0); CO2 25.6 mmol/L (21.0-32.0); Calcium 9.8 mg/dL (8.5-10.1); Chloride 100 mmol/L (98-107); Estimated GFR 92.41 (mL/min/1.73m2); Glucose 271 mg/dL (74-106); Potassium 3.7 mmol/L (3.5-5.1); Sodium 138 mmol/L (136-145); TSH 13.14 uIU/mL (0.36-3.74); Total Protein 8.0 g/dL (6.4-8.2)
== END 2025-02-15 03:12 | disposition home or self-care (01) ==
LOC: LBO 03:11
PROVIDERS: PCP Family Medicine; Visit Provider Obstetrics & Gynecology
DX: E03.9 Hypothyroidism, unspecified (principal); C54.9 Malignant neoplasm of corpus uteri, unspecified
CPT/HCPCS: 36415; 80053; 84439; 84443; 85025

== ENCOUNTER 2025-02-28 20:05 | Outpatient (REF) | payer MEDICARE, MEDICAID, SELFPAY ==
[2025-02-28 15:41] LABS: Magnesium 0.9 mg/dL (1.8-2.4); TSH (W/Ref FT4) 17.48 uIU/mL (0.36-3.74)
== END 2025-02-28 20:06 | disposition home or self-care (01) ==
LOC: NCHCN 20:05
PROVIDERS: PCP Family Medicine; Visit Provider Family Medicine
DX: E83.42 Hypomagnesemia (principal); E03.9 Hypothyroidism, unspecified; E11.69 Type 2 diabetes mellitus with other specified complication; R39.9 Unspecified symptoms and signs involving the genitourinary system
CPT/HCPCS: 81003; 82043; 82570; 83735; 84439; 84443

== ENCOUNTER 2025-03-08 10:40 | Outpatient (CLI) | payer MEDICARE, MEDICAID, SELFPAY ==
[2025-03-08 09:37] LABS: Abs Immature Grans 0.07 10^3/uL (0.0-0.06); HCT 31.4 % (36.0-46.0); HGB 9.6 g/dL (11.2-15.7); Immature Grans % 0.6 %; MCH 26.9 pg (27.0-33.0); MCHC 30.6 % (32.0-36.0); MCV 88 fL (80-95); MPV 8.5 fL (8.0-11.0); Platelet Count 276 10^3/uL (130-400); RBC 3.57 10^6/uL (3.93-5.22); RDW 21.8 % (11.7-14.6); RDW-SD 68.9 fL; WBC 12.23 10^3/uL (4.4-10.8)
[2025-03-08 09:53] LABS: Anisocytosis 2+
[2025-03-08 10:12] LABS: ALT 27 U/L (14-59); AST 11 U/L (15-37); Albumin 3.6 g/dL (3.4-5.0); Alkaline Phosphatase 136 U/L (46-116); Anion Gap 15.3 mmol/L (3-11); BUN 20 mg/dL (7-18); Bilirubin, Total 0.2 mg/dL (0.2-1.0); CO2 21.7 mmol/L (21.0-32.0); Chloride 101 mmol/L (98-107); Estimated GFR 60.23 (mL/min/1.73m2); Glucose 264 mg/dL (74-106); Potassium 3.4 mmol/L (3.5-5.1); Sodium 138 mmol/L (136-145); TSH 6.50 uIU/mL (0.36-3.74); Total Protein 7.5 g/dL (6.4-8.2)
[2025-03-08 10:17] LABS: Calcium 9.1 mg/dL (8.5-10.1)
[2025-03-08 11:42] LABS: Magnesium 1.0 mg/dL (1.8-2.4)
== END 2025-03-08 10:41 | disposition home or self-care (01) ==
LOC: LBO 10:41
PROVIDERS: Nurse Practitioner Family; PCP Family Medicine; Visit Provider Obstetrics & Gynecology
DX: C54.9 Malignant neoplasm of corpus uteri, unspecified (principal); E03.9 Hypothyroidism, unspecified
CPT/HCPCS: 36415; 80053; 83735; 84439; 84443; 85025

== ENCOUNTER 2025-03-25 10:53 | Outpatient (CLI) | payer MEDICARE, MEDICAID, SELFPAY ==
[2025-03-25 10:56] LABS: Abs Immature Grans 0.02 10^3/uL (0.0-0.06); HCT 31.3 % (36.0-46.0); HGB 9.8 g/dL (11.2-15.7); Immature Grans % 0.3 %; MCH 28.5 pg (27.0-33.0); MCHC 31.3 % (32.0-36.0); MCV 91 fL (80-95); MPV 8.8 fL (8.0-11.0); Platelet Count 186 10^3/uL (130-400); RBC 3.44 10^6/uL (3.93-5.22); RDW 21.2 % (11.7-14.6); RDW-SD 69.3 fL; WBC 7.41 10^3/uL (4.4-10.8)
[2025-03-25 11:11] LABS: Anisocytosis 2+; Polychromasia Present
[2025-03-25 11:25] LABS: Hemoglobin A1C 8.6 % (<5.7)
[2025-03-25 12:12] LABS: ALT 34 U/L (14-59); AST 20 U/L (15-37); Albumin 3.6 g/dL (3.4-5.0); Alkaline Phosphatase 140 U/L (46-116); Anion Gap 13.2 mmol/L (3-11); BUN 15 mg/dL (7-18); Bilirubin, Total 0.3 mg/dL (0.2-1.0); CO2 23.8 mmol/L (21.0-32.0); Calcium 8.8 mg/dL (8.5-10.1); Chloride 103 mmol/L (98-107); Estimated GFR 92.41 (mL/min/1.73m2); Glucose 212 mg/dL (74-106); Potassium 4.1 mmol/L (3.5-5.1); Sodium 140 mmol/L (136-145); Total Protein 7.4 g/dL (6.4-8.2)
== END 2025-03-25 10:54 | disposition home or self-care (01) ==
LOC: LBO 10:54
PROVIDERS: PCP Family Medicine; Visit Provider Obstetrics & Gynecology
DX: C54.9 Malignant neoplasm of corpus uteri, unspecified (principal); E13.65 Other specified diabetes mellitus with hyperglycemia
CPT/HCPCS: 36415; 80053; 83036; 85025

== ENCOUNTER 2025-04-27 03:21 | Outpatient (RCR) | payer MEDICARE, MEDICAID, SELFPAY ==
[2025-04-27] MEDS: Normal Saline Flush 10 ML SYR IVP (10:28)
[2025-04-27 10:46] LABS: Abs Immature Grans 0.05 10^3/uL (0.0-0.06); HCT 33.5 % (36.0-46.0); HGB 10.5 g/dL (11.2-15.7); Immature Grans % 0.5 %; MCH 28.8 pg (27.0-33.0); MCHC 31.3 % (32.0-36.0); MCV 92 fL (80-95); MPV 9.6 fL (8.0-11.0); Platelet Count 277 10^3/uL (130-400); RBC 3.64 10^6/uL (3.93-5.22); RDW 14.4 % (11.7-14.6); RDW-SD 48.5 fL; WBC 9.57 10^3/uL (4.4-10.8)
[2025-04-27 11:02] LABS: Magnesium 1.0 mg/dL (1.8-2.4)
[2025-04-27 11:16] LABS: ALT 25 U/L (14-59); AST 18 U/L (15-37); Albumin 3.7 g/dL (3.4-5.0); Alkaline Phosphatase 134 U/L (46-116); Anion Gap 11.8 mmol/L (3-11); BUN 15 mg/dL (7-18); Bilirubin, Total 0.3 mg/dL (0.2-1.0); CO2 25.2 mmol/L (21.0-32.0); Calcium 9.4 mg/dL (8.5-10.1); Chloride 101 mmol/L (98-107); Glucose 200 mg/dL (74-106); Potassium 3.7 mmol/L (3.5-5.1); Sodium 138 mmol/L (136-145); TSH 2.33 uIU/mL (0.36-3.74); Total Protein 7.5 g/dL (6.4-8.2)
== END 2025-05-10 23:59 | disposition home or self-care (01) ==
LOC: INF 03:21
PROVIDERS: Obstetrics & Gynecology; PCP Family Medicine; Visit Provider Nurse Practitioner Family
DX: C54.9 Malignant neoplasm of corpus uteri, unspecified (principal); E03.9 Hypothyroidism, unspecified; Z45.2 Encounter for adjustment and management of vascular access device
CPT/HCPCS: 36415; 36591; 80053; 83735; 84439; 84443; 85025

== ENCOUNTER 2025-05-16 11:31 | Emergency (ER) | payer MEDICARE, MEDICAID, SELFPAY ==
[2025-05-16] VITALS (28 sets, daily range): BP systolic 101–185; BP diastolic 58–77; PULSE 68–102; RESP 10–24; TEMP 36.8; O2SAT 93–97
--- NOTE | 2025-05-16 11:45 | DI.RAD_ITS ---
Exam(s) XR FINGER RT RING EXAM: XR FINGER RT RING CLINICAL HISTORY: paronychia, eval osteo, hx immunocompromise. TECHNIQUE: 2D digital imaging was performed of the right finger. Three views were obtained. PA/AP, oblique, and lateral views were obtained. COMPARISON: No exams were available for comparison FINDINGS: BONES: No acute fracture is present. No bony destructive lesion is seen. JOINTS: No dislocation present. SOFT TISSUE: There is soft tissue swelling of the ring finger. No soft tissue gas is seen. IMPRESSION: 1. There is soft tissue swelling of the ring finger. No soft tissue gas is present. 2. No radiographic evidence to suggest osteomyelitis. DATA REPOSITORY: RADIATION DOSE DELIVERED:
--- NOTE | 2025-05-16 12:06 | W.ED.GENAD ---
Discharge Plan Disposition Patient Disposition: Home Condition: Stable Discharge Details Clinical Impression: Paronychia of finger of right hand, Hypomagnesemia Primary Care Provider: Kika Norman ED Provider: Bhumi Philip Home Meds and New Rx's Prescriptions: New doxycycline monohydrate 100 mg tablet 100 mg PO BID 9 Days Qty: 18 0RF cefpodoxime 200 mg tablet 200 mg PO BID 10 Days Qty: 20 0RF Rx Instructions: must administer with a meal/food No Action lisinopril 5 mg tablet 40 mg PO DAILY Januvia 100 mg tablet 100 mg PO DAILY levothyroxine 125 mcg capsule 150 mcg PO DAILY pantoprazole 40 mg tablet,delayed release (DR/EC) 40 mg PO DAILY simvastatin 20 mg tablet 40 mg PO DAILY citalopram 40 mg tablet 40 mg PO DAILY magnesium oxide 400 mg magnesium tablet 400 mg PO DAILY glipizide 10 mg tablet 5 mg PO DAILY amlodipine 5 mg tablet 5 mg PO DAILY (DME) Prevail Brief Large Misc See Rx Instructions .Route Qty: 64 6RF Rx Instructions: As directed ibuprofen 600 mg tablet 600 mg PO Q6H PRN (Reason: pain) Qty: 60 0RF tramadol 50 mg tablet 50 mg PO PRN Patient Comments: TAKE ONE TABLET BY MOUTH THREE TIMES A DAY NEEDED FOR ENDOMETRIAL CANCER Discharge Instructions Instructions: Paronychia ED Additional Instructions: You were seen in the emergency department today for evaluation of infection around the nails of 2 of your fingers, a condition known as paronychia. In our department he had a full physical examination performed, had reassuring laboratory studies, and received antibiotics through your IV. You were noted incidentally to have a very low magnesium level, which you have had for some time. We did provide you magnesium through the IV and you need to continue to take your oral magnesium supplementation as prescribed. I am providing you with a prescription for 2 antibiotics, to be taken twice a day for the next 10 days. The doxycycline needs to be started tonight, a bottle was sent home with you from the ED. The cefpodoxime can be started either tonight or tomorrow morning. Please take all of these medications until they are gone, even if you start to feel better. You should continue soaking the fingers to allow any pus to drain out and allow the antibiotics to work more effectively. If you develop with fever, or you are noticing worsening redness or spreading despite having taken antibiotics for 48 hours, you need to return to the emergency department for reevaluation. Please follow-up with your primary care provider in the next few days to discuss this visit and any symptoms that change, worsen, or persist. Thank you for allowing us to be part of your care. HPI General Mode of arrival: wheelchair. Date/Time Provider Initiated Documentation: 05/16/25 11:44. Limitations to Documentation: no limitations. Information obtained by: patient and old records reviewed. HPI Narrative: This is a 69-year-old female patient with a past medical history significant for stage IV uterine cancer on palliative chemotherapy, history of diabetes, presenting for evaluation of finger infections. The patient reports that a few days ago she woke up and noted swelling and pain of her right ring finger. She states that she lanced it herself and it has been draining purulent material. She has been doing warm soaks and using topical antibiotic ointment but the redness and swelling has extended down to the DIP of that finger. She also has started to develop redness and discomfort along the cuticle of the right thumb. The patient reports that she cannot think of any specific injuries to that area, she does not push back her cuticles or otherwise undergo aggressive nail care, does not bite her nails. She has not taken any antibiotics recently but does report a history of allergy to Bactrim Related Data Home Medications ?Medication ?Instructions ?Recorded ?Confirmed citalopram 40 mg tablet 40 mg PO DAILY 09/07/24 05/16/25 levothyroxine 125 mcg capsule 150 mcg PO DAILY 09/07/24 05/16/25 lisinopril 5 mg tablet 40 mg PO DAILY 09/07/24 05/16/25 magnesium oxide 400 mg PO DAILY 09/07/24 05/16/25 pantoprazole 40 mg tablet,delayed 40 mg PO DAILY 09/07/24 05/16/25 release simvastatin 20 mg tablet 40 mg PO DAILY 09/07/24 05/16/25 sitagliptin phosphate 100 mg 100 mg PO DAILY 09/07/24 05/16/25 tablet (Januvia) diaper,brief,adult,disposable #64 ea 09/30/24 05/16/25 (Prevail Brief Large) ibuprofen 600 mg tablet 600 mg PO Q6H PRN pain #60 tabs 09/30/24 05/16/25 amlodipine 5 mg tablet 5 mg PO DAILY 02/03/25 05/16/25 glipizide 10 mg tablet 5 mg PO DAILY 02/03/25 05/16/25 cefpodoxime 200 mg tablet 200 mg PO BID 10 days #20 tabs 05/16/25 doxycycline monohydrate 100 mg 100 mg PO BID 9 days #18 tabs 05/16/25 tablet tramadol 50 mg tablet 50 mg PO PRN 05/16/25 05/16/25 Previous Rx's ?Medication ?Instructions ?Recorded diaper,brief,adult,disposable #64 ea 09/30/24 (Prevail Brief Large) ibuprofen 600 mg tablet 600 mg PO Q6H PRN pain #60 tabs 09/30/24 cefpodoxime 200 mg tablet 200 mg PO BID 10 days #20 tabs 05/16/25 doxycycline monohydrate 100 mg 100 mg PO BID 9 days #18 tabs 05/16/25 tablet Allergies Allergy/AdvReac Type Severity Reaction Status Date / Time sulfamethoxazole (From Allergy Hives Verified 05/16/25 11:44 Bactrim) trimethoprim (From Bactrim) Allergy Hives Verified 05/16/25 11:44 metformin AdvReac Mild dirrhea Verified 05/16/25 11:45 General Stated Complaint: Cellulitis ADDY: 3 Exam Narrative Exam Narrative: Gen: Awake and alert, in no apparent distress HEENT: Non-icteric sclera Neck: Supple Lungs: No apparent respiratory distress, normal respiratory effort. CV: Appears well perfused Abdomen: Non-distended MSK: Moves 4 extremities without apparent limitation in ROM. The right ring finger has evidence of purulent drainage from the lateral aspect of the nail, with redness and induration extending to the DIP. She has no tenderness or swelling of the pad of the finger to suggest felon. She has full range of motion of the finger without fusiform swelling or limitation in range of motion. Well-perfused distal to this finding. She has mild redness and induration without fluctuance or drainage of the right thumb along the nail bed. Skin: Visualized skin without rashes, cyanosis. Neuro: Normal Gait, no obvious focal deficits or facial asymmetry. Speaks in full, clear sentences. Psych: Appropriate for situation. Course Vital Signs Vital signs: Vital Signs Temperature 36.8 C 05/16/25 11:35 Pulse 102 H 05/16/25 11:35 Respiratory Rate 18 05/16/25 11:35 Blood Pressure 101/71 05/16/25 11:35 Pulse Oximetry 93 05/16/25 11:35 Temperature 36.8 C 05/16/25 11:49 Temperature Source Oral 05/16/25 11:49 Pulse 102 H 05/16/25 11:49 Respiratory Rate 18 05/16/25 11:49 Blood Pressure 101/71 05/16/25 11:49 Blood Pressure Position Sitting 05/16/25 11:49 Pulse Oximetry 93 05/16/25 11:49 Oxygen Delivery Method Room Air 05/16/25 11:49 Oxygen Flow Rate 0 05/16/25 11:49 Pain Level 5 05/16/25 11:49 Lab/Test Results Lab/Test Results: 05/16/25 11:58 Blood Blood Culture - Pending 05/16/25 11:58 Blood Blood Culture - Pending Medical Decision Making This is a 69-year-old female patient presenting for evaluation of finger infections. My exam is most concerning for paronychia, my differential also included felon, osteomyelitis, sepsis and bacteremia given her immunocompromise status. I am reassured that this is already draining and I do not palpate any fluctuant pockets that would require incision and drainage at this time in the emergency department. Reassuringly, the patient has no fever or tachycardia at this time to significantly increase my concern for sepsis. Also considered neutropenic fever in this patient on chemotherapy. We will obtain labs to include blood cultures, CBC, CMP, magnesium, and inflammatory markers. I will obtain an x-ray of the right ring finger specifically to evaluate for evidence of osteomyelitis. After reviewing the patient's allergies, we will provide her with initial antibiosis to include doxycycline and ceftriaxone. - I reviewed the patient's laboratory studies, which show no leukocytosis or neutropenia, stable anemia and no thrombocytopenia. Chemistry panel is most notable for a very low magnesium to 0.9, which is actually stable when compared to priors. No other electrolyte derangements, evidence of kidney or liver dysfunction. ESR is not elevated, CRP is modestly elevated at 3.7. X-ray of her finger does not reveal any evidence of osteomyelitis and her exam is most concerning for paronychia of the 2 fingers of the right hand. The patient received her first dose of antibiotics, ceftriaxone and doxycycline given her Bactrim allergy. A prescription for doxycycline and cefpodoxime was sent to her pharmacy with instructions to complete the entire course. She also was instructed to continue soaking the hand to allow any pus to drain. The patient received 4 g of magnesium intravenously, and was instructed to follow-up with her primary care provider for recheck in the next few days. She already takes oral supplementation and will continue to do so. At this time, the patient has had a full medical evaluation and is safe for discharge to home. They are hemodynamically stable, ambulatory, and tolerating PO. They are understanding of the follow-up plan and return precautions. They left our facility without incident. Bhumi Philip MD [facility] All Active Problems (Updated 05/16/25 @ 14:25 by Bhumi Philip MD) Hypomagnesemia (Acute) Paronychia of finger of right hand (Acute) Sleep disturbance (Acute) Palliative care patient (Acute) Transportation insecurity (Acute) Panic disorder (Acute) Diplegic cerebral palsy (Acute) Ambulates with crutches or Wheelchair Hypothyroidism (Chronic) Type 2 diabetes mellitus (Acute) Bacteremia (Acute) Endometritis (Acute) Serous carcinoma of body of uterus (Acute) Postmenopausal bleeding (Acute) thickened endometrium Endo bx 09/07/24 Medical History (Updated 05/16/25 @ 14:25 by Bhumi Philip MD) Advanced care planning/counseling discussion Palliative care encounter Hypomagnesemia Psoriasis Vitamin D deficiency Anemia Steatosis of liver Urinary incontinence GERD (gastroesophageal reflux disease) Hyperlipidemia Diabetes Hypertension Surgical History (Updated 02/01/25 @ 13:15 by Sera Leone) History of insertion of central venous access port (~01/2025) History of cholecystectomy Social History Smoking/Tobacco Use Status: Never Smoking risk assessment performed?: Yes Alcohol Intake: former Drug use: Never Substance use type: marijuana Details: edibles at nights Housing: other Do you feel safe at home: Yes Do you feel safe in your relationship?: Yes Female Reproductive History Menstrual Age of Menarche: 8 History History Para 8 Hx # Term Pregnancies Multiple births Hx # Pregnancies Ectopic pregnancies AB induced Hx Number of Living Children AB spontaneous
[2025-05-16 12:33] LABS: Abs Immature Grans 0.04 10^3/uL (0.0-0.06); HCT 31.3 % (36.0-46.0); HGB 9.6 g/dL (11.2-15.7); Immature Grans % 0.5 %; MCH 28.3 pg (27.0-33.0); MCHC 30.7 % (32.0-36.0); MCV 92 fL (80-95); MPV 9.7 fL (8.0-11.0); Platelet Count 201 10^3/uL (130-400); RBC 3.39 10^6/uL (3.93-5.22); RDW 14.3 % (11.7-14.6); RDW-SD 48.2 fL; WBC 7.46 10^3/uL (4.4-10.8)
[2025-05-16] MEDS: Acetaminophen 500 MG TAB 1000 MG PO (12:34)
[2025-05-16 12:36] LABS: ESR 24 mm/hr (0-30)
[2025-05-16 12:52] LABS: ALT 31 U/L (14-59); AST 14 U/L (15-37); Albumin 3.7 g/dL (3.4-5.0); Alkaline Phosphatase 142 U/L (46-116); Anion Gap 8.9 mmol/L (3-11); BUN 17 mg/dL (7-18); Bilirubin, Total 0.2 mg/dL (0.2-1.0); C-Reactive Protein 3.74 mg/dL (<or=0.5); CO2 27.1 mmol/L (21.0-32.0); Calcium 8.9 mg/dL (8.5-10.1); Chloride 102 mmol/L (98-107); Estimated GFR 78.72 (mL/min/1.73m2); Glucose 253 mg/dL (74-106); Magnesium 0.9 mg/dL (1.8-2.4); Potassium 3.9 mmol/L (3.5-5.1); Sodium 138 mmol/L (136-145); Total Protein 7.2 g/dL (6.4-8.2)
[2025-05-16] MEDS: cefTRIAXone 1 GM/50 ML BAG IVPB (13:10)
[2025-05-16] MEDS: DOXYCYCLINE 100 MG in Normal Saline 100 ML IVPB (13:54)
[2025-05-16] MEDS: MAGNESIUM SULFATE 4 GM/100 ML BAG IV_INF (13:54)
[2025-05-16] MEDS: Doxycycline Hyclate 100 MG, 2 CAPS/BTL PO (14:52)
== END 2025-05-16 15:06 | disposition home or self-care (01) ==
PROVIDERS: Emergency Provider Emergency Medicine; PCP Family Medicine
DX: L03.011 Cellulitis of right finger (principal); E83.42 Hypomagnesemia; E11.9 Type 2 diabetes mellitus without complications
CPT/HCPCS: 36415; 80053; 85652; 87040; 96365; 96367; 96368; 99284; 73140; 83735; 85025; 86140; J0696; J3475

== ENCOUNTER 2025-05-25 01:55 | Outpatient (RCR) | payer MEDICARE, MEDICAID, SELFPAY ==
[2025-05-25 09:10] LABS: Abs Immature Grans 0.04 10^3/uL (0.0-0.06); HCT 32.4 % (36.0-46.0); HGB 10.0 g/dL (11.2-15.7); Immature Grans % 0.4 %; MCH 27.9 pg (27.0-33.0); MCHC 30.9 % (32.0-36.0); MCV 91 fL (80-95); MPV 9.1 fL (8.0-11.0); Platelet Count 198 10^3/uL (130-400); RBC 3.58 10^6/uL (3.93-5.22); RDW 14.7 % (11.7-14.6); RDW-SD 48.8 fL; WBC 10.82 10^3/uL (4.4-10.8)
[2025-05-25] MEDS: Normal Saline Flush 10 ML SYR IVP (09:13)
[2025-05-25 09:34] LABS: ALT 24 U/L (14-59); AST 15 U/L (15-37); Albumin 3.5 g/dL (3.4-5.0); Alkaline Phosphatase 163 U/L (46-116); Anion Gap 12.6 mmol/L (3-11); BUN 33 mg/dL (7-18); Bilirubin, Total 0.3 mg/dL (0.2-1.0); CO2 23.4 mmol/L (21.0-32.0); Calcium 9.3 mg/dL (8.5-10.1); Chloride 103 mmol/L (98-107); Glucose 190 mg/dL (74-106); Potassium 4.0 mmol/L (3.5-5.1); Sodium 139 mmol/L (136-145); TSH 2.56 uIU/mL (0.36-3.74); Total Protein 7.3 g/dL (6.4-8.2)
[2025-05-25 09:39] LABS: Magnesium 0.9 mg/dL (1.8-2.4)
== END 2025-06-10 23:59 | disposition home or self-care (01) ==
LOC: INF 01:55
PROVIDERS: Obstetrics & Gynecology; PCP Family Medicine; Visit Provider Nurse Practitioner Family
DX: C54.9 Malignant neoplasm of corpus uteri, unspecified (principal); E03.9 Hypothyroidism, unspecified; Z45.2 Encounter for adjustment and management of vascular access device
CPT/HCPCS: 36591; 80053; 83735; 84439; 84443; 85025

== ENCOUNTER 2025-05-31 14:09 | Outpatient (REF) | payer MEDICARE, MEDICAID, SELFPAY | END 2025-05-31 14:10 | disposition home or self-care (01) | LOC: NCHCN 14:09 | PROVIDERS: PCP Family Medicine; Visit Provider Nurse Practitioner Family | DX: B37.9 Candidiasis, unspecified (principal) | CPT/HCPCS: 87480; 87510; 87660 ==

== ENCOUNTER 2025-06-02 15:20 | Outpatient (REF) | payer MEDICARE, MEDICAID, SELFPAY ==
[2025-06-02 16:43] LABS: Glucose Negative (Negative)
[2025-06-02 16:50] LABS: C & S Indicated? Yes; RBC 20-50 HPF (0-2); WBC >50 HPF (0-5)
[2025-06-02 17:19] LABS: Microalb ug/mg Crea 57.3 ug/mg Cr
== END 2025-06-02 15:21 | disposition home or self-care (01) ==
LOC: NCHCN 15:20
PROVIDERS: PCP Family Medicine; Visit Provider Family Medicine
DX: E11.9 Type 2 diabetes mellitus without complications (principal); R39.9 Unspecified symptoms and signs involving the genitourinary system
CPT/HCPCS: 87077; 81003; 81015; 82043; 82570; 87086; 87186

== ENCOUNTER 2025-06-07 21:18 | Outpatient (REF) | payer MEDICARE, MEDICAID, SELFPAY | END 2025-06-07 21:19 | disposition home or self-care (01) | LOC: NCHCN 21:18 | PROVIDERS: PCP Family Medicine; Visit Provider Family Medicine | DX: B37.31 Acute candidiasis of vulva and vagina (principal) | CPT/HCPCS: 87480; 87510; 87660 ==

== ENCOUNTER 2025-06-15 12:53 | Outpatient (REF) | payer MEDICARE, MEDICAID, SELFPAY ==
[2025-06-15 13:59] LABS: Glucose Negative (Negative)
== END 2025-06-15 12:54 | disposition home or self-care (01) ==
LOC: NCHCN 12:53
PROVIDERS: PCP Family Medicine; Visit Provider Family Medicine
DX: R39.9 Unspecified symptoms and signs involving the genitourinary system (principal)
CPT/HCPCS: 81003

== ENCOUNTER 2025-06-23 00:14 | Outpatient (RCR) | payer MEDICARE, MEDICAID, SELFPAY ==
[2025-06-15] MEDS: Normal Saline Flush 10 ML SYR IVP (09:27)
[2025-06-15 09:35] LABS: Abs Immature Grans 0.05 10^3/uL (0.0-0.06); HCT 31.4 % (36.0-46.0); HGB 9.7 g/dL (11.2-15.7); Immature Grans % 0.6 %; MCH 28.9 pg (27.0-33.0); MCHC 30.9 % (32.0-36.0); MCV 94 fL (80-95); MPV 9.4 fL (8.0-11.0); Platelet Count 159 10^3/uL (130-400); RBC 3.36 10^6/uL (3.93-5.22); RDW 15.9 % (11.7-14.6); RDW-SD 53.0 fL; WBC 8.25 10^3/uL (4.4-10.8)
[2025-06-15 09:45] LABS: Magnesium 1.2 mg/dL (1.8-2.4)
[2025-06-15 10:00] LABS: ALT 30 U/L (14-59); AST 20 U/L (15-37); Albumin 3.4 g/dL (3.4-5.0); Alkaline Phosphatase 127 U/L (46-116); Anion Gap 9.6 mmol/L (3-11); BUN 19 mg/dL (7-18); Bilirubin, Total 0.2 mg/dL (0.2-1.0); CO2 25.4 mmol/L (21.0-32.0); Calcium 8.8 mg/dL (8.5-10.1); Chloride 103 mmol/L (98-107); Estimated GFR 78.72 (mL/min/1.73m2); Potassium 4.1 mmol/L (3.5-5.1); Sodium 138 mmol/L (136-145); TSH 65.63 uIU/mL (0.36-3.74); Total Protein 7.3 g/dL (6.4-8.2)
[2025-06-15 10:19] LABS: Glucose 171 mg/dL (74-106)
[2025-06-23] MEDS: Normal Saline Flush 10 ML SYR IVP (10:39)
== END 2025-07-10 23:59 | disposition home or self-care (01) ==
LOC: INF 00:14
PROVIDERS: Obstetrics & Gynecology; PCP Family Medicine; Visit Provider Nurse Practitioner Family
DX: C54.9 Malignant neoplasm of corpus uteri, unspecified (principal); E03.9 Hypothyroidism, unspecified; Z45.2 Encounter for adjustment and management of vascular access device
CPT/HCPCS: 36591; 80053; 96523; 83735; 84439; 84443; 85025

== ENCOUNTER → 2025-06-23 02:20 | Outpatient (CLI) | payer MEDICARE, MEDICAID, SELFPAY ==
--- NOTE | 2025-06-23 | DI.CT_ITS ---
Exam(s) CT CHEST/ABD/PEL W EXAM: CT CHEST/ABD/PEL W CLINICAL HISTORY: UTERINE CARCINOSARCOMA C54.9 ASSESS TREATMENT RESPONSE. TECHNIQUE: Imaging Protocol: Axial computed tomography images with coronal and sagittal reformatted images were created and reviewed CONTRAST MATERIAL: Intravenous: Omnipaque 350 Contrast volume:100 ml Oral: Yes. Oral contrast also administered for bowel opacification. The oral contrast has reached the rectosigmoid by the time of image acquisition. COMPARISON: CT CT CHEST/ABD/PEL W from 10/03/2024 FINDINGS: CHEST: LUNGS: There is a new noncalcified small 3 mm nodule in the right lower lobe. No other significant lung nodules. A few tiny calcified granulomas are noted in the left lung. There are no pleural effusions.. MEDIASTINUM: There is no hilar nor mediastinal adenopathy. Visualized thyroid unremarkable. CARDIAC: Heart size upper normal. No pericardial effusion. Distal tip of the right-sided Port-A-Cath is in the upper right atrium.Caliber of the thoracic aorta is within normal limits. OSSEOUS: No significant osseous lesions.No fractures.. ABDOMEN: There is no ascites. Moderate size hiatal hernia noted. LIVER: There are no focal hepatic lesions nor dilatation of intrahepatic ducts. GALLBLADDER/BILIARY: Gallbladder is again not visualized and presumed to be surgically absent. CBD is not dilated. PANCREAS: There is again noted a fat density lesion in the uncinate process of the pancreas which measures 1.8 by 1.4 by 1.4 cm, unchanged from 10/03/2024. SPLEEN: Spleen size is normal. There is, however, a wedge-shaped hypodensity now evident in the spleen which is most probably infarct. There is no subcapsular hematoma. No perisplenic fluid. Splenic and portal veins are patent. ADRENALS: There are no significant adrenal masses. KIDNEYS: No calculi nor hydronephrosis. No solid renal masses. Small cyst noted in the anterior aspect of the right kidney and in the inferior pole the left kidney. These are benign cysts at 2 not require further workup. ABDOMINAL AORTA: Abdominal aorta is not enlarged. Retroaortic left renal vein is noted, seen in 5 percent of the general population. It appears patent. LYMPH NODES: There is no retroperitoneal nor paraaortic adenopathy. ABDOMINAL WALL: No evidence of significant anterior abdominal wall nor inguinal hernia. GI: There is no evidence of bowel obstruction. No significant mesenteric masses evident. PELVIS: LYMPH NODES: There is no intrapelvic nor inguinal adenopathy. GI: No evidence of appendicitis.No evidence of sigmoid diverticulitis. URINARY BLADDER: Partially collapsed. REPRODUCTIVE: There has been interval hysterectomy. There are no adnexal masses nor abnormal tissue elsewhere in the pelvis nor free fluid. OSSEOUS: No significant osseous lesions. There are no fractures. IMPRESSION: 1. Apparent to the prior CT scan of September 2024 there has been interval hysterectomy. 2. There is no evidence of abnormal tissue nor lymphadenopathy in the pelvis nor evidence of ascites nor abnormal mesenteric masses. Also no obstruction of the urinary tracts. 3. There is a new wedge-shaped hypodensity in the spleen extending from the hilum out to the subcapsular region which has the appearance of a splenic infarct which was not evident on the prior CT scan of September 2024. There is no subcapsular hematoma and no surrounding fluid around the spleen. The splenic vein appears patent. 4. There is an unchanged well-defined fat density the lesion in the head/uncinate process of the pancreas which is unchanged from 10/03/2024, again measuring 18 x 14 x 14 mm. There is no associated dilatation of the pancreatic duct nor other lesions in the pancreas. There is no adjacent lymphadenopathy and no evidence of vascular encasement. 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 Comparison to any prior CT scans prior to September 2024 would also be helpful. 5. Other findings as above RADIATION DOSE DELIVERED: 1,353.72mGy.cm Total DLP DATA REPOSITORY: All CT scans at this facility are submitted to the National Radiology Data Registry (NRDR) Dose Index Registry (DIR) with the [employer] ([employer]). RADIATION OPTIMIZATION: All CT scans at this facility use at least one of these dose optimization techniques: automated exposure control; mA and/or kV adjustment per patient size (includes targeted exams where dose is matched to clinical indication); or iterative reconstruction.
[2025-06-23] MEDS: Barium Sulfate 2% W/V-Creamy Vanilla Smoothie 450 ML BTL PO (10:56)
[2025-06-23] MEDS: Barium Sulfate 2% W/V-Berry Smoothie 450 ML BTL PO (10:57)
[2025-06-23] MEDS: Normal Saline - Diluent 50 ML VIAL IJ (12:38)
[2025-06-23] MEDS: Normal Saline Flush 10 ML SYR IVP (12:39)
[2025-06-23] MEDS: Omnipaque 350 MG/ML 500 ML BTL-Imaging package IJ (12:40)
== END ==
PROVIDERS: PCP Family Medicine; Visit Provider Obstetrics & Gynecology
DX: C54.9 Malignant neoplasm of corpus uteri, unspecified (principal)
CPT/HCPCS: 74177; 71260

== ENCOUNTER 2025-07-19 09:10 | Inpatient (IN) | payer MEDICARE, MEDICAID, SELFPAY ==
[2025-07-19 09:11] VITALS: BP 157/66; PULSE 95; RESP 20; TEMP 37; O2SAT 95
[2025-07-19 09:22] VITALS: BP 157/66; PULSE 95; RESP 20; TEMP 37; O2SAT 95
--- NOTE | 2025-07-19 09:30 | RT.EKG_ITS ---
APPROVED REPORT Exam: Resting ECG Reason for Exam: weakness Patient Location: E HR:81 bpm ECG Measurements Heart Rate 81 AXIS OH 152 P 58 QRSd 83 QRS -4 QT 408 T 35 QTc 473 Conclusion Sinus rhythm, rate 81 No interval abnormalities No STEMI Compared to prior, tachycardia has improved
--- NOTE | 2025-07-19 09:30 | DI.RAD_ITS ---
Exam(s) XR CHEST 2V PA LATERAL EXAM: XR CHEST 2V PA LATERAL CLINICAL HISTORY: shortness of breath TECHNIQUE: 2D digital imaging was performed. Two views. COMPARISON: CR CHEST 2 VIEWS PA,LAT from 07/01/2010 CR XR PORTABLE CHEST AP from 02/01/[address] CHEST/ABD/PEL W from 06/23/2025 FINDINGS: HEART: Normal size. Aorta: Not dilated. PULMONARY VASCULATURE: Normal. MEDIASTINUM: Unremarkable. LUNGS: Question of increased densities some at the right lung base posteriorly versus overlying structures. PLEURAL SPACE: No pleural effusion or pneumothorax. BONE:Unrem prominent endplate osteophytes. SOFT TISSUES: Unremarkable. IMPRESSION: Question of right lower lobe infiltrate. DATA REPOSITORY: RADIATION DOSE DELIVERED:
--- NOTE | 2025-07-19 09:48 | W.ED.GENAD ---
Discharge Plan Disposition Patient Disposition: Admit to [facility] Condition: Serious Discharge Details Clinical Impression: CAP (community acquired pneumonia), Acute hypoxemic respiratory failure, Hypomagnesemia, Serous carcinoma of body of uterus Admit Date/Time: 07/19/25 12:51 Admit Provider: Carlos Winslow Attending Provider: Carlos Winslow Primary Care Provider: Kika Norman ED Provider: Michelle Feliciano HPI General Date/Time Provider Initiated Documentation: 07/19/25 09:11. HPI Narrative: This 70-year-old female with history of cervical cancer last chemotherapy a month and a half ago reportedly in remission, hypothyroidism, bacteremia presents with respiratory symptoms, cough despite being on Augmentin for the past several days. Denies any chest discomfort. Denies any fever. Denies history of COPD or asthma. Denies any new calf pain or swelling. Did have a rash at the onset of symptoms. Was seen by her doctor and placed on cream for the rash and antibiotics which she has been compliant with. Has been using a family members inhaler without relief. Related Data Home Medications ?Medication ?Instructions ?Recorded ?Confirmed citalopram 40 mg tablet 40 mg PO DAILY 09/07/24 07/19/25 levothyroxine 125 mcg capsule 175 mcg PO DAILY 09/07/24 07/19/25 lisinopril 5 mg tablet 40 mg PO DAILY 09/07/24 07/19/25 magnesium oxide 400 mg PO DAILY 09/07/24 07/19/25 pantoprazole 40 mg tablet,delayed 40 mg PO DAILY 09/07/24 07/19/25 release simvastatin 20 mg tablet 40 mg PO DAILY 09/07/24 07/19/25 sitagliptin phosphate 100 mg 100 mg PO DAILY 09/07/24 07/19/25 tablet (Januvia) diaper,brief,adult,disposable #64 ea 09/30/24 07/19/25 (Prevail Brief Large) ibuprofen 600 mg tablet 600 mg PO Q6H PRN pain #60 tabs 09/30/24 07/19/25 amlodipine 5 mg tablet 5 mg PO DAILY 02/03/25 07/19/25 glipizide 10 mg tablet 5 mg PO DAILY 02/03/25 07/19/25 tramadol 50 mg tablet 50 mg PO PRN 05/16/25 07/19/25 Previous Rx's ?Medication ?Instructions ?Recorded diaper,brief,adult,disposable #64 ea 09/30/24 (Prevail Brief Large) ibuprofen 600 mg tablet 600 mg PO Q6H PRN pain #60 tabs 09/30/24 Allergies Allergy/AdvReac Type Severity Reaction Status Date / Time sulfamethoxazole (From Allergy Hives Verified 07/19/25 09:22 Bactrim) trimethoprim (From Bactrim) Allergy Hives Verified 07/19/25 09:22 metformin AdvReac Mild dirrhea Verified 07/19/25 09:22 General Stated Complaint: RespSymp ADDY: 3 Exam Narrative Exam Narrative: 70-year-old female with diffuse papular rash, alert, oriented, speaking in complete sentences. Wheezes and diminished throughout, productive sounding wet cough, no acute respiratory distress, no calf swelling or tenderness cardiac rate rhythm regular Course Vital Signs Vital signs: Vital Signs Temperature 37.0 C 07/19/25 09:11 Pulse 95 H 07/19/25 09:11 Respiratory Rate 20 07/19/25 09:11 Blood Pressure 157/66 H 07/19/25 09:11 Pulse Oximetry 95 07/19/25 09:11 Temperature 37.0 C 07/19/25 09:22 Temperature Source Oral 07/19/25 09:22 Pulse 95 H 07/19/25 09:22 Respiratory Rate 20 07/19/25 09:22 Respiratory Effort Normal, Non-Labored 07/19/25 09:30 Respiratory Depth Normal 07/19/25 09:30 Blood Pressure 157/66 H 07/19/25 09:22 Blood Pressure Position Sitting 07/19/25 09:22 Pulse Oximetry 95 07/19/25 09:22 Oxygen Delivery Method Room Air 07/19/25 09:22 Oxygen Flow Rate 0 07/19/25 09:22 Pain Level 0 07/19/25 09:22 Lab/Test Results Lab/Test Results: 07/19/25 09:30 Blood Blood Culture - Pending 07/19/25 09:30 Blood Blood Culture - Pending Medical Decision Making Results: CBC does not show significant acute abnormality CMP within normal limits aside from glucose of 191, magnesium 1.4, chest x-ray per radiology interpretation my review with right lower lobe infiltrate. EKG without obvious ischemia or injury, no QTc prolongation although borderline Assessment and plan: Patient is presenting with wheezing, cough, shortness of breath despite being on antibiotics for the past 4 days. Intermittently hypoxic down to 86% with speech and movement, will place on 1 L of oxygen. VBG reassuring. Chest x-ray with right lower lobe infiltrate despite 4 days of amoxicillin. Given 2 DuoNebs with improvement of aeration remains wheezy. Methylprednisolone 125 administered and ceftriaxone 2 g IV for sepsis related likely to pneumonia doxycycline 100 mg. Port score of 92 recommendation for admission to the hospital for continued monitoring and observation. Case discussed with Dr. Winslow will admit to his service. Magnesium 800 mg supplied orally. Critical care time: 45 minutes secondary to acute hypoxic respiratory failure requiring oxygen supplementation DuoNeb administration methylprednisolone, diagnostic interpretation review diagnostic lab interpretation and review, IV antibiotics, IV fluids, monitoring, hypomagnesemia with supplementation, and ultimately admission to the hospital. PFSH All Active Problems (Updated 07/19/25 @ 14:42 by HERNAN Lutz) Hypomagnesemia (Acute) Acute hypoxemic respiratory failure (Acute) CAP (community acquired pneumonia) (Acute) Sleep disturbance (Acute) Palliative care patient (Acute) Transportation insecurity (Acute) Panic disorder (Acute) Diplegic cerebral palsy (Acute) Ambulates with crutches or Wheelchair Hypothyroidism (Chronic) Type 2 diabetes mellitus (Acute) Bacteremia (Acute) Endometritis (Acute) Serous carcinoma of body of uterus (Acute) Postmenopausal bleeding (Acute) thickened endometrium Endo bx 09/07/24 Medical History (Updated 07/19/25 @ 14:42 by HERNAN Lutz) Advanced care planning/counseling discussion Palliative care encounter Hypomagnesemia Psoriasis Vitamin D deficiency Anemia Steatosis of liver Urinary incontinence GERD (gastroesophageal reflux disease) Hyperlipidemia Diabetes Hypertension Surgical History (Updated 02/01/25 @ 13:15 by Sera Leone) History of insertion of central venous access port (~01/2025) History of cholecystectomy Social History Smoking/Tobacco Use Status: Never Smoking risk assessment performed?: Yes Alcohol Intake: former Drug use: Never Substance use type: marijuana Details: edibles at nights Housing: other Do you feel safe at home: Yes Do you feel safe in your relationship?: Yes Female Reproductive History Menstrual Age of Menarche: 8 History History Para 8 Hx # Term Pregnancies Multiple births Hx # Pregnancies Ectopic pregnancies AB induced Hx Number of Living Children AB spontaneous
[2025-07-19] MEDS: methylPREDNISolone SUCC 125 MG VIAL IVP (10:02)
[2025-07-19] MEDS: Albuterol/Ipratropium 3 ML UPD VIAL 6 ML UPD (10:02)
[2025-07-19 10:30] LABS: COVID-19 PCR Negative (Negative); RSV PCR Negative (Negative)
[2025-07-19 11:20] LABS: Abs Immature Grans 0.06 10^3/uL (0.0-0.06); HCT 32.2 % (36.0-46.0); HGB 9.6 g/dL (11.2-15.7); Immature Grans % 0.5 %; MCH 27.4 pg (27.0-33.0); MCHC 29.8 % (32.0-36.0); MCV 92 fL (80-95); MPV 9.3 fL (8.0-11.0); Platelet Count 270 10^3/uL (130-400); RBC 3.50 10^6/uL (3.93-5.22); RDW 15.9 % (11.7-14.6); RDW-SD 53.7 fL; WBC 10.96 10^3/uL (4.4-10.8)
[2025-07-19 11:20] LABS: BE (Venous) 1 mmol/L (-2-3); HCO3 (Venous) 27 mmol/L (23-28); O2 Sat (Venous) 68 %; TCO2 (Venous) 26 mmol/L (24-29); pCO2 (Venous) 50 mmHg (41-51); pO2 (Venous) 37 mmHg
[2025-07-19 11:41] LABS: Magnesium 1.4 mg/dL (1.6-2.6)
[2025-07-19 11:45] LABS: Troponin I < 3 ng/L (<35)
[2025-07-19 11:49] LABS: ALT 20 U/L (10-49); AST 20 U/L (<34); Albumin 4.3 g/dL (3.2-5.0); Alkaline Phosphatase 130 U/L (46-116); Anion Gap 8.8 mmol/L (3-11); BUN 19 mg/dL (9-23); Bilirubin, Total 0.2 mg/dL (0.2-1.2); CO2 27.2 mmol/L (20.0-31.0); Calcium 9.1 mg/dL (8.3-10.6); Chloride 107 mmol/L (98-107); Glucose 191 mg/dL (74-106); Potassium 4.1 mmol/L (3.5-5.1); Sodium 143 mmol/L (136-145); Total Protein 7.1 g/dL (5.7-8.2)
[2025-07-19] MEDS: Magnesium Oxide 400 MG TAB 800 MG PO (12:23)
[2025-07-19 12:42] LABS: Troponin I < 3 ng/L (<35)
--- NOTE | 2025-07-19 12:51 | W.PM.HP.N ---
Date of service: 07/19/25 Time of Service: 12:51 Assessment and Plan Assessment and plan (1) CAP (community acquired pneumonia): Status: Acute Assessment and plan: -without sepsis as there was no fever, leukocytosis or tachypnea -as seen on CTX -failed outpatient therapy with augmentin -started on CTX and doxy in ED, will continue (2) Acute hypoxemic respiratory failure: Status: Acute Assessment and plan: -secondary to CAP as noted above -only desats while coughing -monitor O2 and give suuplemental O2 only if SpO2>92% when not coughing (3) Serous carcinoma of body of uterus: Status: Acute Assessment and plan: -Stage [place] -recomend close f/u with oncology (4) Type 2 diabetes mellitus: Status: Acute Assessment and plan: -hold home glipizide -SSI, CCD (5) Hypothyroidism: Status: Chronic Assessment and plan: -continue home synthroid (6) Hypertension: Assessment and plan: -continue home amlodipine and lisinopril History of Present Illness History of Present Illness Chief Complaint: cough Narrative: 70-year-old female with past medical history of stage IV cervical cancer with last chemotherapy a month and a half ago, hypothyroidism presents the emergency department with cough. Patient states she has had a cough for over a week and has been on Augmentin note for the last several days but her cough has not improved. She denies any fever, shortness of breath, headache, chest pain, nausea vomiting or diarrhea. In the emergency department the patient was noted as having normal vital signs, normal CBC and CMP but did have a chest x-ray that showed possible right lower lobe infiltrate. While in the emergency department the patient was given 125 mg IV methylprednisolone, DuoNeb, IV ceftriaxone and azithromycin. While in the emergency department patient was noted to desaturate into the mid 80s while coughing. At which time emergency room provider paged hospitalist for admission for patient with community-acquired pneumonia. Review of Systems All systems reviewed & are unremarkable except as noted in HPI and below PFSH All Active Problems (Updated 07/19/25 @ 14:42 by HERNAN Lutz) Hypomagnesemia (Acute) Acute hypoxemic respiratory failure (Acute) CAP (community acquired pneumonia) (Acute) Sleep disturbance (Acute) Palliative care patient (Acute) Transportation insecurity (Acute) Panic disorder (Acute) Diplegic cerebral palsy (Acute) Ambulates with crutches or Wheelchair Hypothyroidism (Chronic) Type 2 diabetes mellitus (Acute) Bacteremia (Acute) Endometritis (Acute) Serous carcinoma of body of uterus (Acute) Postmenopausal bleeding (Acute) thickened endometrium Endo bx 09/07/24 Medical History (Updated 07/19/25 @ 14:42 by HERNAN Lutz) Advanced care planning/counseling discussion Palliative care encounter Hypomagnesemia Psoriasis Vitamin D deficiency Anemia Steatosis of liver Urinary incontinence GERD (gastroesophageal reflux disease) Hyperlipidemia Diabetes Hypertension Surgical History (Updated 02/01/25 @ 13:15 by Sera Leone) History of insertion of central venous access port (~01/2025) History of cholecystectomy Social History Smoking/Tobacco Use Status: Never Smoking risk assessment performed?: Yes Alcohol Intake: former Drug use: Never Substance use type: marijuana Details: edibles at nights Housing: house Do you feel safe at home: Yes Do you feel safe in your relationship?: Yes Female Reproductive History Menstrual Age of Menarche: 8 History History Para 8 Hx # Term Pregnancies Multiple births Hx # Pregnancies Ectopic pregnancies AB induced Hx Number of Living Children AB spontaneous Meds Allergies and Home Medications Allergies Allergy/AdvReac Type Severity Reaction Status Date / Time sulfamethoxazole (From Allergy Hives Verified 07/19/25 09:22 Bactrim) trimethoprim (From Bactrim) Allergy Hives Verified 07/19/25 09:22 metformin AdvReac Mild dirrhea Verified 07/19/25 09:22 Home Medications ?Medication ?Instructions ?Recorded ?Confirmed ?Type citalopram 40 mg tablet 40 mg PO DAILY 09/07/24 07/19/25 History levothyroxine 125 mcg capsule 175 mcg PO DAILY 09/07/24 07/19/25 History lisinopril 5 mg tablet 40 mg PO DAILY 09/07/24 07/19/25 History magnesium oxide 400 mg PO DAILY 09/07/24 07/19/25 History pantoprazole 40 mg tablet,delayed 40 mg PO DAILY 09/07/24 07/19/25 History release simvastatin 20 mg tablet 40 mg PO DAILY 09/07/24 07/19/25 History sitagliptin phosphate 100 mg 100 mg PO DAILY 09/07/24 07/19/25 History tablet (Januvia) diaper,brief,adult,disposable #64 ea 09/30/24 07/19/25 Rx (Prevail Brief Large) ibuprofen 600 mg tablet 600 mg PO Q6H PRN pain #60 tabs 09/30/24 07/19/25 Rx amlodipine 5 mg tablet 5 mg PO DAILY 02/03/25 07/19/25 History glipizide 10 mg tablet 5 mg PO DAILY 02/03/25 07/19/25 History tramadol 50 mg tablet 50 mg PO PRN 05/16/25 07/19/25 History clobetasol 0.05 % topical cream 1 applic topical BID 07/19/25 07/19/25 History Exam Narrative Exam Narrative: Fatigued but otherwise well-appearing female laying in bed in no acute distress, ANO x 4, heart regulate rhythm, lungs good auscultation bilaterally, abdomen soft, nontender, nondistended Results Labs 07/19/25 11:05 07/19/25 11:05 Labs: Laboratory Results - last 24 hr 07/19/25 07/19/25 07/19/25 09:26 11:05 11:06 WBC 10.96 H RBC 3.50 L Hgb 9.6 L Hct 32.2 L MCV 92 MCH 27.4 MCHC 29.8 L RDW 15.9 H Plt Count 270 MPV 9.3 Immature Gran % 0.5 Neutrophils % 55.8 Lymphocytes % 25.1 Monocytes % 7.9 Eosinophils % 10.2 Basophils % 0.5 Nucleated RBC % 0.0 Absolute Neutrophils 6.12 Absolute Lymphocytes 2.75 Absolute Monocytes 0.87 H Absolute Eosinophils 1.12 H Absolute Basophils 0.05 VBG pH 7.34 VBG pCO2 50 VBG pO2 37 VBG HCO3 27 VBG Total CO2 26 VBG O2 Saturation 68 VBG Base Excess 1 VBG Lactate 2.1 Sodium 143 Potassium 4.1 Chloride 107 Carbon Dioxide 27.2 Anion Gap 8.8 BUN 19 Creatinine 0.66 Est GFR (CKD-EPI 2020) 88.03 Glucose 191 H Calcium 9.1 Magnesium 1.4 L Total Bilirubin 0.2 AST 20 ALT 20 Alkaline Phosphatase 130 H Troponin I < 3 NT-Pro-B Natriuret Pep 91 Total Protein 7.1 Albumin 4.3 COVID-19 Source Nasopharynx SARS-CoV-2 (PCR) Negative Influenza Type A (PCR) Negative Influenza Type B (PCR) Negative RSV (PCR) Negative 07/19/25 12:19 WBC RBC Hgb Hct MCV MCH MCHC RDW Plt Count MPV Immature Gran % Neutrophils % Lymphocytes % Monocytes % Eosinophils % Basophils % Nucleated RBC % Absolute Neutrophils Absolute Lymphocytes Absolute Monocytes Absolute Eosinophils Absolute Basophils VBG pH VBG pCO2 VBG pO2 VBG HCO3 VBG Total CO2 VBG O2 Saturation VBG Base Excess VBG Lactate Sodium Potassium Chloride Carbon Dioxide Anion Gap BUN Creatinine Est GFR (CKD-EPI 2020) Glucose Calcium Magnesium Total Bilirubin AST ALT Alkaline Phosphatase Troponin I < 3 NT-Pro-B Natriuret Pep Total Protein Albumin COVID-19 Source SARS-CoV-2 (PCR) Influenza Type A (PCR) Influenza Type B (PCR) RSV (PCR) Last Vital Signs Temp 98.6 F 07/19/25 09:22 Pulse 95 H 07/19/25 09:22 Resp 20 07/19/25 09:22 BP 157/66 H 07/19/25 09:22 Pulse Ox 95 07/19/25 09:22 VTE Prohylaxis Risk Level: Moderate/High Risk Contraindications: None Prophylaxis: Pharmacologic Time Spent Time spent with Patient: >75 minutes Time was spent: preparing to see the patient(eg.review tests), obtaining and/or reviewing separately otained hiistory, ordering medications,tests, procedures, referring, communicating with other health transitional care liaison, indepentently interpreting results, counseling the patient and care coordination
[2025-07-19 13:19] LABS: Troponin I < 3 ng/L (<35)
--- NOTE | 2025-07-19 13:26 | W.PC.ACHO ---
Registration Status: REG ER Primary Language: Preferred Language: Setswana ED Information & Data Chief Complaint RespSymp 07/19/25 09:51 Triage Note Pt reports respiratory 07/19/25 09:11 symptoms that have gotten worse over the past couple of days- seen by PCP but treatment did not help- productive cough, hot flashes, rash, increased weakness Medical / Surgical History (Last Reviewed 02/01/25 @ 09:21 by Rebecca Tejada RN) Advanced care planning/counseling discussion Palliative care encounter Hypomagnesemia Psoriasis Vitamin D deficiency Anemia Steatosis of liver Urinary incontinence GERD (gastroesophageal reflux disease) Hyperlipidemia Diabetes Hypertension (Last Updated 02/01/25 @ 13:15 by Sera Leone) History of insertion of central venous access port (~01/2025) History of cholecystectomy Most Recent Vital Signs Temperature 37.0 C 07/19/25 09:22 Temperature Source Oral 07/19/25 09:22 Pulse 95 H 07/19/25 09:22 Respiratory Rate 20 07/19/25 09:22 Respiratory Effort Normal, Non-Labored 07/19/25 09:30 Respiratory Depth Normal 07/19/25 09:30 Blood Pressure 157/66 H 07/19/25 09:22 Blood Pressure Position Sitting 07/19/25 09:22 Pulse Oximetry 95 07/19/25 09:22 Oxygen Delivery Method Room Air 07/19/25 09:22 Oxygen Flow Rate 0 07/19/25 09:22 Pain Level 0 07/19/25 09:22 Allergies sulfamethoxazole (From Bactrim) Allergy (Verified 07/19/25 09:22) Hives trimethoprim (From Bactrim) Allergy (Verified 07/19/25 09:22) Hives metformin Adverse Reaction (Mild, Verified 07/19/25 09:22) dirrhea Precautions Isolation Standard precaution 07/19/25 09:21 IV IV Catheter Type [Right] Port-a-cath (double) IV Catheter Gauge [Right] 19 Diagnostics 07/19/25 07/19/25 07/19/25 Range/Units 12:50 12:19 11:06 WBC (4.4-10.8) 10^3/uL RBC (3.93-5.22) 10^6/uL Hgb (11.2-15.7) g/dL Hct (36.0-46.0) % MCV (80-95) fL MCH (27.0-33.0) pg MCHC (32.0-36.0) % RDW (11.7-14.6) % Plt Count (130-400) 10^3/uL MPV (8.0-11.0) fL Immature Gran % % Neutrophils % % Lymphocytes % % Monocytes % % Eosinophils % % Basophils % % Nucleated RBC % (0.0-0.3) % Absolute Neutrophils (1.2-6.7) 10^3/uL Absolute Lymphocytes (1.2-3.4) 10^3/uL Absolute Monocytes (0.1-0.8) 10^3/uL Absolute Eosinophils (0.0-0.7) 10^3/uL Absolute Basophils (0.0-0.2) 10^3/uL VBG pH 7.34 (7.31-7.41) VBG pCO2 50 (41-51) mmHg VBG pO2 37 mmHg VBG HCO3 27 (23-28) mmol/L VBG Total CO2 26 (24-29) mmol/L VBG O2 Saturation 68 % VBG Base Excess 1 (-2-3) mmol/L VBG Lactate 2.1 (<or=2.0) mmol/L Sodium (136-145) mmol/L Potassium (3.5-5.1) mmol/L Chloride (98-107) mmol/L Carbon Dioxide (20.0-31.0) mmol/L Anion Gap (3-11) mmol/L BUN (9-23) mg/dL Creatinine (0.55-1.02) mg/dL Est GFR (CKD-EPI 2020) (mL/min/1.73m2) Glucose (74-106) mg/dL Calcium (8.3-10.6) mg/dL Magnesium (1.6-2.6) mg/dL Total Bilirubin (0.2-1.2) mg/dL AST (<34) U/L ALT (10-49) U/L Alkaline Phosphatase (46-116) U/L Troponin I < 3 < 3 (<35) ng/L NT-Pro-B Natriuret Pep (<300) pg/mL Total Protein (5.7-8.2) g/dL Albumin (3.2-5.0) g/dL COVID-19 Source SARS-CoV-2 (PCR) (Negative) Influenza Type A (PCR) (Negative) Influenza Type B (PCR) (Negative) RSV (PCR) (Negative) 07/19/25 07/19/25 Range/Units 11:05 09:26 WBC 10.96 H (4.4-10.8) 10^3/uL RBC 3.50 L (3.93-5.22) 10^6/uL Hgb 9.6 L (11.2-15.7) g/dL Hct 32.2 L (36.0-46.0) % MCV 92 (80-95) fL MCH 27.4 (27.0-33.0) pg MCHC 29.8 L (32.0-36.0) % RDW 15.9 H (11.7-14.6) % Plt Count 270 (130-400) 10^3/uL MPV 9.3 (8.0-11.0) fL Immature Gran % 0.5 % Neutrophils % 55.8 % Lymphocytes % 25.1 % Monocytes % 7.9 % Eosinophils % 10.2 % Basophils % 0.5 % Nucleated RBC % 0.0 (0.0-0.3) % Absolute Neutrophils 6.12 (1.2-6.7) 10^3/uL Absolute Lymphocytes 2.75 (1.2-3.4) 10^3/uL Absolute Monocytes 0.87 H (0.1-0.8) 10^3/uL Absolute Eosinophils 1.12 H (0.0-0.7) 10^3/uL Absolute Basophils 0.05 (0.0-0.2) 10^3/uL VBG pH (7.31-7.41) VBG pCO2 (41-51) mmHg VBG pO2 mmHg VBG HCO3 (23-28) mmol/L VBG Total CO2 (24-29) mmol/L VBG O2 Saturation % VBG Base Excess (-2-3) mmol/L VBG Lactate (<or=2.0) mmol/L Sodium 143 (136-145) mmol/L Potassium 4.1 (3.5-5.1) mmol/L Chloride 107 (98-107) mmol/L Carbon Dioxide 27.2 (20.0-31.0) mmol/L Anion Gap 8.8 (3-11) mmol/L BUN 19 (9-23) mg/dL Creatinine 0.66 (0.55-1.02) mg/dL Est GFR (CKD-EPI 2020) 88.03 (mL/min/1.73m2) Glucose 191 H (74-106) mg/dL Calcium 9.1 (8.3-10.6) mg/dL Magnesium 1.4 L (1.6-2.6) mg/dL Total Bilirubin 0.2 (0.2-1.2) mg/dL AST 20 (<34) U/L ALT 20 (10-49) U/L Alkaline Phosphatase 130 H (46-116) U/L Troponin I < 3 (<35) ng/L NT-Pro-B Natriuret Pep 91 (<300) pg/mL Total Protein 7.1 (5.7-8.2) g/dL Albumin 4.3 (3.2-5.0) g/dL COVID-19 Source Nasopharynx SARS-CoV-2 (PCR) Negative (Negative) Influenza Type A (PCR) Negative (Negative) Influenza Type B (PCR) Negative (Negative) RSV (PCR) Negative (Negative) 07/19/25 12:50 Blood Culture - Pending Blood 07/19/25 12:41 Blood Culture - Pending Blood Intake and Output - 24 Hour Total 07/19/25 09:10 thru 07/19/25 11:08 Intake Total 10 Balance 10 Weight 93.894 kg Intake: IV 10 Falls Risk Assessment History of Falls Previous History 07/19/25 09:29 Contributing Factors Impairments,Medications 07/19/25 09:29 Ambulatory Aids Uses ambulatory device + 07/19/25 09:29 Tubes/Lines With any additional score 07/19/25 09:29 Gait Evaluation W/any additional score 07/19/25 09:29 Cognition No cognitive impairment 07/19/25 09:29 Fall Total Score 91 07/19/25 09:29 Level of Risk Maximum Risk 07/19/25 09:29 Problems (Last Reviewed 02/01/25 @ 09:21 by Rebecca Tejada RN) Acute hypoxemic respiratory failure (Acute) CAP (community acquired pneumonia) (Acute) Hypothyroidism (Chronic) Type 2 diabetes mellitus (Acute) Serous carcinoma of body of uterus (Acute) Attestation Statement: By documenting the first initial, last name, and credentials of the reporting nurse below, both parties acknowledge that all relevant information regarding the patient handoff has been communicated, and that all questions have been addressed to ensure continuity and safety of care. Additional Patient Information/Comments: Report Received From: called ED for report, RN attending to patient at this time, awaiting call back from ED
[2025-07-19] MEDS: cefTRIAXone 2 GM/50 ML BAG IVPB (13:38)
[2025-07-19] MEDS: DOXYCYCLINE 100 MG in Normal Saline 100 ML IVPB (14:51)
[2025-07-19] MEDS: Normal Saline 500 ML 250 ML IV (14:54)
[2025-07-19 15:33] VITALS: BP 140/75; BP 143/77; PULSE 94; PULSE 95; RESP 15; RESP 16; TEMP 36.3; TEMP 36.7; O2SAT 90; O2SAT 91
[2025-07-19] MEDS: Insulin Aspart 300 UNITS/3 ML PEN SC ×2 (17:08→21:17)
[2025-07-19 17:14] VITALS: O2SAT 92
[2025-07-19 19:52] VITALS: BP 158/72; PULSE 98; RESP 18; TEMP 35.9; O2SAT 92
[2025-07-19] MEDS: Doxycycline Hyclate 100 MG CAP PO (19:56)
[2025-07-20 03:28] VITALS: BP 171/89; PULSE 85; RESP 18; TEMP 36.4; O2SAT 94
[2025-07-20 05:41] VITALS: BP 157/79; PULSE 85; RESP 17; TEMP 36.5; O2SAT 93
[2025-07-20] MEDS: Acetaminophen 325 MG TAB 650 MG PO (05:48)
[2025-07-20 06:21] LABS: Magnesium 1.3 mg/dL (1.6-2.6)
[2025-07-20 06:22] LABS: Anion Gap 11.7 mmol/L (3-11); BUN 18 mg/dL (9-23); CO2 25.3 mmol/L (20.0-31.0); Calcium 9.2 mg/dL (8.3-10.6); Chloride 105 mmol/L (98-107); Glucose 260 mg/dL (74-106); Potassium 4.0 mmol/L (3.5-5.1); Sodium 142 mmol/L (136-145)
[2025-07-20] MEDS: guaiFENesin/CODEINE PHOSPHATE 10 ML CUP 5 ML PO (06:25)
[2025-07-20 06:42] LABS: HCT 29.7 % (36.0-46.0); HGB 9.1 g/dL (11.2-15.7); MCH 27.3 pg (27.0-33.0); MCHC 30.6 % (32.0-36.0); MCV 89 fL (80-95); MPV 9.4 fL (8.0-11.0); Platelet Count 309 10^3/uL (130-400); RBC 3.33 10^6/uL (3.93-5.22); RDW 16.0 % (11.7-14.6); RDW-SD 52.3 fL; WBC 13.47 10^3/uL (4.4-10.8)
[2025-07-20 07:33] VITALS: BP 152/74; PULSE 81; RESP 17; TEMP 36.9; O2SAT 93
[2025-07-20] MEDS: amLODIPine 5 MG TAB PO (08:15)
[2025-07-20] MEDS: Magnesium Oxide 400 MG TAB PO (08:15)
[2025-07-20] MEDS: Citalopram 20 MG TAB 40 MG PO (08:15)
[2025-07-20] MEDS: Pantoprazole 40 MG TABCR PO (08:15)
[2025-07-20] MEDS: Levothyroxine 175 MCG TAB PO (08:15)
[2025-07-20] MEDS: Simvastatin 20 MG TAB 40 MG PO (08:15)
[2025-07-20] MEDS: Enoxaparin 40 MG/0.4 ML SYR SC (08:16)
[2025-07-20] MEDS: Lisinopril 20 MG TAB 40 MG PO (08:16)
[2025-07-20] MEDS: Doxycycline Hyclate 100 MG CAP PO (08:16)
[2025-07-20] MEDS: Insulin Aspart 300 UNITS/3 ML PEN SC (08:16)
--- NOTE | 2025-07-20 09:07 | DSE_ITS ---
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 (4) Type 2 diabetes mellitus: Status: Acute (5) Hypothyroidism: Status: Chronic (6) Hypertension: Discharge Plan Disposition Patient Disposition: Home Condition: Good Discharge Details Reason For Visit: CAP, Acute Hypoxic Respiratory Failure Admit Date/Time: 07/19/25 12:51 Admit Provider: Carlos Winslow Attending Provider: Carlos Winslow Primary Care Provider: Kika Norman Hospital Course Hospital Course: Patient initially presented with signs and symptoms consistent with a community- acquired pneumonia and mild hypoxic respiratory failure she was noted to desaturate while having episodes of coughing. She was started on ceftriaxone and doxycycline and had significant improvement of her symptoms overnight and did not require any supplemental oxygen. Given the patient had significant improvement of her symptoms it was determined that she was stable for discharge home with an additional 5 days of p.o. cefpodoxime and doxycycline. Home Meds and New Rx's Prescriptions: New doxycycline hyclate 100 mg Capsule 100 mg PO BID Qty: 10 0RF cefpodoxime 200 mg tablet 200 mg PO BID Qty: 10 0RF Rx Instructions: must administer with a meal/food Continued lisinopril 5 mg tablet 40 mg PO DAILY Januvia 100 mg tablet 100 mg PO DAILY levothyroxine 125 mcg capsule 175 mcg PO DAILY simvastatin 20 mg tablet 40 mg PO DAILY citalopram 40 mg tablet 40 mg PO DAILY magnesium oxide 400 mg magnesium tablet 400 mg PO DAILY glipizide 10 mg tablet 5 mg PO DAILY amlodipine 5 mg tablet 5 mg PO DAILY ibuprofen 600 mg tablet 600 mg PO Q6H PRN (Reason: pain) Qty: 60 0RF tramadol 50 mg tablet 50 mg PO PRN Patient Comments: TAKE ONE TABLET BY MOUTH THREE TIMES A DAY NEEDED FOR ENDOMETRIAL CANCER clobetasol 0.05 % cream 1 applic TOPICAL BID Patient Comments: APPLY TO AFFECTED AREA(S) TWO TIMES A DAY A THIN LAYER Held pantoprazole 40 mg tablet,delayed release (DR/EC) 40 mg PO DAILY Hold Instructions: Resume on 07/25/25. No Action (DME) Prevail Brief Large Misc See Rx Instructions .Route Qty: 64 6RF Rx Instructions: As directed Discharge Instructions Stand Alone Forms: Portal Information Activity:: Activity as Tolerated Equipment/Supplies:: No Equipment Needed Diet:: As Tolerated Discharge Orders Discharge Orders: Discharge Order (Routine); Ordered 07/20/25 Ordered By: Carlos Winslow DS: Summary Time Spent with Patient providing and/or coordinating discharge services: Greater than 30 minutes Status at Discharge Functional status at discharge: independent ambulation Overall status at discharge: patient is back to baseline Mental Status: mental status grossly normal Speech and Movement: speech and movement normal Mood: congruent mood Affect: normal affect Exam Narrative Exam Narrative: Well-appearing female laying in bed in no acute distress, ANO x 4, heart regulate rhythm, lungs good auscultation bilaterally, abdomen soft, nontender, nondistended Psych Mental Status: mental status grossly normal Speech and Movement: speech and movement normal Mood: congruent mood Affect: normal affect DS: Data Vitals/I&O Vitals and I&O: Vital Signs Temperature 98.4 F 07/20/25 07:33 Temperature Source Temporal Artery Scan 07/20/25 07:33 Pulse 81 07/20/25 07:33 Respiratory Rate 17 07/20/25 07:33 Respiratory Effort Short of Breath 07/19/25 15:33 Respiratory Depth Normal 07/19/25 15:33 Respiratory Pattern Normal 07/19/25 15:33 Blood Pressure 152/74 H 07/20/25 07:33 Blood Pressure Mean 100 07/20/25 07:33 Blood Pressure Position Sitting 07/19/25 09:22 Pulse Oximetry 93 07/20/25 07:33 Oxygen Delivery Method Room Air 07/20/25 07:33 Oxygen Flow Rate 0 07/20/25 07:33 Pain Level 0 07/19/25 15:33 Intake & Output 07/19/25 07/20/25 07/20/25 17:59 05:59 17:59 Intake Total 280 / 280 850 / 1130 Balance 280 / 280 850 / 1130 Weight 207 lb Intake: IV 60 / 60 610 / 670 Oral 220 / 220 240 / 460 Other: Urine Color Yellow Yellow Urine Appearance Clear Cloudy Urine Odor Normal Stool Size Moderate Stool Characteristics Soft Data Completed and Pending Pending Labs at Discharge: 07/19/25 07/19/25 07/19/25 09:26 11:05 11:06 WBC 10.96 H RBC 3.50 L Hgb 9.6 L Hct 32.2 L MCV 92 MCH 27.4 MCHC 29.8 L RDW 15.9 H Plt Count 270 MPV 9.3 Immature Gran % 0.5 Neutrophils % 55.8 Lymphocytes % 25.1 Monocytes % 7.9 Eosinophils % 10.2 Basophils % 0.5 Nucleated RBC % 0.0 Absolute Neutrophils 6.12 Absolute Lymphocytes 2.75 Absolute Monocytes 0.87 H Absolute Eosinophils 1.12 H Absolute Basophils 0.05 VBG pH 7.34 VBG pCO2 50 VBG pO2 37 VBG HCO3 27 VBG Total CO2 26 VBG O2 Saturation 68 VBG Base Excess 1 VBG Lactate 2.1 Sodium 143 Potassium 4.1 Chloride 107 Carbon Dioxide 27.2 Anion Gap 8.8 BUN 19 Creatinine 0.66 Est GFR (CKD-EPI 2020) 88.03 Glucose 191 H Calcium 9.1 Magnesium 1.4 L Total Bilirubin 0.2 AST 20 ALT 20 Alkaline Phosphatase 130 H Troponin I < 3 NT-Pro-B Natriuret Pep 91 Total Protein 7.1 Albumin 4.3 COVID-19 Source Nasopharynx SARS-CoV-2 (PCR) Negative Influenza Type A (PCR) Negative Influenza Type B (PCR) Negative RSV (PCR) Negative 07/19/25 07/19/25 07/20/25 12:19 12:50 05:47 WBC 13.47 H RBC 3.33 L Hgb 9.1 L Hct 29.7 L MCV 89 MCH 27.3 MCHC 30.6 L RDW 16.0 H Plt Count 309 MPV 9.4 Immature Gran % Neutrophils % Lymphocytes % Monocytes % Eosinophils % Basophils % Nucleated RBC % Absolute Neutrophils Absolute Lymphocytes Absolute Monocytes Absolute Eosinophils Absolute Basophils VBG pH VBG pCO2 VBG pO2 VBG HCO3 VBG Total CO2 VBG O2 Saturation VBG Base Excess VBG Lactate Sodium 142 Potassium 4.0 Chloride 105 Carbon Dioxide 25.3 Anion Gap 11.7 H BUN 18 Creatinine 0.57 Est GFR (CKD-EPI 2020) 104.25 Glucose 260 H Calcium 9.2 Magnesium 1.3 L Total Bilirubin AST ALT Alkaline Phosphatase Troponin I < 3 < 3 NT-Pro-B Natriuret Pep Total Protein Albumin COVID-19 Source SARS-CoV-2 (PCR) Influenza Type A (PCR) Influenza Type B (PCR) RSV (PCR) Preliminary micro results at discharge 07/19/25 12:50 Blood Blood Culture - Pending 07/19/25 12:41 Blood Blood Culture - Pending [facility], [facility] All Active Problems (Updated 07/19/25 @ 14:42 by HERNAN Lutz) Hypomagnesemia (Acute) Acute hypoxemic respiratory failure (Acute) CAP (community acquired pneumonia) (Acute) Sleep disturbance (Acute) Palliative care patient (Acute) Transportation insecurity (Acute) Panic disorder (Acute) Diplegic cerebral palsy (Acute) Ambulates with crutches or Wheelchair Hypothyroidism (Chronic) Type 2 diabetes mellitus (Acute) Bacteremia (Acute) Endometritis (Acute) Serous carcinoma of body of uterus (Acute) Postmenopausal bleeding (Acute) thickened endometrium Endo bx 09/07/24 Medical History (Updated 07/19/25 @ 14:42 by HERNAN Lutz) Advanced care planning/counseling discussion Palliative care encounter Hypomagnesemia Psoriasis Vitamin D deficiency Anemia Steatosis of liver Urinary incontinence GERD (gastroesophageal reflux disease) Hyperlipidemia Diabetes Hypertension Surgical History (Updated 02/01/25 @ 13:15 by Sera Leone) History of insertion of central venous access port (~01/2025) History of cholecystectomy Social History Smoking/Tobacco Use Status: Never Smoking risk assessment performed?: Yes Alcohol Intake: former Drug use: Never Substance use type: marijuana Details: edibles at nights Housing: house Do you feel safe at home: Yes Do you feel safe in your relationship?: Yes Female Reproductive History Menstrual Age of Menarche: 8 History History Para 8 Hx # Term Pregnancies Multiple births Hx # Pregnancies Ectopic pregnancies AB induced Hx Number of Living Children AB spontaneous Time Spent with Patient Time Spent with Patient: <45 minutes Time was spent: preparing to see the patient(eg.review tests), obtaining and/or reviewing separately otained hiistory, ordering medications,tests, procedures, referring, communicating with other health healthcare network pricing consultant, indepentently interpreting results, counseling the patient and care coordination
[2025-07-20] MEDS: Triamcinolone 0.1% CR 15 GM TUBE TP (09:58)
--- NOTE | 2025-07-20 10:01 | PDOC.CMDIS ---
Date of service: 07/20/25 Time of Service: 10:01 LACE Index Scoring Tool Questions: Length of Stay (in days): 1 Was the patient admitted via the E.D.?: Yes Comorbidities: Diabetes w/o Complication E.D. Visits: 2 Answers: Total Score: 7 Risk of Readmission: Low Risk Care Management Discharge Plan Reason for Hospitalization: CAP Discharge Plan: Stephanie is discharged home via private vehicle with family. Patient will follow up with community providers and continue per the discharge plan of care. No new services were ordered, prior to discharge. Please note, patient was discharged before CM could meet with her. Patient/Family Education Needs: Review discharge instructions and plan to follow up. Discuss ask me three.
[2025-07-20] MEDS: Normal Saline Flush 10 ML SYR (10:31)
== END 2025-07-20 10:30 | disposition home or self-care (01) | DRG 193 ==
LOC: ER 13:19 → MS 13:55
PROVIDERS: Admitting Provider Family Medicine; Emergency Provider Physician Assistant; PCP Family Medicine; Responsible Provider Family Medicine; Visit Provider Family Medicine
DX: J18.9 Pneumonia, unspecified organism (principal); J96.01 Acute respiratory failure with hypoxia; E11.9 Type 2 diabetes mellitus without complications; E03.9 Hypothyroidism, unspecified; I10 Essential (primary) hypertension; Z85.41 Personal history of malignant neoplasm of cervix uteri; Z79.899 Other long term (current) drug therapy; Z79.84 Long term (current) use of oral hypoglycemic drugs; R21 Rash and other nonspecific skin eruption; E83.42 Hypomagnesemia; Z59.82 Transportation insecurity; F41.0 Panic disorder [episodic paroxysmal anxiety]; G80.8 Other cerebral palsy; K21.9 Gastro-esophageal reflux disease without esophagitis; K76.0 Fatty (change of) liver, not elsewhere classified; R32 Unspecified urinary incontinence; E78.5 Hyperlipidemia, unspecified; D64.9 Anemia, unspecified; L40.9 Psoriasis, unspecified
CPT/HCPCS: 00123; 36415; 80048; 80053; 82805; 85027; 87040; 87637; 93005; 94640; 96374; 99291; J1650; 71046; 83605; 83735; 83880; 84484; 85025; 93010; 99223; 99239; J0696; J1815; J2919; J7620

== ENCOUNTER 2025-08-10 02:12 | Outpatient (RCR) | payer MEDICARE, MEDICAID, SELFPAY ==
[2025-07-27 14:12] LABS: Abs Immature Grans 0.06 10^3/uL (0.0-0.06); HCT 33.1 % (36.0-46.0); HGB 10.3 g/dL (11.2-15.7); Immature Grans % 0.5 %; MCH 27.5 pg (27.0-33.0); MCHC 31.1 % (32.0-36.0); MCV 89 fL (80-95); MPV 9.4 fL (8.0-11.0); Platelet Count 283 10^3/uL (130-400); RBC 3.74 10^6/uL (3.93-5.22); RDW 15.8 % (11.7-14.6); RDW-SD 51.4 fL; WBC 12.12 10^3/uL (4.4-10.8)
[2025-07-27 14:41] LABS: ALT 18 U/L (10-49); AST 16 U/L (<34); Albumin 4.2 g/dL (3.2-5.0); Alkaline Phosphatase 147 U/L (46-116); Anion Gap 11.2 mmol/L (3-11); BUN 20 mg/dL (9-23); Bilirubin, Total 0.4 mg/dL (0.2-1.2); CO2 22.8 mmol/L (20.0-31.0); Calcium 8.9 mg/dL (8.3-10.6); Chloride 105 mmol/L (98-107); Glucose 215 mg/dL (74-106); Potassium 3.5 mmol/L (3.5-5.1); Sodium 139 mmol/L (136-145); Total Protein 7.2 g/dL (5.7-8.2)
[2025-07-27 14:43] LABS: TSH 1.45 uIU/mL (0.55-4.78)
[2025-07-27 23:33] LABS: CA 125 8 U/mL (<30)
== END 2025-08-10 23:59 | disposition home or self-care (01) ==
LOC: INF 02:12
PROVIDERS: Obstetrics & Gynecology; PCP Family Medicine; Visit Provider Nurse Practitioner Family
DX: C54.9 Malignant neoplasm of corpus uteri, unspecified (principal); E03.9 Hypothyroidism, unspecified
CPT/HCPCS: 36415; 80053; 86304; 84439; 84443; 85025